=== PATIENT | male | born 1935 | race Caucasian/White ===

== ENCOUNTER 2016-12-19 11:52 | Emergency (ER) | payer MEDICARE, OTHER ==
[~2016-12-19] VITALS: Ht 172.7 cm; Wt 80.3 kg
[2016-12-19] MEDS ORDERED: HYDR25TAB PO (12:04)
[2016-12-19] MEDS ORDERED: MAGN30TA2 PO (12:04)
[2016-12-19] MEDS ORDERED: MULT1TAB18 PO (12:04)
[2016-12-19] MEDS ORDERED: NS 500 ML IV ONE (12:30)
[2016-12-19 12:39] LABS: BASO % 0.7 % (0.0-1.0); EOS # 0.4 K/mm3 (0.0-0.50); EOS % 5.3 % (0.0-3.0); LARGE UNSTAINED CELL # 0.2 K/mm3 (0.0-0.4); LARGE UNSTAINED CELL % 2.3 % (0.0-4.0); LYMPH # 2.1 K/mm3 (1.5-4.5); LYMPH % 28.9 % (24.0-44.0); MEAN CORPUSCULAR HEMOGLOBIN 33.1 pg (27.0-33.0); MEAN CORPUSCULAR HGB CONC 35.4 g/dl (32.0-36.5); MEAN CORPUSCULAR VOLUME 93.4 fl (80.0-96.0); MONO # 0.5 K/mm3 (0.0-0.8); MONO % 7.5 % (0.0-5.0); NEUTROPHILS # 3.7 K/mm3 (1.8-7.7); NEUTROPHILS % 55.4 % (36.0-66.0); PLATELET COUNT, AUTOMATED 240 k/mm3 (150-450); RED CELL DISTRIBUTION WIDTH 12.5 % (11.5-14.5); WHITE BLOOD COUNT 6.7 K/mm3 (4.0-10.0)
[2016-12-19 12:46] LABS: ANION GAP 11 MEQ/L (8-16); BLOOD UREA NITROGEN 30 MG/DL (7-18); CALCIUM LEVEL 8.2 MG/DL (8.8-10.2); CARBON DIOXIDE LEVEL 25 MEQ/L (21-32); CHLORIDE LEVEL 97 MEQ/L (98-107); CREATININE FOR GFR 1.13 MG/DL (0.70-1.30); GLOMERULAR FILTRATION RATE > 60.0 (>35); GLUCOSE, FASTING 136 MG/DL (83-110); POTASSIUM SERUM 3.9 MEQ/L (3.5-5.1); SODIUM LEVEL 133 MEQ/L (136-145)
--- NOTE | 2016-12-19 13:59 | REP ---
CT BRAIN WITHOUT CONTRAST: CT brain is performed without IV contrast. There is mild atrophy. There is no midline shift. No mass effect is seen. There is no acute hemorrhage. There is no extra-axial fluid collection. There is no skull fracture identified. There are vascular calcifications in the region of the carotid siphons. IMPRESSION: Mild atrophy. No acute hemorrhage. No skull fracture. Signed by Vernon Ross MD 12/19/2016 07:57 P
--- NOTE | 2016-12-19 14:02 | REP ---
CHEST, TWO VIEWS: No comparison studies. Two views of the chest are performed. Mild increased interstitial opacities in the lower lung zones are probably chronic in nature. No acute infiltrate is seen. The heart is normal in size. There is a calcified mitral annulus and mild calcification of the thoracic aorta. There are degenerative changes of the spine. IMPRESSION: Chronic changes without evidence of acute pulmonary disease. Signed by Vernon Ross MD 12/19/2016 07:57 P
[2016-12-19 15:05] VITALS: BP 146/64
--- NOTE | 2016-12-20 20:55 | ECGEPIP ---
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
== END 2016-12-19 15:07 | disposition home or self-care (01) ==
LOC: EDBD 11:52 → M ED 13:55
DX: R55 Syncope and collapse (principal); S01.01XA Laceration without foreign body of scalp, initial encounter; W19.XXXA Unspecified fall, initial encounter; Y92.22 Religious institution as the place of occurrence of the external cause; Y93.89 Activity, other specified; Y99.8 Other external cause status; I44.0 Atrioventricular block, first degree; I10 Essential (primary) hypertension; Z87.891 Personal history of nicotine dependence

== ENCOUNTER 2017-03-25 12:26 | Inpatient (IN) | payer MEDICARE, OTHER ==
[~2017-03-25] VITALS: Ht 172.7 cm; Wt 73.6 kg
[~2017-03-25 12:26] MED LIST: HYDR25TAB PO; MAGN30TA2 PO; MULT1TAB18 PO
[2017-03-25] MEDS ORDERED: SIMV40TA2 PO (12:43)
[2017-03-25] MEDS ORDERED: ASPI81TA85 PO (12:43)
[2017-03-25] MEDS ORDERED: PLAV1TAB2 PO (12:43)
[2017-03-25] MEDS ORDERED: METO50TA7 PO (12:43)
[2017-03-25] MEDS ORDERED: TRAZ50TA11 PO (12:43)
[2017-03-25] MEDS ORDERED: FLOM5CAP PO (12:43)
[2017-03-25] MEDS ORDERED: ACETAMINOPHEN TAB 650MG DOSE (2X325MG) PO ONE (13:30)
[2017-03-25 13:49] LABS: INR 1.07
[2017-03-25 13:56] LABS: ALBUMIN 2.5 GM/DL (3.2-5.2); ALBUMIN/GLOBULIN RATIO 0.63 (1.00-1.93); ALKALINE PHOSPHATASE 190 U/L (45-117); ALT/SGPT 77 U/L (12-78); ANION GAP 8 MEQ/L (8-16); AST/SGOT 51 U/L (15-37); BILIRUBIN,DIRECT 0.5 MG/DL (0.0-0.2); BILIRUBIN,TOTAL 1.1 MG/DL (0.2-1.0); BLOOD UREA NITROGEN 18 MG/DL (7-18); CALCIUM LEVEL 8.4 MG/DL (8.8-10.2); CARBON DIOXIDE LEVEL 24 MEQ/L (21-32); CHLORIDE LEVEL 94 MEQ/L (98-107); CREATININE FOR GFR 0.97 MG/DL (0.70-1.30); GLOMERULAR FILTRATION RATE > 60.0 (>35); GLUCOSE, FASTING 114 MG/DL (83-110); POTASSIUM SERUM 3.9 MEQ/L (3.5-5.1); SODIUM LEVEL 126 MEQ/L (136-145); TOTAL PROTEIN 6.5 GM/DL (6.4-8.2)
[2017-03-25 14:09] LABS: BASO % 0.1 % (0.0-1.0); EOS # 0.1 K/mm3 (0.0-0.50); EOS % 0.3 % (0.0-3.0); LARGE UNSTAINED CELL # 0.1 K/mm3 (0.0-0.4); LARGE UNSTAINED CELL % 0.7 % (0.0-4.0); LYMPH # 0.8 K/mm3 (1.5-4.5); LYMPH % 4.2 % (24.0-44.0); MEAN CORPUSCULAR HEMOGLOBIN 33.3 pg (27.0-33.0); MEAN CORPUSCULAR HGB CONC 35.7 g/dl (32.0-36.5); MEAN CORPUSCULAR VOLUME 93.3 fl (80.0-96.0); MONO % 5.9 % (0.0-5.0); NEUTROPHILS # 15.3 K/mm3 (1.8-7.7); NEUTROPHILS % 88.7 % (36.0-66.0); PLATELET COUNT, AUTOMATED 330 k/mm3 (150-450); RED CELL DISTRIBUTION WIDTH 13.2 % (11.5-14.5); WHITE BLOOD COUNT 17.3 K/mm3 (4.0-10.0)
--- NOTE | 2017-03-25 14:19 | REP ---
Portable chest, 01:41 p.m., single AP view, the patient semi upright: Comparison is 12/19/2016. There are sternotomy wires, not present previously. Cardiac size appears enlarged, however there is magnification from portable positioning. There are no focal infiltrates or pleural effusions. The interstitium is mildly coarsened. This is nonspecific and could be artifact from portable technique or could represent interstitial infiltrates. Signed by Vernon Acosta MD 03/25/2017 02:11 P
[2017-03-25] MEDS ORDERED: ISOVUE-370 76% 100ML VIAL (Q9967) As Ordered ONE (15:06)
--- NOTE | 2017-03-25 15:45 | REP ---
CT of the chest with IV contrast: There are no comparisons. There are bilateral pleural effusions. There is an infiltrate in the left upper lobe. There are sternotomy wires and aortic valve replacement. There is no mediastinal hematoma or inflammation. There are a few mediastinal lymph nodes, a few are borderline enlarged. There is no hilar adenopathy. Thoracic aorta is unremarkable except for occasional calcified atheroma. Cardiac size is normal. There is no pericardial effusion. Impression: Left upper lobe infiltrate. Bilateral pleural effusions. No mediastinal inflammation, abscess or hematoma. Signed by Vernon Acosta MD 03/25/2017 03:37 P
--- NOTE | 2017-03-25 15:51 | REP ---
CT of the abdomen and pelvis with IV contrast, without bowel contrast: There are no comparisons. There are bilateral pleural effusions. The hepatic parenchyma, gallbladder, pancreas and spleen are unremarkable. The adrenals, kidneys and abdominal aorta are unremarkable. There is no bowel distension or obstruction. There is no ascites. There are no focal fluid collections to suggest abscess or hematoma. Pelvis: There is a trace of ascites in the in the right colic gutter near the cecum. There are diverticula in the ascending colon and the cecum. There is no CT evidence of diverticulitis. The bladder is unremarkable. There is no adenopathy. There are no lytic, blastic or destructive skeletal changes. There is degenerative disc disease in the lumbar spine. Impression: Bilateral pleural effusions. No ascites. No focal fluid collections to suggest abscess. No adenopathy or mass. Otherwise, negative CT of the abdomen and pelvis. Signed by Vernon Acosta MD 03/25/2017 03:43 P
[2017-03-25] MEDS ORDERED: PIPERACILLIN/TAZOBACTAM SOD 3.375 GM in D5W MINI-BAG PLUS 50 ML IV ONE (16:00)
[2017-03-25] MEDS ORDERED: fentaNYL 100 MCG/2 ML INJECTION (J3010) IV ONE (16:00)
[2017-03-25] MEDS ORDERED: PERCOCET 5MG/325MG TAB PO ONE (16:45)
[2017-03-25] MEDS ORDERED: NS 1,000 ML IV SCH (17:10)
[2017-03-25] MEDS ORDERED: ACETAMINOPHEN TAB 650MG DOSE (2X325MG) PO PRN (17:15)
[2017-03-25] MEDS ORDERED: IPRATROPIUM 0.5MG/ALBUTEROL 2.5MG INH SOL UD 3ML (DUONEB)(J7620) NEB PRN (17:15)
--- NOTE | 2017-03-25 18:38 | PHACANCOPD ---
PHARMACY VANCOMYCIN DOSING Pt Demographics Demographics Patient Age:81 , Weight:75.000 , Gender: male Adjusted Body Weight Date: 03/25/17, Adjusted Body Weight: Kg Events Past 24 Hours Events Past 24 Hours: YES: Fever, Elevation in WBC, Pending Diagnostics Vancomycin Vancomycin indication: Hospital Acquired Pneumonia Vancomycin Target Ranges: 15-20 mcg/ml Vancomycin Load Y/N: Yes Load Dose Date Time Vancomycin Load Dose: 1750mg Date: 03/25/17 Time: 2000 Vancomycin Dose Date: 03/25/17. Current Vancomycin Dose: [1g IV Q12H] Intermittent Dosing?: No Labs Labs Item Value Date Time White Blood Count 17.3 K/mm3 H 03/25/17 1249 Creatinine 0.97 MG/DL 03/25/17 1249 Micro Microbiology 03/25/17 Blood Culture, Received Pending 03/25/17 Blood Culture, Received Pending 03/25/17 Influenza Virus Type A Antigen - Final, Complete 03/25/17 Influenza Virus Type B Antigen - Final, Complete 03/25/17 Urine Culture, Received Pending Creatinine Clearance Date:03/25/17. EstimatedCreatinine Clearance: [~57ml/min]. Pending Labs Vancomycin trough scheduled 03/27/17 @0700 Assessment and Plan Maintaining Current Dose?: Yes Reason for dose change: No Dose Change Pharmacist Note Pharmacist Note Date: 03/25/17. Pharmacist note: Day#1 empiric zosyn/vanco tx initiated with a 1750mg loading dose, followed by a maintenance regimen of 1g IV Q12H for the treatment of HAP - aiming for a goal trough of 15-20mcg/ml. The patient is s/p a valve replacement and bypass surgery on 03/14/17, and is now with left upper lobe infiltrate on chest CT. WBC is currently elevated, and the patient is febrile. No PMH of MRSA or vanco use here at [facility]. Blood and urine cultures are pending. A vancomycin trough has been scheduled for 03/27/17 @0700, prior to the 4th dose. We will continue to monitor and make dose adjustments if needed. Z[facility] Mar 25, 2017 18:38
[2017-03-25 20:00] VITALS: BP 132/60
[2017-03-25] MEDS ORDERED: VANCOMYCIN HCL 750 MG, VIAL MATE ADAPTER 1 EACH in D5W 250 ML IV ONE (20:00)
[2017-03-25] MEDS: SIMVASTATIN 40 MG TAB PO SCH (20:20)
[2017-03-25] MEDS: ASPIRIN 81 MG ENTERIC TAB PO SCH (20:20)
[2017-03-25] MEDS: TAMSULOSIN 0.4 MG CAP PO SCH (20:20)
[2017-03-25] MEDS: VANCOMYCIN HCL 1,000 MG, VIAL MATE ADAPTER 1 EACH in D5W 250 ML IV SCH (20:20)
[2017-03-25] MEDS: SENOKOT S TAB PO SCH (20:20)
[2017-03-25] MEDS: traZODone 50 MG TAB PO SCH (20:20)
[2017-03-25] MEDS: METOPROLOL TART 50 MG TAB PO SCH (20:22)
--- NOTE | 2017-03-25 22:10 | HPEPDOC ---
General Date of Admission 03/25/17 Attending Physician: FRANC MURPHY MD Chief Complaint The patient is a 81-year-old male admitted with a reason for visit of Surgical Problem. History of Present Illness PRIMARY CARE PROVIDER: Linnea Brunson Nurse Practitioner at [facility] in [place] CHIEF COMPLAINT: "up and down fever, continuous discomfort across mid-abdomen" HISTORY OF PRESENT ILLNESS: 81 yo M is presenting to the [facility] ED for at least a 1 week on and off hx of feeling totally overheated and then chilly the next moment. He apparently developed a cough after his open heart surgery done ~11 days ago. Had aortic valve repair and CABG at the [facility] in [place] in March 2017 ~>1 week ago. States that after his surgery, his nose was stuffy. States he was sedated for a day. States that every time he coughed, his major issue was the pain and ache in his upper chest across the entire chest. This has lasted a week at least. States that he would get relief from the pain in the mornings and pain would start again when he went to bed. After going to bed and trying to get comfortable by changing positions, he would cough and that was very painful. His pain lasted as long as he was coughing, then it diminished. He also reports sputum production which is yellow without hemoptysis. Reports sputum production is painful. He would get some relief in the mornings, but his coughing would be more frequent in the night. Pain seemed to be cumulative and destroyed his will to live. Currently, denies fevers, chills, cardiac chest pain, SOB, rib pain, abdominal pain, nausea. vomiting, diarrhea, hematochezia, hematuria, dysuria, urinary frequency, dizziness, headache. Admits to a few days of constipation, but his last BM was this morning. Admits to urine looking a little dark. He also admits to loss of appetite before his open heart surgery for a couple of months which began this year. States he lost a few lbs: weight was 180 lbs and went gradually down to 160 lbs over several months. Denies night sweats. Admits to ankle edema that he's had for a while but this is not new. Denies orthopnea or PND. Of note, Dr. Chin of the Emergency Department states that she spoke to patient's cardiothoracic surgeon Dr. Denise on the phone about patient's hx. She was able to find out that patient had a R coronary bypass surgery with aortic valve repair and had a hx of aortic stenosis. In addition, she reported the results of the EKG done in the ED: which showed sinus rhythm with ventricular rate 79 bpm with possible L atrial enlargement and ST elevation in leads II, II , AVF and T-wave inversion in lead AVL. I was told that Dr. Denise stated that it is not uncommon to see ST elevations, STEMI, and repolarizations on the EKG post -operative CABG. He recommended for us to medically manage the patient. PAST MEDICAL HISTORY: Hypertension Hypercholesterolemia Enlarged Prostate Aortic Stenosis status-post aortic valve repair and CABG x 1 Pneumonia when he was 21 years old Hx of Influenza in the past Denies hx of AZ or stent placement, denies hx of COPD or asthma PAST SURGICAL HISTORY: Open Heart Surgery for aortic stenosis, aortic valve repair, CABG x 1 in March 2017 Had an angiogram through his groin Ruptured R Achilles Tendon Repair Tonsillectomy MEDICATIONS: please see below ALLERGIES: NKDA. SOCIAL HISTORY: Smoked when he was a young man until his 30s: ~2 PPD x 20 years EtOH: doesn't drink anymore. Was quite a heavy drinker, drank every day: many bottles of beers for ~30 years on and off Denies illicit drug use No pets in the home Lives home alone. 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 Lives in [place] alone and is . FAMILY HISTORY: Father: of cirrhosis of the liver Mother: of emphysema Has no siblings CODE STATUS: FULL CODE REVIEW OF SYSTEMS: All ROS are negative except for that as stated above in HPI. PHYSICAL EXAMINATION: Please see VS and physical exam below. Patient had temperature of 100 temporal initially in the ED. Later, he had a temperature of 100.8 rectally. LABORATORY DATA: Remarkable for WBC of 17.3, Hgb of 8.8 today from 13.1 in December 2016, MCV 93.3, sodium of 126, fasting glucose 114, lactic acid 1.2, total bilirubin of 1.1, direct bilirubin of 0.5, AST of 51, alk phos of 130, albumin of 2.5, PT of 14.1 , INR of 1.07. UA was yellow, clear, 1+ protein, 1+ blood, negative nitrite, negative ketones, 4 urobilinogen, negative leukocyte esterase, 4 WBCs, 6 RBCs, negative bacteria, small mucus. MICROBIOLOGY: Blood cx x 2 pending Urine cx pending Influenza A & B: (-) ELECTROCARDIOGRAM: Sinus rhythm, possible L atrial enlargement, ST elevation in leads II, III, avF , T wave inversion in aVL, peaked T-waves in V2 and V3. Ventricular Rate: 79 bpm, SC interval: 205 ms, QRS duration: 102 ms, QTc: [address] elevation findings are new compared to EKG done on 12/19/16 which showed sinus rhythm with 1st degree AV block, moderate voltage criteria for LVH, T waves peaked in V2 and V3. RADIOLOGY: Portable CXR: no focal infiltrates or pleural effusions, interstitium is mildly coarsened, nonspecific and could be artifact from portable technique or could represent interstitial infiltrates. CT of chest with IV contrast: FEMI infiltrate, bilateral pleural effusions. No mediastinal inflammation, abscess or hematoma. CT of abdomen/pelvis with IV contrast without bowel contrast: bilateral pleural effusions. No ascites. No focal fluid collections to suggest abscess. No adenopathy or mass. Trace ascites in the R colic gutter near the cecum. Diverticula in the ascending colon and cecum. No CT evidence of diverticulitis. ASSESSMENT: 81 yo M with a PMH significant for HTN, hypercholesterolemia, and aortic stenosis who is 11 days status-post open heart surgery with a R coronary bypass and aortic valve repair, is presenting for hospital acquired pneumonia, leukocytosis, fever with last febrile temperature of 100.8 rectally, as well as anemia with Hgb drop in December 2016 from 13.1 to 8.8 today. PLAN: Will admit to PCU. HAP: Will treat with vancomycin and zosyn. Obtain sputum cultures, nebulized treatments q2h PRN. Will encourage accapella and order oxygen therapy PRN for saturations below 90%. Pain control will be with tylenol and percocet. Leukocytosis: obtain blood cx x 2 and urine cx. Fever: PRN tylenol with MDD of 3 g. Anemia: obtain occult blood stool and Type & Screen New EKG findings suggestive of acute inferior wall AZ with ST elevations and T- wave inversions plus peaked T-waves: will trend cardiac marker panel and trend troponins. Obtain another EKG in the morning. Consider cardiology consult and echocardiogram. Chronic Medical Conditions: Hypertension Hypercholesterolemia Enlarged Prostate Aortic Stenosis status-post aortic valve repair and CABG x 1 Pneumonia when he was 21 years old Hx of Influenza in the past Will continue home medications for the above listed chronic medical problems that apply. PT Evaluation ordered. DVT ppx: lovenox, TEDs, SCDs FULL CODE STATUS Immunizations as per protocol I have both independently examined this patient as well as reviewed the dictated note. I have discussed in detail with the resident the findings and plan of treatment as documented in the residents note. I will continue to follow the patient and offer further guidance to the patients care as necessary during this hospital stay. Home Medications Scheduled (Senna Plus 8.6-50 mg) 1 Tab Tab, 1 TAB PO BID Aspirin (Aspir-81) 81 Mg Tab, 81 MG PO QHS, (Reported) Cephalexin Monohydrate (Cephalexin) 250 Mg Tab, 250 MG PO QID Clopidogrel Bisulfate (Plavix) 75 Mg Tab, 75 MG PO DAILY, (Reported) Metoprolol Tartrate (Metoprolol Tartrate) 50 Mg Tab, 50 MG PO TID, (Reported) Simvastatin - High Dose (Simvastatin) 40 Mg Tab, 40 MG PO QHS, (Reported) Tamsulosin Hydrochloride (Flomax) 0.4 Mg Cap, 0.4 MG PO QHS, (Reported) Trazodone HCl (Trazodone HCl) 50 Mg Tab, 50 MG PO QHS, (Reported) Allergies Coded Allergies: No Known Allergies (Unverified , 03/25/17) Physical Examination General Exam: Positive: Alert, Cooperative, No Acute Distress Eye Exam: Positive: Conjunctiva & lids normal ENT Exam: Positive: Atraumatic Neck Exam: Positive: Supple, Negative: JVD, thyromegaly, Lymphadenopathy Chest Exam: Positive: Rales (mild crackles in the lung bases bilterally), Negative: Rhonchi, Wheezing Heart Exam: Positive: Rate Normal, Regular Rhythm, Normal S1, Normal S2, Negative: Murmurs Abdomen Exam: Positive: Normal bowel sounds, Soft, Other (+tenderness to palpation of LUQ > RUQ as well as midepigastric area. ), Negative: Hepatospenomegaly Extremity Exam: Positive: Edema (+1 mlld pitting edema is pema), Normal pulses, Negative: Clubbing, Cyanosis Skin Exam: Positive: Nl turgor and temperature, Negative: Rash Neuro Exam: Positive: Normal Speech, Other (no focal neurologic deficits appreciated bilaterally) Psych Exam: Positive: Mental status NL, Mood NL, Memory Intact, Oriented x 3 Vital Signs Vital Signs Date Time Temp Pulse Resp B/P (MAP) Pulse Ox O2 Delivery O2 Flow Rate FiO2 03/25/17 17:59 18 03/25/17 16:56 80 96 03/25/17 16:51 121/59 (79) 03/25/17 13:53 100.8 03/25/17 12:26 Room Air Laboratory Data Labs 24H Laboratory Tests 2 03/25/17 12:49: White Blood Count 17.3H, Red Blood Count 2.65L, Hemoglobin 8.8L, Hematocrit 24.7L, Mean Corpuscular Volume 93.3, Mean Corpuscular Hemoglobin 33.3H, Mean Corpuscular Hemoglobin Concent 35.7, Red Cell Distribution Width 13.2, Platelet Count 330, Neutrophils (%) (Auto) 88.7H, Lymphocytes (%) (Auto) 4.2L, Monocytes (%) (Auto) 5.9H, Eosinophils (%) (Auto) 0.3, Basophils (%) (Auto) 0.1, Neutrophils # (Auto) 15.3H, Lymphocytes # (Auto) 0.8L, Monocytes # (Auto) 1.0H, Eosinophils # (Auto) 0.1, Basophils # (Auto) 0.0, Large Unclassified Cells % 0.7 , Large Unclassified Cells # 0.1, Prothrombin Time 14.1, Prothromb Time International Ratio 1.07, Activated Partial Thromboplast Time 28.4, Urine Appearance CLEAR, Urine Color YELLOW, Urine pH 5.0, Urine Specific [place] 1.018 , Urine Protein 1+H, Urine Glucose (UA) NEGATIVE, Urine Ketones NEGATIVE, Urine Urobilinogen 4.0H, Urine Bilirubin NEGATIVE, Urine Leukocyte Esterase NEGATIVE, Urine Blood 1+H, Urine Nitrite NEGATIVE, Urine WBC (Auto) 4H, Urine RBC (Auto) 6H, Urine Hyaline Casts (Auto) 0, Urine Bacteria (Auto) NEGATIVE, Urine Squamous Epithelial Cells 0, Urine Mucus (Auto) SMALL, Urine Sperm (Auto) , Anion Gap 8, Glomerular Filtration Rate > 60.0, Lactic Acid Level 1.2, Calcium Level 8.4L, Aspartate Amino Transf (AST/SGOT) 51H, Alanine Aminotransferase (ALT /SGPT) 77, Alkaline Phosphatase 190H, Total Bilirubin 1.1H, Direct Bilirubin 0.5H, Total Creatine Kinase 46, Creatine Kinase MB 1.2, Creatine Kinase MB Relative Index 2.60, Troponin I 0.04, Total Protein 6.5, Albumin 2.5L, Albumin/ Globulin Ratio 0.63L 03/25/17 19:41: CBC/BMP Laboratory Tests 03/25/17 12:49 Red Blood Count 2.65 L, Mean Corpuscular Volume 93.3, Mean Corpuscular Hemoglobin 33.3 H, Mean Corpuscular Hemoglobin Concent 35.7, Red Cell Distribution Width 13.2, Neutrophils (%) (Auto) 88.7 H, Lymphocytes (%) (Auto) 4.2 L, Monocytes (%) (Auto) 5.9 H, Eosinophils (%) (Auto) 0.3, Basophils (%) ( Auto) 0.1, Neutrophils # (Auto) 15.3 H, Lymphocytes # (Auto) 0.8 L, Monocytes # (Auto) 1.0 H, Eosinophils # (Auto) 0.1, Basophils # (Auto) 0.0 Microbiology Microbiology 03/25/17 Blood Culture, Received Pending 03/25/17 Blood Culture, Received Pending 03/25/17 Influenza Virus Type A Antigen - Final, Complete 03/25/17 Influenza Virus Type B Antigen - Final, Complete 03/25/17 Urine Culture, Received Pending Plan / VTE VTE Prophylaxis Ordered?: Yes (lovenox) AVILACHECOGONZALO OGME-1 Mar 25, 2017 19:58 FRANC MURPHY MD Apr 11, 2017 14:38
[2017-03-25] MEDS: PIPERACILLIN/TAZOBACTAM SOD 4.5 GM in D5W MINI-BAG PLUS 100 ML IV SCH (23:17)
[2017-03-26] VITALS (7 sets, daily range): BP systolic 109–150; BP diastolic 55–60
[2017-03-26 01:31] LABS: MEAN CORPUSCULAR HEMOGLOBIN 32.8 pg (27.0-33.0); MEAN CORPUSCULAR VOLUME 93.6 fl (80.0-96.0); WHITE BLOOD COUNT 15.2 K/mm3 (4.0-10.0)
[2017-03-26] MEDS: PIPERACILLIN/TAZOBACTAM SOD 4.5 GM in D5W MINI-BAG PLUS 100 ML IV SCH ×4 (05:01→23:31)
[2017-03-26] MEDS: VANCOMYCIN HCL 1,000 MG, VIAL MATE ADAPTER 1 EACH in D5W 250 ML IV SCH ×2 (06:49→17:55)
--- NOTE | 2017-03-26 08:14 | ECGEPIP ---
Stationary ECG Study [facility] - ED Test Date: 2017-03-25 Pat Name: GEOVANNY EISENBERG Department: Room: - Gender: M Cardiology Coordinator: : 1935 Requested By: CHIARA Guzmán Order Number: [id number] Reading MD: Jillian Luis Measurements Intervals [place] Rate: 79 P: 15 [place]: 205 QRS: 11 QRSD: 102 T: 92 QT: 382 QTc: 440 Interpretive Statements SINUS RHYTHM POSSIBLE LEFT ATRIAL ENLARGEMENT ST ELEVATION, CONSIDER ACUTE INFERIOR TX, CLINICAL CORRELATION Electronically Signed On 03-26-2017 8:14:03 EDT by Jillian Luis
[2017-03-26] MEDS: SENOKOT S TAB PO SCH ×2 (08:16→20:21)
[2017-03-26] MEDS: METOPROLOL TART 50 MG TAB PO SCH ×3 (08:16→20:20)
[2017-03-26] MEDS: ENOXAPARIN 40 MG/0.4 ML SYRINGE (J1650) SC SCH (08:16)
[2017-03-26] MEDS: CLOPIDOGREL 75 MG TAB PO SCH (08:16)
--- NOTE | 2017-03-26 12:08 | ECGEPIP ---
Stationary ECG Study [facility] Test Date: 2017-03-26 Pat Name: GEOVANNY EISENBERG Department: Room: - Gender: M Telephone Maintainer: margaret : 1935 Requested By: GONZALO GORMAN1 Order Number: [id number] Reading MD: Quincy Fuentes Measurements Intervals [place] Rate: 89 P: 21 NE: 195 QRS: 20 QRSD: 89 T: 110 QT: 374 QTc: 456 Interpretive Statements SINUS RHYTHM POSSIBLE LEFT ATRIAL ENLARGEMENT ST ELEVATION, CONSIDER INFERIOR INJURY MINIMAL CHANGE SINCE 03/25/17 Electronically Signed On 03-26-2017 12:08:00 EDT by Quincy Fuentes
[2017-03-26] MEDS: SIMVASTATIN 40 MG TAB PO SCH (20:20)
[2017-03-26] MEDS: traZODone 50 MG TAB PO SCH (20:20)
[2017-03-26] MEDS: TAMSULOSIN 0.4 MG CAP PO SCH (20:21)
[2017-03-26] MEDS: ASPIRIN 81 MG ENTERIC TAB PO SCH (20:21)
[2017-03-27] VITALS (7 sets, daily range): BP systolic 107–147; BP diastolic 56–76
[2017-03-27] MEDS: PIPERACILLIN/TAZOBACTAM SOD 4.5 GM in D5W MINI-BAG PLUS 100 ML IV SCH ×4 (05:31→23:14)
[2017-03-27 07:21] LABS: MEAN CORPUSCULAR HEMOGLOBIN 31.9 pg (27.0-33.0); MEAN CORPUSCULAR VOLUME 93.9 fl (80.0-96.0); RED CELL DISTRIBUTION WIDTH 13.5 % (11.5-14.5)
[2017-03-27 07:41] LABS: ALBUMIN 1.9 GM/DL (3.2-5.2); ALBUMIN/GLOBULIN RATIO 0.56 (1.00-1.93); ALKALINE PHOSPHATASE 147 U/L (45-117); ALT/SGPT 91 U/L (12-78); ANION GAP 10 MEQ/L (8-16); AST/SGOT 61 U/L (15-37); BILIRUBIN,TOTAL 0.6 MG/DL (0.2-1.0); BLOOD UREA NITROGEN 15 MG/DL (7-18); CALCIUM LEVEL 7.6 MG/DL (8.8-10.2); CARBON DIOXIDE LEVEL 22 MEQ/L (21-32); CHLORIDE LEVEL 97 MEQ/L (98-107); CREATININE FOR GFR 1.09 MG/DL (0.70-1.30); GLOMERULAR FILTRATION RATE > 60.0 (>35); GLUCOSE, FASTING 115 MG/DL (83-110); MAGNESIUM LEVEL 2.1 MG/DL (1.8-2.4); POTASSIUM SERUM 3.5 MEQ/L (3.5-5.1); SODIUM LEVEL 129 MEQ/L (136-145); TOTAL PROTEIN 5.3 GM/DL (6.4-8.2)
[2017-03-27] MEDS: SENOKOT S TAB PO SCH ×2 (08:05→20:17)
[2017-03-27] MEDS: ENOXAPARIN 40 MG/0.4 ML SYRINGE (J1650) SC SCH (08:06)
[2017-03-27] MEDS: METOPROLOL TART 50 MG TAB PO SCH ×3 (08:06→20:17)
[2017-03-27] MEDS: CLOPIDOGREL 75 MG TAB PO SCH (08:06)
[2017-03-27] MEDS: VANCOMYCIN HCL 1,000 MG, VIAL MATE ADAPTER 1 EACH in D5W 250 ML IV SCH ×2 (08:06→18:27)
[2017-03-27 09:17] LABS: RETIC HEMOGLOBIN CONTENT CHr 26.6 PG (24-36); RETICULOCYTE % 3.3 % (0.5-1.5)
--- NOTE | 2017-03-27 09:29 | IPN ---
DATE: 03/27/2017 81-year-old gentleman seen at bedside resting comfortably. He denies any issues overnight. No chest pain, no shortness of breath. Having intermittent productive sputum. No hemoptysis. No nausea, vomiting. Bowel movements have been regular with no hematochezia or melena. PHYSICAL EXAMINATION: Temperature is 97.5, pulse 85, respiratory rate 18, blood pressure 124/58, SPO2 is 97% on room air. GENERAL: The patient appears to be in no acute distress, is alert and oriented. HEENT: Unremarkable. LUNGS: Clear. HEART: Regular rhythm. ABDOMEN: Soft. EXTREMITIES: No edema. No calf tenderness. LABORATORY DATA: White count 10, hemoglobin is 7.1, platelets 250,000. Sodium 129, potassium 3.5, chloride 97, bicarb 22, anion gap 10, BUN is 15, creatinine is 1.09, glucose 115, calcium is 7.6, AST 61, ALT 91, alkaline phosphatase 147. Troponins have been cycled, this morning is 0.07, and he is having no chest pain. ASSESSMENT/PLAN: 1. Healthcare associated pneumonia. Continue with IV antibiotics as outlined. 2. Anemia, likely acute on chronic. I did go ahead and discontinue his IV fluids. Will check stool for occult blood. Stop the Lovenox. He will continue on the aspirin for the time being and will do iron studies, B12, folate. Repeat the hemoglobin and hematocrit at noon. This may be multifactorial, which could include acute on chronic conditions as well as hemodilutional due to the IV fluids he has been receiving. At any rate, we will repeat it and if he is not showing any improvement, may consider giving 1-2 units packed red blood cells this afternoon. 3. Hyponatremia. Will encourage increase solute with his oral intake. He is not on any diuretics and to be noted, it does appear to be trending upward from. He appears to be relatively euvolemic. Will go and add on a TSH. 4. Hypertension. Stable. Will continue to follow. 5. Hyperlipidemia. Continue statin. 6. History of benign prostatic hypertrophy (BPH). Continue tamsulosin. 7. History of aortic stenosis status post aortic valve repair and CABG. No cardiac symptoms. 8. Deep vein thrombosis (DVT) prophylaxis. We did discontinue the Lovenox due to his drop in hemoglobin and hematocrit and will do workup as outlined above. Will encourage ambulation with assistance. MTDD
[2017-03-27 09:42] LABS: PERCENT SATURATION 5.7 % (19.7-50.0)
--- NOTE | 2017-03-27 09:45 | IPNPDOC ---
Text Note Date of Service The patient was seen on 03/26/17. NOTE Subjective: Patient seen and examined at bedside. States he feels a little better today. Denies fevers, chest pain, SOB, abdominal pain, nausea, vomiting, diarrhea, constipation. Denies cough and much sputum production. Feels a little cold. Admits to pain in the area of his incisional sites. Objective: Please see VS and PE below. VSS and significant for temperature of 100. Laboratory data: CBC showed WBC 15.2 from 17.3, H&H was 8.6 & 24.7 from 8.8 & 24.7. Troponins: 0.04, 0.05, 0.10, and 0.06. Another troponin is pending. UA: (-) Microbiology: Urine cx: (-) Blood cx: NGTD Influenza A&B: (-) Imaging: No new imaging. EKG today: Sinus rhythm, possible L atrial enlargement, ST elevation in leads II, III, AVF. T-wave inversions in aVL. Peaked T-waves in V1-V3. Consider inferior injury. Rate: 89, MN: 195, QRS duration: 89, QTc: 456. Minimal change since 03/25/17 and clinically correlate. Repeat EKG today at 15:24:45: Sinus rhythm, nonspecific ST & T-wave abnormality. Ventricular rate: 81, MN interval: 207, QRS duration: 98, QTc: 440. ST elevations in lead I, II, aVF. Lead III showed some low voltage and did not show ST elevation like prior EKG. Lead aVL did not show T-wave inversion like it showed in prior EKG. There were peaked T-waves in leads V1-V3 still. Assessment/Plan: 81 yo M with a PMH significant for HTN, hypercholesterolemia, and aortic stenosis who is 11 days status-post open heart surgery with a R coronary bypass and aortic valve repair, is presenting for hospital acquired pneumonia, leukocytosis, fever with last febrile temperature of 100.8 rectally, as well as anemia with Hgb drop in December 2016 from 13.1 to 8.8 on day of admission. CT of chest with IV contrast showed FEMI infiltrate, bilateral pleural effusions. No mediastinal inflammation, abscess or hematoma. CT of abdomen/pelvis with IV contrast without bowel contrast: bilateral pleural effusions. No ascites. No focal fluid collections to suggest abscess. No adenopathy or mass. Trace ascites in the R colic gutter near the cecum. Diverticula in the ascending colon and cecum. No CT evidence of diverticulitis. HAP: will treat with vancomycin and zosyn. Obtain sputum cultures, nebulized treatments q2h PRN. Will encourage accapella and order oxygen therapy PRN for saturations below 90%. Pain control will be with tylenol and percocet. Leukocytosis: improved today. WBC has gone down from 17.3 to 15.2. Urine cx were negative. Blood cx show NGTD. Continue antibiotics. Fever: PRN tylenol with MDD of 3 g. Patient's max temperature today has been 100. Fever is controlled. Anemia: obtain occult blood stool and Type & Screen. Hgb has dropped from 8.8 to 8.6. Consider blood loss anemia. Await results for occult blood stool. New EKG findings suggestive of acute inferior wall RI with ST elevations and T- wave inversions plus peaked T-waves: will trend cardiac marker panel and trend troponins. Troponins were elevated today as above. Please see under laboratory section. EKG similar with minimal change from past. Please see above. Patient not c/o chest pain. Called aerial tram operator at the [facility] in [place] where patient went for surgery. Spoke with aerial tram operator business operations manager Dr. Reji Pugh who recommended to continue to trend troponins as they were elevated and they would help give an idea of the peak and trend if patient developed a cardiac event. A repeat EKG was also done on 03/26 which showed sinus rhythm, nonspecific ST & T wave abnormality with a few differences: ST elevation in lead I, no T-wave inversions in lead aVL, no ST elevation in lead III. Please see above for full details. Patient otherwise is in stable condition and still not c/o any chest pain. In addition, as stated in H&P, cardiothoracic surgeon had stated that ST elevations and repolarization changes on EKG are not uncommon status-post CABG and recommended for us to treat the patient medically. Consider cardiology consult and echocardiogram. Aortic Stenosis status-post aortic valve repair and CABG x 1: continue aspirin, plavix, simvastatin, metoprolol. Hypertension: continue metoprolol. Hypercholesterolemia: continue simvastatin Enlarged Prostate: continue flomax. Hx of Influenza in the past: tested (-) for influenza A&B. Will continue other home medications as needed. PT Evaluation ordered. DVT ppx: lovenox, TEDs, SCDs FULL CODE STATUS Immunizations as per protocol My preceptor for this patient encounter was Dr. Ramiro Bruce, and was physically present in the building during the encounter and was fully available. As needed, all aspects of the patient interview, examination, medical decision making process, and medical care plan development were reviewed and approved by the preceptor. Preceptor is aware and concurs with the plan as stated in the body of this note and will attest to such by his/her cosignature. VS,Fishbone, I+O VS, Fishbone, I+O Laboratory Tests 03/26/17 01:14 Red Blood Count 2.64 L, Mean Corpuscular Volume 93.6, Mean Corpuscular Hemoglobin 32.8, Mean Corpuscular Hemoglobin Concent 35.0, Red Cell Distribution Width 13.0 Vital Signs Date Time Temp Pulse Resp B/P (MAP) Pulse Ox O2 Delivery O2 Flow Rate FiO2 03/26/17 12:00 98.7 76 18 109/55 (73) 96 Room Air I&O- Last 24 Hours up to 6 AM 03/26/17 06:00 Intake Total 1385 ml Output Total 1300 ml Balance 85 ml Physical Examination Physical Examination Vital Signs/I&O Vital Signs Date Time Temp Pulse Resp B/P (MAP) Pulse Ox O2 Delivery O2 Flow Rate FiO2 03/27/17 08:06 75 124/58 03/27/17 08:00 97.5 18 97 Room Air I&O- Last 24 Hours up to 6 AM 03/27/17 05:59 Intake Total 1850 ml Output Total 955 ml Balance 895 ml General Exam: Positive: alert, attentive, talkative, cooperative, no acute distress, oriented times three ENT EXAM: Positive: normocephalic, atraumatic Neck Exam: Positive: Supple Chest Exam: Positive: Rales (bilateral lung bases), Decreased breath sounds ( in bases), Negative: Clear to auscultation Heart Exam: Positive: Regular rate and rhythm, Normal S1, S2, Negative: Murmurs Abdominal Exam: Positive: Normal bowel sounds, Soft, Nondistended, Other (+ tenderness to palpation of midepigastric area around incisional site. No lower abdominal quadrant tenderness to palpation.) Extremity Exam: Positive: Other (+1 mild edema of bilateral lower extremities. +2 dorsalis pedis pulses bilaterally.) Skin Exam: Positive: Other (cool lower extremities bilaterally. ) Neuro Exam: Positive: Normal Speech, Other (no focal neurologic deficitis appreciated bilaterally.) Psych Exam: Positive: Mental status NL, Mood NL, Memory Intact, Alert and oriented x 3 Laboratory Data Labs 24H Laboratory Tests 2 03/26/17 18:20: Total Creatine Kinase 46, Creatine Kinase MB 1.0, Creatine Kinase MB Relative Index 2.17, Troponin I 0.06# 03/27/17 00:14: Total Creatine Kinase 43, Creatine Kinase MB 1.0, Creatine Kinase MB Relative Index 2.32, Troponin I 0.07 03/27/17 07:02: Anion Gap 10, Glomerular Filtration Rate > 60.0, Blood Urea Nitrogen 15, Creatinine 1.09, Sodium Level 129L, Potassium Level 3.5, Chloride Level 97L, Carbon Dioxide Level 22, Calcium Level 7.6L, Aspartate Amino Transf (AST/SGOT) 61H, Alanine Aminotransferase (ALT/SGPT) 91H, Alkaline Phosphatase 147H, Total Bilirubin 0.6, Total Protein 5.3L, Albumin 1.9#L, Magnesium Level 2.1, Albumin/ Globulin Ratio 0.56L, Vancomycin Level Trough 12.9 03/27/17 09:00: Absolute Reticulocyte Count 78H, Percent Reticulocyte Count 3.30H, Reticulocyte Hgb Content (CHr) 26.6 CBC/BMP Laboratory Tests 03/27/17 07:02 Red Blood Count 2.23 L, Mean Corpuscular Volume 93.9, Mean Corpuscular Hemoglobin 31.9, Mean Corpuscular Hemoglobin Concent 34.0, Red Cell Distribution Width 13.5, Calcium Level 7.6 L, Aspartate Amino Transf (AST/SGOT) 61 H, Alanine Aminotransferase (ALT/SGPT) 91 H, Alkaline Phosphatase 147 H, Total Bilirubin 0.6, Total Protein 5.3 L, Albumin 1.9 #L Microbiology Microbiology 03/25/17 Blood Culture - Preliminary, Resulted No growth after 24 hours . All specim... 03/25/17 Blood Culture - Preliminary, Resulted No growth after 24 hours . All specim... 03/25/17 Influenza Virus Type A Antigen - Final, Complete 03/25/17 Influenza Virus Type B Antigen - Final, Complete 03/25/17 Urine Culture - Final, Complete GONZALO AVILAME-1 Mar 26, 2017 12:50
--- NOTE | 2017-03-27 12:43 | ECGEPIP ---
Stationary ECG Study [facility] Test Date: 2017-03-26 Pat Name: GEOVANNY EISENBERG Department: Room: [place] [address] Gender: M Filament Cutter: : 1935 Requested By: GONZALO GORMAN1 Order Number: [id number] Reading MD: Quincy Fuentes Measurements Intervals [place] Rate: 81 P: 35 AR: 207 QRS: 37 QRSD: 98 T: 30 QT: 403 QTc: 468 Interpretive Statements SINUS RHYTHM NONSPECIFIC ST & T-WAVE ABNORMALITY SINCE 7:[address] ELEVATIONS ARE NOW MINIMAL Electronically Signed On 03-27-2017 12:43:15 EDT by Quincy Fuentes
[2017-03-27] MEDS: traZODone 50 MG TAB PO SCH (20:16)
[2017-03-27] MEDS: TAMSULOSIN 0.4 MG CAP PO SCH (20:16)
[2017-03-27] MEDS: ASPIRIN 81 MG ENTERIC TAB PO SCH (20:16)
[2017-03-27] MEDS: SIMVASTATIN 40 MG TAB PO SCH (20:17)
[2017-03-28 04:00] VITALS: BP 136/63
[2017-03-28 05:32] LABS: MEAN CORPUSCULAR HEMOGLOBIN 32.4 pg (27.0-33.0); MEAN CORPUSCULAR HGB CONC 34.7 g/dl (32.0-36.5); MEAN CORPUSCULAR VOLUME 93.4 fl (80.0-96.0); RED CELL DISTRIBUTION WIDTH 13.2 % (11.5-14.5); WHITE BLOOD COUNT 9.8 K/mm3 (4.0-10.0)
[2017-03-28] MEDS: PIPERACILLIN/TAZOBACTAM SOD 4.5 GM in D5W MINI-BAG PLUS 100 ML IV SCH ×4 (05:49→23:41)
[2017-03-28 05:57] LABS: ALBUMIN 1.9 GM/DL (3.2-5.2); ALBUMIN/GLOBULIN RATIO 0.56 (1.00-1.93); ALKALINE PHOSPHATASE 142 U/L (45-117); ALT/SGPT 95 U/L (12-78); ANION GAP 12 MEQ/L (8-16); AST/SGOT 50 U/L (15-37); BILIRUBIN,TOTAL 0.6 MG/DL (0.2-1.0); BLOOD UREA NITROGEN 12 MG/DL (7-18); CALCIUM LEVEL 7.5 MG/DL (8.8-10.2); CARBON DIOXIDE LEVEL 22 MEQ/L (21-32); CHLORIDE LEVEL 98 MEQ/L (98-107); CREATININE FOR GFR 0.95 MG/DL (0.70-1.30); GLOMERULAR FILTRATION RATE > 60.0 (>35); GLUCOSE, FASTING 115 MG/DL (83-110); POTASSIUM SERUM 3.4 MEQ/L (3.5-5.1); SODIUM LEVEL 132 MEQ/L (136-145); TOTAL PROTEIN 5.3 GM/DL (6.4-8.2)
[2017-03-28] MEDS: VANCOMYCIN HCL 1,000 MG, VIAL MATE ADAPTER 1 EACH in D5W 250 ML IV SCH ×2 (06:46→18:38)
[2017-03-28 08:00] VITALS: BP 135/65
[2017-03-28] MEDS: SENOKOT S TAB PO SCH ×2 (09:00→21:24)
[2017-03-28] MEDS: CLOPIDOGREL 75 MG TAB PO SCH (09:11)
[2017-03-28] MEDS: METOPROLOL TART 50 MG TAB PO SCH ×3 (09:12→21:24)
[2017-03-28 10:40] LABS: FOLATE 15.3 NG/ML (>5.4)
[2017-03-28] MEDS ORDERED: D5W/0.9% SODIUM CHLORIDE 1,000 ML IV SCH (10:45)
[2017-03-28] MEDS ORDERED: POTASSIUM CHLORIDE 10 MEQ SR TABLET PO ONE (11:00)
--- NOTE | 2017-03-28 11:05 | IPN ---
DATE: 03/28/2017 Florentino is seen in the progressive care unit (PCU). He is feeling less short of breath, more energetic. He feels that his breathing is easier. He denies any chest pain. He has health care associated pneumonia, anemia, hypertension, and he is status post surgical aortic valve replacement with right coronary artery bypass. He has had some troponins that have been minimally elevated and showing no significant peak or signs to suggest non-ST segment elevation infarction. PHYSICAL EXAMINATION: 136/63. Pulse 73. Respiratory rate 18. 98% oxygen saturation. General Appearance: Resting comfortably in no distress. No jugular venous distention. Lungs: Decreased breath sounds both bases. Heart: Regular rhythm. No murmur. Abdomen: Soft. Nontender. Trace peripheral edema. LABS: Sodium 132, potassium 4.4, BUN 12, creatinine 0.9, glucose 115. Troponins are essentially flat. Hemoglobin 8.5, hematocrit 24.5 and platelets 269. IMPRESSION: 1. Health care associated pneumonia. Continue Zosyn and vancomycin. This is day #4 for his antibiotics. 2. Recent surgical aortic valve replacement/coronary artery bypass. Continue on Plavix and aspirin. No sign of infarction. 3. Hyperlipidemia. Continue simvastatin 40 mg daily. 4. Benign prostatic hypertrophy (BPH). Continue Flomax 0.4 mg at bedtime. 5. Anemia. Work up is in progress. It is probably postoperative. His hemoglobin back in December was 13.1 and now it is 8.8. It is stable. There is no sign of any ongoing loss. Received 1 unit of packed red blood cells yesterday. Continue to follow his hemoglobins on a daily basis. 6. Hypokalemia. Supplemental potassium has been ordered. The patient is interested in going to short term rehabilitation when it comes time to make discharge plans.
[2017-03-28 12:00] VITALS: BP 152/67
[2017-03-28] MEDS ORDERED: SLF 3 ML SYR IV PRN (13:45)
[2017-03-28] MEDS: SLF 3 ML SYR IV SCH ×2 (14:55→21:25)
[2017-03-28 16:00] VITALS: BP 147/70
[2017-03-28 20:00] VITALS: BP 134/63
[2017-03-28] MEDS: SIMVASTATIN 40 MG TAB PO SCH (21:24)
[2017-03-28] MEDS: TAMSULOSIN 0.4 MG CAP PO SCH (21:24)
[2017-03-28] MEDS: ASPIRIN 81 MG ENTERIC TAB PO SCH (21:24)
[2017-03-28] MEDS: traZODone 50 MG TAB PO SCH (21:24)
[2017-03-28 23:43] VITALS: BP 105/56
[2017-03-29] VITALS (7 sets, daily range): BP systolic 105–140; BP diastolic 55–68
[2017-03-29] MEDS: SLF 3 ML SYR IV SCH ×3 (04:12→20:14)
[2017-03-29] MEDS: PIPERACILLIN/TAZOBACTAM SOD 4.5 GM in D5W MINI-BAG PLUS 100 ML IV SCH ×4 (04:12→22:01)
[2017-03-29 06:54] LABS: MEAN CORPUSCULAR HGB CONC 35.3 g/dl (32.0-36.5); MEAN CORPUSCULAR VOLUME 93.5 fl (80.0-96.0); RED CELL DISTRIBUTION WIDTH 13.5 % (11.5-14.5); WHITE BLOOD COUNT 8.4 K/mm3 (4.0-10.0)
[2017-03-29 07:04] LABS: ALBUMIN 2.1 GM/DL (3.2-5.2); ALBUMIN/GLOBULIN RATIO 0.58 (1.00-1.93); ALKALINE PHOSPHATASE 145 U/L (45-117); ALT/SGPT 77 U/L (12-78); ANION GAP 7 MEQ/L (8-16); AST/SGOT 28 U/L (15-37); BILIRUBIN,TOTAL 0.7 MG/DL (0.2-1.0); BLOOD UREA NITROGEN 9 MG/DL (7-18); CALCIUM LEVEL 8.3 MG/DL (8.8-10.2); CARBON DIOXIDE LEVEL 26 MEQ/L (21-32); CHLORIDE LEVEL 99 MEQ/L (98-107); CREATININE FOR GFR 0.98 MG/DL (0.70-1.30); GLOMERULAR FILTRATION RATE > 60.0 (>35); GLUCOSE, FASTING 112 MG/DL (83-110); POTASSIUM SERUM 3.7 MEQ/L (3.5-5.1); SODIUM LEVEL 132 MEQ/L (136-145); TOTAL PROTEIN 5.7 GM/DL (6.4-8.2)
[2017-03-29] MEDS: VANCOMYCIN HCL 1,000 MG, VIAL MATE ADAPTER 1 EACH in D5W 250 ML IV SCH ×2 (07:34→18:25)
[2017-03-29] MEDS: SENOKOT S TAB PO SCH ×2 (09:00→19:53)
[2017-03-29] MEDS: METOPROLOL TART 50 MG TAB PO SCH ×3 (09:58→20:14)
[2017-03-29] MEDS: CLOPIDOGREL 75 MG TAB PO SCH (09:58)
--- NOTE | 2017-03-29 12:18 | IPNPDOC ---
Subjective Date Seen The patient was seen on 03/29/17. Subjective Chief Complaint/HPI The patient is a 81-year-old male admitted with a reason for visit of HCAP. Events since last encounter feeling better, feels stronger, no dizziness ofr light headedness, balance better, able to walk more, cough better, able to lie down flat now without coughing, no fever or chills, no chest pain or sob. Objective Physical Examination General Exam: Positive: Alert, Cooperative, No Acute Distress Eye Exam: Positive: Conjunctiva & lids normal ENT Exam: Positive: Atraumatic Neck Exam: Positive: Supple, Negative: JVD, thyromegaly, Lymphadenopathy Chest Exam: Positive: Clear to auscultation Heart Exam: Positive: Rate Normal, Regular Rhythm, Normal S1, Normal S2, Negative: Murmurs Abdomen Exam: Positive: Normal bowel sounds, Soft, Other (+tenderness to palpation of LUQ > RUQ as well as midepigastric area. ), Negative: Hepatospenomegaly Extremity Exam: Positive: Edema (+1 mlld pitting edema is pema), Normal pulses, Negative: Clubbing, Cyanosis Skin Exam: Positive: Nl turgor and temperature, Negative: Rash Neuro Exam: Positive: Normal Speech, Other (no focal neurologic deficits appreciated bilaterally) Psych Exam: Positive: Mental status NL, Mood NL, Memory Intact, Oriented x 3 Assessment /Plan Problems (1) HCAP (healthcare-associated pneumonia) Status: Acute Problem Text: continue vanco and zosyn (2) Anemia Status: Acute Problem Text: this is acute post surgical blood loss anemia Had recent cabg and avr on 03/15/17 received 1 unit of prbc. (3) S/P AVR Status: Chronic Problem Text: had surgery on 03/15/17 (4) S/P CABG (coronary artery bypass graft) Status: Chronic Problem Text: had surgery on 03/15/17 (5) CAD (coronary artery disease) Status: Chronic (6) BPH (benign prostatic hyperplasia) Status: Chronic (7) Hypercholesteremia Status: Chronic (8) Hypertension Status: Chronic Plan/VTE VTE Prophylaxis Ordered?: Yes (lovenox) VS, I&O, 24H, Fishbone Vital Signs/I&O Vital Signs Date Time Temp Pulse Resp B/P (MAP) Pulse Ox O2 Delivery O2 Flow Rate FiO2 03/29/17 09:58 74 140/63 03/29/17 07:36 Room Air 03/29/17 07:30 97.0 20 96 I&O- Last 24 Hours up to 6 AM 03/29/17 06:00 Intake Total 1640 ml Output Total 1275 ml Balance 365 ml Laboratory Data 24H LABS Laboratory Tests 2 03/29/17 06:29: Anion Gap 7L, Glomerular Filtration Rate > 60.0, Blood Urea Nitrogen 9, Creatinine 0.98, Sodium Level 132L, Potassium Level 3.7, Chloride Level 99, Carbon Dioxide Level 26, Calcium Level 8.3L, Aspartate Amino Transf (AST/SGOT) 28, Alanine Aminotransferase (ALT/SGPT) 77, Alkaline Phosphatase 145H, Total Bilirubin 0.7, Total Protein 5.7L, Albumin 2.1L, Magnesium Level 2.0, Albumin/ Globulin Ratio 0.58L CBC/BMP Laboratory Tests 03/29/17 06:29 Red Blood Count 2.63 L, Mean Corpuscular Volume 93.5, Mean Corpuscular Hemoglobin 33.0, Mean Corpuscular Hemoglobin Concent 35.3, Red Cell Distribution Width 13.5, Calcium Level 8.3 L, Aspartate Amino Transf (AST/SGOT) 28, Alanine Aminotransferase (ALT/SGPT) 77, Alkaline Phosphatase 145 H, Total Bilirubin 0.7, Total Protein 5.7 L, Albumin 2.1 L Microbiology Microbiology 03/25/17 Blood Culture - Preliminary, Resulted No Growth after 72 hours. All specime... 03/25/17 Blood Culture - Preliminary, Resulted No Growth after 72 hours. All specime... 03/27/17 Stool Occult Blood (JAC) - Final, Complete 03/27/17 Gram Stain - Final, Complete 03/27/17 Sputum Culture - Final, Complete Klebsiella Pneumoniae Yeast Like Organism 03/25/17 Influenza Virus Type A Antigen - Final, Complete 03/25/17 Influenza Virus Type B Antigen - Final, Complete 03/25/17 Urine Culture - Final, Complete MARQUES MENDOZA MD Mar 29, 2017 12:18
[2017-03-29] MEDS: SIMVASTATIN 40 MG TAB PO SCH (20:13)
[2017-03-29] MEDS: TAMSULOSIN 0.4 MG CAP PO SCH (20:13)
[2017-03-29] MEDS: traZODone 50 MG TAB PO SCH (20:13)
[2017-03-29] MEDS: ASPIRIN 81 MG ENTERIC TAB PO SCH (20:13)
[2017-03-30 04:36] VITALS: BP 115/58
[2017-03-30] MEDS: PIPERACILLIN/TAZOBACTAM SOD 4.5 GM in D5W MINI-BAG PLUS 100 ML IV SCH ×4 (05:41→22:56)
[2017-03-30] MEDS: SLF 3 ML SYR IV SCH ×3 (05:41→20:49)
[2017-03-30 05:42] LABS: MEAN CORPUSCULAR HEMOGLOBIN 32.7 pg (27.0-33.0); MEAN CORPUSCULAR HGB CONC 34.7 g/dl (32.0-36.5); MEAN CORPUSCULAR VOLUME 94.2 fl (80.0-96.0); RED CELL DISTRIBUTION WIDTH 13.7 % (11.5-14.5); WHITE BLOOD COUNT 8.1 K/mm3 (4.0-10.0)
[2017-03-30 06:11] LABS: ALBUMIN 2.1 GM/DL (3.2-5.2); ALBUMIN/GLOBULIN RATIO 0.58 (1.00-1.93); ALKALINE PHOSPHATASE 153 U/L (45-117); ALT/SGPT 66 U/L (12-78); ANION GAP 10 MEQ/L (8-16); AST/SGOT 29 U/L (15-37); BILIRUBIN,TOTAL 0.4 MG/DL (0.2-1.0); BLOOD UREA NITROGEN 8 MG/DL (7-18); CALCIUM LEVEL 8.4 MG/DL (8.8-10.2); CARBON DIOXIDE LEVEL 24 MEQ/L (21-32); CHLORIDE LEVEL 100 MEQ/L (98-107); CREATININE FOR GFR 1.05 MG/DL (0.70-1.30); GLOMERULAR FILTRATION RATE > 60.0 (>35); GLUCOSE, FASTING 115 MG/DL (83-110); MAGNESIUM LEVEL 2.1 MG/DL (1.8-2.4); POTASSIUM SERUM 3.7 MEQ/L (3.5-5.1); SODIUM LEVEL 134 MEQ/L (136-145); TOTAL PROTEIN 5.7 GM/DL (6.4-8.2)
[2017-03-30] MEDS: VANCOMYCIN HCL 1,000 MG, VIAL MATE ADAPTER 1 EACH in D5W 250 ML IV SCH (06:44)
[2017-03-30 08:00] VITALS: BP 133/63
[2017-03-30] MEDS: SENOKOT S TAB PO SCH ×3 (09:00→20:47)
[2017-03-30] MEDS: CLOPIDOGREL 75 MG TAB PO SCH (09:22)
[2017-03-30] MEDS: METOPROLOL TART 50 MG TAB PO SCH ×3 (09:23→20:46)
--- NOTE | 2017-03-30 10:58 | IPNPDOC ---
Subjective Date Seen The patient was seen on 03/30/17. Subjective Chief Complaint/HPI The patient is a 81-year-old male admitted with a reason for visit of HCAP. Events since last encounter feeling stronger, walking better, appetite improving , cough much improved , able to sleep flat, no dizziness or light headedness Objective Physical Examination General Exam: Positive: Alert, Cooperative, No Acute Distress Eye Exam: Positive: Conjunctiva & lids normal ENT Exam: Positive: Atraumatic Neck Exam: Positive: Supple Chest Exam: Positive: Clear to auscultation Heart Exam: Positive: Rate Normal, Regular Rhythm, Normal S1, Normal S2 Abdomen Exam: Positive: Normal bowel sounds, Soft, Other Extremity Exam: Positive: Edema, Normal pulses Skin Exam: Positive: Nl turgor and temperature Neuro Exam: Positive: Normal Speech, Other Psych Exam: Positive: Mental status NL, Mood NL, Memory Intact, Oriented x 3 Assessment /Plan Problems (1) HCAP (healthcare-associated pneumonia) Status: Acute Problem Text: continue zosyn (2) Anemia Status: Acute Problem Text: this is acute post surgical blood loss anemia Had recent cabg and avr on 03/15/17 received 1 unit of prbc. (3) S/P AVR Status: Chronic Problem Text: had surgery on 03/15/17 (4) S/P CABG (coronary artery bypass graft) Status: Chronic Problem Text: had surgery on 03/15/17 (5) CAD (coronary artery disease) Status: Chronic (6) BPH (benign prostatic hyperplasia) Status: Chronic (7) Hypercholesteremia Status: Chronic (8) Hypertension Status: Chronic Plan/VTE VTE Prophylaxis Ordered?: Yes (lovenox) VS, [facility] Signs/I&O Vital Signs Date Time Temp Pulse Resp B/P (MAP) Pulse Ox O2 Delivery O2 Flow Rate FiO2 03/30/17 09:23 75 133/63 03/30/17 08:20 Room Air 03/30/17 08:00 96.2 19 97 I&O- Last 24 Hours up to 6 AM 03/30/17 06:00 Intake Total 1460 ml Output Total 1100 ml Balance 360 ml Laboratory Data 24H LABS Laboratory Tests 2 03/30/17 05:30: Anion Gap 10, Glomerular Filtration Rate > 60.0, Blood Urea Nitrogen 8, Creatinine 1.05, Sodium Level 134L, Potassium Level 3.7, Chloride Level 100, Carbon Dioxide Level 24, Calcium Level 8.4L, Aspartate Amino Transf (AST/SGOT) 29, Alanine Aminotransferase (ALT/SGPT) 66, Alkaline Phosphatase 153H, Total Bilirubin 0.4, Total Protein 5.7L, Albumin 2.1L, Magnesium Level 2.1, Albumin/ Globulin Ratio 0.58L CBC/BMP Laboratory Tests 03/30/17 05:30 Red Blood Count 2.64 L, Mean Corpuscular Volume 94.2, Mean Corpuscular Hemoglobin 32.7, Mean Corpuscular Hemoglobin Concent 34.7, Red Cell Distribution Width 13.7, Calcium Level 8.4 L, Aspartate Amino Transf (AST/SGOT) 29, Alanine Aminotransferase (ALT/SGPT) 66, Alkaline Phosphatase 153 H, Total Bilirubin 0.4, Total Protein 5.7 L, Albumin 2.1 L Microbiology Microbiology 03/25/17 Blood Culture - Preliminary, Resulted No Growth after 72 hours. All specime... 03/25/17 Blood Culture - Preliminary, Resulted No Growth after 72 hours. All specime... 03/27/17 Stool Occult Blood (JAC) - Final, Complete 03/27/17 Gram Stain - Final, Complete 03/27/17 Sputum Culture - Final, Complete Klebsiella Pneumoniae Yeast Like Organism 03/25/17 Influenza Virus Type A Antigen - Final, Complete 03/25/17 Influenza Virus Type B Antigen - Final, Complete 03/25/17 Urine Culture - Final, Complete MARQUES MENDOZA MD Mar 30, 2017 10:58
[2017-03-30] MEDS ORDERED: FUROSEMIDE 20 MG/2 ML VIAL (J1940) IV ONE (11:00)
[2017-03-30 14:00] VITALS: BP 128/59
[2017-03-30] MEDS: TAMSULOSIN 0.4 MG CAP PO SCH (20:46)
[2017-03-30] MEDS: ASPIRIN 81 MG ENTERIC TAB PO SCH (20:46)
[2017-03-30] MEDS: PERCOCET 5MG/325MG TAB PO PRN (20:46)
[2017-03-30] MEDS: traZODone 50 MG TAB PO SCH (20:46)
[2017-03-30] MEDS: SIMVASTATIN 40 MG TAB PO SCH (20:47)
[2017-03-30 22:00] VITALS: BP 145/69
[2017-03-31] MEDS: PIPERACILLIN/TAZOBACTAM SOD 4.5 GM in D5W MINI-BAG PLUS 100 ML IV SCH ×2 (05:03→11:00)
[2017-03-31 06:00] VITALS: BP 119/56
[2017-03-31] MEDS: SLF 3 ML SYR IV SCH (06:41)
[2017-03-31] MEDS ORDERED: AUGM875T28 PO (07:55)
[2017-03-31] MEDS ORDERED: SENN1TAB2 PO (07:55)
[2017-03-31 08:35] VITALS: BP 119/56
[2017-03-31] MEDS: CLOPIDOGREL 75 MG TAB PO SCH (08:35)
[2017-03-31] MEDS: METOPROLOL TART 50 MG TAB PO SCH (08:35)
[2017-03-31] MEDS: SENOKOT S TAB PO SCH (08:35)
[2017-03-31] MEDS: PERCOCET 5MG/325MG TAB PO PRN (09:00)
--- NOTE | 2017-04-01 10:51 | DSES ---
DATE OF ADMISSION: 03/26/2017 DATE OF DISCHARGE: 03/31/2017 [facility] HOUSEFELLOW: At the [facility]. CARDIOTHORACIC SURGEON: At [place]. DISCHARGE DIAGNOSES: 1. Healthcare-associated pneumonia. 2. Postsurgical blood loss anemia. 3. Coronary artery disease with history of coronary artery bypass graft (CABG) on 03/15/2017. 4. Aortic stenosis with history of aortic valve replacement with bioprosthetic valve on 03/15/2017. 5. BPH. 6. Hypertension. 7. Hypercholesterolemia. DISCHARGE MEDICATIONS: - aspirin 81 mg daily - clopidogrel 75 mg daily - metoprolol 50 mg twice a day - simvastatin 40 mg at bedtime - tamsulosin 0.4 mg at bedtime - trazodone 50 mg at bedtime - Augmentin 875 mg one tablet by mouth twice a day for 2 days - Senna Plus one tablet by mouth twice a day HOSPITAL COURSE: This is an 81-year-old male who had undergone CABG, as well as aortic valve replacement done on 03/15/2017 at the [facility]. After about 2-3 days after surgery he had some stuffy nose. After he was discharged from the hospital after a 1-week stay, he was having cough and chest pain, which continued to get worse for 1 week with increasing sputum production and difficulty lying down flat in bed because of extreme coughing and also was having fevers at home, so came to the emergency room for evaluation. In the emergency department (ED), patient was found to have a pneumonia and was admitted for healthcare-associated pneumonia. Patient's EKG also showed some ST elevations, so patient's cardiothoracic surgeon, Dr. Bruce at [facility] was contacted and it was found that patient had undergone right coronary bypass surgery and aortic valve replacement for aortic stenosis and as per the cardiothoracic surgeon, ST elevation is often a common finding in the postoperative CABG patients and did not signify any acute myocardial infarction. Patient was treated with intravenous (IV) Zosyn and vancomycin. Subsequently, his sputum cultures grew Klebsiella pneumoniae and yeast like organisms, very few yeast so the vancomycin was discontinued and Zosyn was continued until he finished 5 days of IV Zosyn. Patient is going to be discharged home with oral Augmentin. Patient was seen by physical therapy in the hospital and he improved significantly in his functional status and he was cleared by physical therapy to be discharged home with services and suggested home physical therapy (PT) for balance, gait training and gait stability. At present patient's vital signs are stable. Patient does not offer any complaints and he is functionally close to his baseline and patient is going to be discharged home. PHYSICAL EXAMINATION: VITAL SIGNS: Temperature 97.1, pulse 68, respiratory rate 18, blood pressure 119/56, pulse oximetry 97% in room air. GENERAL: Patient awake, alert, oriented times three sitting up in bed in no acute distress. HEENT: Normocephalic, atraumatic. Moist mucous membranes. Anicteric eyes. CHEST: Clear to auscultation. CARDIOVASCULAR: S1, S2 regular. No rub, murmur or gallop. ABDOMEN: Soft, nontender, bowel sounds present. EXTREMITIES: 1+ edema. LABORATORY DATA: WBC 8.1, hemoglobin 8.6, platelets 325. Sodium 134, potassium 3.7, chloride 100, bicarbonate 24, BUN 8, creatinine 1, glucose 115, calcium 8.4. Iron level 9, transferrin saturation 5.7, ferritin 395. Vitamin B12 505, folate 15.3. TSH 0.267. DISPOSITION: Patient is discharged home in a stable condition. DISCHARGE INSTRUCTIONS: Patient to followup with his primary medical doctor (PMD) at the [place] in [place] within 1 week. Patient to followup with his caterers helper at [facility] as per his outpatient appointment.
[2017-05-30] MEDS ORDERED: ATOR40TA75 PO (04:40)
[2017-05-30] MEDS ORDERED: METH10TA PO (04:40)
== END 2017-03-31 11:31 | disposition home or self-care (01) | DRG 194 ==
LOC: M ED 12:26 → M PCU 03-26 17:00 → M MS5PR 03-30 14:00
PROVIDERS: ADMIT Internal Medicine; ATTEND Hospitalist
PROC: 30233N1 Transfusion of Nonautologous Red Blood Cells into Peripheral Vein, Percutaneous Approach (ICD-10-PCS; principal; 2017-03-27)
DX: J18.9 Pneumonia, unspecified organism (principal); E87.1 Hypo-osmolality and hyponatremia; D62 Acute posthemorrhagic anemia; I25.10 Atherosclerotic heart disease of native coronary artery without angina pectoris; N40.0 Benign prostatic hyperplasia without lower urinary tract symptoms; I10 Essential (primary) hypertension; E78.5 Hyperlipidemia, unspecified; E87.6 Hypokalemia; E78.00 Pure hypercholesterolemia, unspecified; Z79.82 Long term (current) use of aspirin; Z79.899 Other long term (current) drug therapy; Z95.2 Presence of prosthetic heart valve; B96.1 Klebsiella pneumoniae [K. pneumoniae] as the cause of diseases classified elsewhere; Z87.891 Personal history of nicotine dependence; Y95 Nosocomial condition; Z95.5 Presence of coronary angioplasty implant and graft

== ENCOUNTER 2017-04-07 13:13 | Emergency (ER) | payer OTHER, MEDICARE ==
[~2017-04-07] VITALS: Ht 175.3 cm; Wt 75.1 kg
[~2017-04-07 13:13] MED LIST changes: +ASPI81TA85 PO; +AUGM875T28 PO; +FLOM5CAP PO; +METO50TA7 PO; +PLAV1TAB2 PO; +SENN1TAB2 PO; +SIMV40TA2 PO; +TRAZ50TA11 PO
[2017-04-07] MEDS ORDERED: CEPH250T PO (15:03)
[2017-04-07 15:15] VITALS: BP 149/70
[2017-05-30] MEDS ORDERED: ATOR40TA75 PO (04:40)
[2017-05-30] MEDS ORDERED: METH10TA PO (04:40)
== END 2017-04-07 15:34 | disposition home or self-care (01) ==
LOC: M ED 13:13
DX: L03.313 Cellulitis of chest wall (principal); Z95.1 Presence of aortocoronary bypass graft

== ENCOUNTER 2017-07-22 15:06 | Emergency (ER) | payer MEDICARE, OTHER ==
[~2017-07-22] VITALS: Ht 172.7 cm; Wt 72.7 kg
[~2017-07-22 15:06] MED LIST changes: +ATOR40TA75 PO; +CEPH250T PO; +METH10TA PO
[2017-07-22 16:16] LABS: BASO # 0.1 10^3/uL (0.0-0.2); BASO % 0.7 % (0.0-1.0); EOS # 0.3 10^3/uL (0.0-0.50); EOS % 3.6 % (0.0-3.0); IMMATURE GRANULOCYTE % 0.3 % (0-0); LYMPH # 1.4 10^3/uL (1.5-4.5); LYMPH % 15.9 % (24.0-44.0); MEAN CORPUSCULAR HEMOGLOBIN 28.3 pg (27.0-33.0); MEAN CORPUSCULAR HGB CONC 33.4 g/dl (32.0-36.5); MEAN CORPUSCULAR VOLUME 84.8 fl (80.0-96.0); MONO # 0.9 10^3/uL (0.0-0.8); MONO % 10.7 % (0.0-5.0); NEUTROPHILS # 5.9 10^3/uL (1.8-7.7); NEUTROPHILS % 68.8 % (36.0-66.0); PLATELET COUNT, AUTOMATED 259 10^3/uL (150-450); RED CELL DISTRIBUTION WIDTH 15.6 % (11.5-14.5); WHITE BLOOD COUNT 8.6 10^3/uL (4.0-10.0)
[2017-07-22 16:37] LABS: ALBUMIN 3.8 GM/DL (3.2-5.2); ALBUMIN/GLOBULIN RATIO 1.03 (1.00-1.93); ALKALINE PHOSPHATASE 166 U/L (45-117); ALT/SGPT 39 U/L (12-78); ANION GAP 6 MEQ/L (8-16); AST/SGOT 31 U/L (7-37); BILIRUBIN,TOTAL 0.6 MG/DL (0.2-1.0); BLOOD UREA NITROGEN 20 MG/DL (7-18); CALCIUM LEVEL 9.1 MG/DL (8.8-10.2); CARBON DIOXIDE LEVEL 30 MEQ/L (21-32); CHLORIDE LEVEL 103 MEQ/L (98-107); CREATININE FOR GFR 0.78 MG/DL (0.70-1.30); GLOMERULAR FILTRATION RATE > 60.0 (>35); GLUCOSE, FASTING 103 MG/DL (83-110); SODIUM LEVEL 139 MEQ/L (136-145); TOTAL PROTEIN 7.5 GM/DL (6.4-8.2)
[2017-07-22 18:05] VITALS: BP 171/79
--- NOTE | 2017-07-22 18:15 | ECGEPIP ---
Stationary ECG Study [facility] - ED Test Date: 2017-07-22 Pat Name: GEOVANNY EISENBERG Department: Room: - Gender: M Kidney Trimmer: ct : 1935 Requested By: KATHERYN Jessica Order Number: [id number] Reading MD: Jillian Luis Measurements Intervals [place] Rate: 84 P: 47 MI: 208 QRS: 26 QRSD: 93 T: 1 QT: 372 QTc: 440 Interpretive Statements SINUS RHYTHM POSSIBLE LEFT ATRIAL ENLARGEMENT NONSPECIFIC T-WAVE ABNORMALITY DECREASED RATE 05/30/17 Electronically Signed On 07-22-2017 18:15:22 EST by Jillian Luis
--- NOTE | 2017-07-22 18:29 | REP ---
CT brain without contrast: History: Headache and dizziness. Comparison head CT study December 19, 2016. CT findings: Bone window settings demonstrate an intact bony calvarium. Vascular calcification is noted in the distal vertebral and distal carotid arteries bilaterally, unchanged. The visualized paranasal sinuses are clear. There is mild diffuse cerebral atrophy as before. There is no evidence of intracranial hemorrhage. Mild small vessel changes are again noted in the periventricular white matter. No infarct, mass, or midline shift is seen. Impression: Vascular calcification, mild diffuse atrophy, and small vessel changes. No acute intracranial abnormality. No change from comparison study December 19, 2016. Signed by Martínez Pierce MD 07/23/2017 07:18 P
== END 2017-07-22 18:06 | disposition short-term general hospital (02) ==
LOC: M ED 15:06
DX: H81.10 Benign paroxysmal vertigo, unspecified ear (principal); I25.10 Atherosclerotic heart disease of native coronary artery without angina pectoris; F41.9 Anxiety disorder, unspecified; R41.3 Other amnesia; Z79.899 Other long term (current) drug therapy; Z79.82 Long term (current) use of aspirin; F17.210 Nicotine dependence, cigarettes, uncomplicated

== ENCOUNTER 2018-02-17 17:01 | Emergency (ER) | payer OTHER, MEDICARE ==
[2018-02-17] MEDS: LABETALOL HCL 100 MG/20 ML VIAL IV ×2 (19:25→20:04)
[2018-02-17 19:37] LABS: BASO # 0.1 10^3/uL (0.0-0.2); BASO % 0.7 % (0.0-1.0); EOS # 0.3 10^3/uL (0.0-0.50); EOS % 3.5 % (0.0-3.0); HEMATOCRIT 40.5 % (42.0-52.0); HEMOGLOBIN 14.1 g/dl (13.5-17.5); IMMATURE GRANULOCYTE % 0.4 % (0-3.0); LYMPH # 1.5 10^3/uL (1.5-4.5); LYMPH % 16.3 % (24.0-44.0); MEAN CORPUSCULAR HEMOGLOBIN 30.7 pg (27.0-33.0); MEAN CORPUSCULAR HGB CONC 34.8 g/dl (32.0-36.5); MONO # 0.7 10^3/uL (0.0-0.8); MONO % 7.7 % (0.0-5.0); NEUTROPHILS # 6.4 10^3/uL (1.8-7.7); NEUTROPHILS % 71.4 % (36.0-66.0); PLATELET COUNT, AUTOMATED 214 10^3/uL (150-450); RED CELL DISTRIBUTION WIDTH 14.2 % (11.5-14.5); WHITE BLOOD COUNT 8.9 10^3/uL (4.0-10.0)
[2018-02-17 20:07] LABS: ANION GAP 9 MEQ/L (8-16); BLOOD UREA NITROGEN 13 MG/DL (7-18); CALCIUM LEVEL 8.7 MG/DL (8.8-10.2); CARBON DIOXIDE LEVEL 26 MEQ/L (21-32); CHLORIDE LEVEL 102 MEQ/L (98-107); CPK CREATINE PHOSPHOKINASE 170 U/L (39-308); FREE THYROXINE INDEX 2.7 % (1.4-3.8); GLOMERULAR FILTRATION RATE > 60.0 (>35); GLUCOSE, FASTING 104 MG/DL (70-100); MAGNESIUM LEVEL 2.1 MG/DL (1.8-2.4); POTASSIUM SERUM 3.5 MEQ/L (3.5-5.1); SODIUM LEVEL 137 MEQ/L (136-145); T UPTAKE 35 % (33-40); THYROXINE (T4) 7.8 UG/DL (4.5-12.0); TROPONIN I < 0.02 NG/ML (< 0.10)
[2018-02-17 20:13] LABS: CK-MB VALUE MASS 2.1 NG/ML (<3.6); MB/CK RELATIVE INDEX 1.23 (< OR =4)
[2018-02-17] MEDS ORDERED: hydrALAZINE INJ 20 MG/ML VIAL IV (21:15)
[2018-02-17] MEDS: LISINOPRIL 5 MG TAB PO (21:30)
== END 2018-02-17 21:46 | disposition home or self-care (01) ==
LOC: M ED 17:01
DX: I10 Essential (primary) hypertension (principal); I25.10 Atherosclerotic heart disease of native coronary artery without angina pectoris; N40.0 Benign prostatic hyperplasia without lower urinary tract symptoms; E78.5 Hyperlipidemia, unspecified; Z95.1 Presence of aortocoronary bypass graft; Z79.899 Other long term (current) drug therapy; Z79.82 Long term (current) use of aspirin
CPT/HCPCS: 82550

== ENCOUNTER 2018-08-24 07:15 | Emergency (ER) | payer OTHER, MEDICARE ==
[~2018-08-24] VITALS: Ht 175.3 cm; Wt 81.8 kg
[~2018-08-24 07:15] MED LIST changes: +FLOM0.4C39 PO; -FLOM5CAP PO; +LISI-542 PO; +SERT25TA PO; +TRAZ-160 PO; -TRAZ50TA11 PO
[2018-08-24] MEDS ORDERED: VITA-176 PO (07:34)
[2018-08-24] MEDS ORDERED: AMLO25TA PO (07:34)
[2018-08-24 07:50] LABS: BASO # 0.1 10^3/uL (0.0-0.2); BASO % 0.5 % (0.0-1.0); EOS # 0.8 10^3/uL (0.0-0.50); EOS % 8.7 % (0.0-3.0); HEMATOCRIT 42.4 % (42.0-52.0); HEMOGLOBIN 14.7 g/dl (13.5-17.5); LYMPH # 1.5 10^3/uL (1.5-4.5); LYMPH % 16.7 % (24.0-44.0); MEAN CORPUSCULAR HEMOGLOBIN 31.9 pg (27.0-33.0); MEAN CORPUSCULAR HGB CONC 34.7 g/dl (32.0-36.5); MONO # 0.8 10^3/uL (0.0-0.8); MONO % 8.4 % (0.0-5.0); NEUTROPHILS % 65.5 % (36.0-66.0); PLATELET COUNT, AUTOMATED 199 10^3/uL (150-450); RED BLOOD COUNT 4.61 10^6/uL (4.30-6.10); WHITE BLOOD COUNT 9.1 10^3/uL (4.0-10.0)
[2018-08-24] MEDS: METOPROLOL 5 MG/5 ML VIAL IV SCH ×3 (07:59→08:19)
--- NOTE | 2018-08-24 08:03 | REP ---
PORTABLE CHEST X-RAY: Single view. HISTORY: Chest pain. COMPARISON STUDY: March 25, 2017. FINDINGS: The patient is status post prior median sternotomy. EKG electrodes are seen. Heart is not enlarged. Pulmonary vasculature is not increased. There is some mild linear fibrosis in the left perihilar region unchanged. Interstitial markings are somewhat prominent diffusely. No focal infiltrate is seen. No evidence of pleural effusion. Mitral annular calcification is again noted. IMPRESSION: No focal infiltrate. Slightly prominent pulmonary interstitial markings as before. Electronically Signed by Martínez Pierce MD 08/24/2018 08:57 A
[2018-08-24 08:10] LABS: INR 0.96; PROTHROMBIN TIME 12.9 SECONDS (12.1-14.4)
--- NOTE | 2018-08-24 08:16 | ECGEPIP ---
Stationary ECG Study [facility] - ED Test Date: 2018-08-24 Pat Name: GEOVANNY EISENBERG Department: Room: - Gender: M Substation Operator: tk : 1935 Requested By: Jillian Luis Order Number: [id number] Reading MD: Tate Sutherland Measurements Intervals [place] Rate: 129 P: [place]: 0 QRS: 19 QRSD: 98 T: 211 QT: 307 QTc: 450 Interpretive Statements SINUS TACHYCARDIA WITH SHORT [place] INTERVAL NONSPECIFIC ST & T-WAVE ABNORMALITY RATE CHANGE COMPARED TO 07/22/17 Electronically Signed On 08-24-2018 8:16:33 EST by Tate Sutherland
[2018-08-24 08:19] VITALS: BP 136/92
[2018-08-24 08:30] LABS: ALBUMIN 4.1 GM/DL (3.2-5.2); ALT/SGPT 26 U/L (12-78); BILIRUBIN,DIRECT 0.2 MG/DL (0.0-0.2); BILIRUBIN,TOTAL 0.9 MG/DL (0.2-1.0); BLOOD UREA NITROGEN 19 MG/DL (7-18); CALCIUM LEVEL 8.8 MG/DL (8.8-10.2); CARBON DIOXIDE LEVEL 24 MEQ/L (21-32); CHLORIDE LEVEL 105 MEQ/L (98-107); CPK CREATINE PHOSPHOKINASE 173 U/L (39-308); GLOMERULAR FILTRATION RATE > 60.0 (>35); GLUCOSE, FASTING 117 MG/DL (70-100); MB/CK RELATIVE INDEX 1.16 (< OR =4); NT-PRO BNP 452 PG/ML (<450); POTASSIUM SERUM 3.4 MEQ/L (3.5-5.1); SODIUM LEVEL 138 MEQ/L (136-145); TOTAL PROTEIN 7.7 GM/DL (6.4-8.2); TROPONIN I < 0.02 NG/ML (< 0.10)
[2018-08-24] MEDS ORDERED: POTASSIUM CHLORIDE 10 MEQ SR TABLET PO ONE (09:00)
[2018-08-24 09:25] LABS: FREE THYROXINE INDEX 2.3 % (1.4-3.8); T UPTAKE 30 % (33-40); THYROXINE (T4) 7.5 UG/DL (4.5-12.0)
[2018-08-24] MEDS ORDERED: ELIQ5TAB PO (10:05)
[2018-08-24 11:16] LABS: MB/CK RELATIVE INDEX 1.33 (< OR =4); TROPONIN I 0.02 NG/ML (< 0.10)
[2018-08-24 11:23] VITALS: BP 131/62
--- NOTE | 2018-08-24 18:53 | ECGEPIP ---
Stationary ECG Study [facility] - ED Test Date: 2018-08-24 Pat Name: GEOVANNY EISENBERG Department: Room: - Gender: M Tactical/Mobile Watch Officer: tk : 1935 Requested By: Jillian Luis Order Number: [id number] Reading MD: Tate Sutherland Measurements Intervals [place] Rate: 68 P: 32 HI: 242 QRS: 12 QRSD: 102 T: 4 QT: 414 QTc: 442 Interpretive Statements SINUS RHYTHM WITH FIRST DEGREE AV BLOCK TALL T-WAVES, SUGGESTS HYPERKALEMIA RHYTHM/RATE CHANGE COMPARED TO PRIOR ON SAME DATE Electronically Signed On 08-24-2018 18:53:20 EST by Tate Sutherland
--- NOTE | 2018-08-24 18:55 | ECGEPIP ---
Stationary ECG Study [facility] - ED Test Date: 2018-08-24 Pat Name: GEOVANNY EISENBERG Department: Room: - Gender: M Quality Assurance Analyst: : 1935 Requested By: Jillian Luis Order Number: [id number] Reading MD: Tate Sutherland Measurements Intervals [place] Rate: 70 P: 30 [place]: 249 QRS: 13 QRSD: 96 T: -6 QT: 404 QTc: 436 Interpretive Statements SINUS RHYTHM WITH FIRST DEGREE AV BLOCK TALL T-WAVES, SUGGESTS HYPERKALEMIA SIMILAR TO PRIOR ON SAME DATE Electronically Signed On 08-24-2018 18:55:07 EST by Tate Sutherland
== END 2018-08-24 11:33 | disposition home or self-care (01) ==
LOC: M ED 07:15
DX: I48.92 Unspecified atrial flutter (principal); I44.0 Atrioventricular block, first degree; R00.0 Tachycardia, unspecified; I10 Essential (primary) hypertension; E78.5 Hyperlipidemia, unspecified; Z95.2 Presence of prosthetic heart valve; I25.810 Atherosclerosis of coronary artery bypass graft(s) without angina pectoris; Z87.891 Personal history of nicotine dependence; F10.21 Alcohol dependence, in remission; Z79.01 Long term (current) use of anticoagulants; Z79.82 Long term (current) use of aspirin; Z79.899 Other long term (current) drug therapy

== ENCOUNTER 2019-05-04 10:19 | Inpatient (IN) | payer OTHER, MEDICARE ==
[~2019-05-04] VITALS: Ht 175.3 cm; Wt 82.5 kg
[~2019-05-04 10:19] MED LIST changes: +AMLO25TA PO; +ELIQ5TAB PO; -SENN1TAB2 PO; +SENN1TAB40 PO; -SERT25TA PO; +SERT25TA85 PO; -TRAZ-160 PO; +TRAZ-252 PO; +VITA-176 PO
[2019-05-04] MEDS ORDERED: METO200T28 PO (10:29)
[2019-05-04 11:33] LABS: BASO # 0.1 10^3/uL (0.0-0.2); BASO % 0.5 % (0.0-1.0); EOS # 0.3 10^3/uL (0.0-0.5); EOS % 3.1 % (0.0-3.0); HEMATOCRIT 38.3 % (42.0-52.0); HEMOGLOBIN 13.9 g/dl (13.5-17.5); LYMPH # 1.3 10^3/uL (1.5-5.0); LYMPH % 12.5 % (24.0-44.0); MEAN CORPUSCULAR HEMOGLOBIN 33.7 pg (27.0-33.0); MEAN CORPUSCULAR HGB CONC 36.3 g/dl (32.0-36.5); MEAN CORPUSCULAR VOLUME 92.7 fl (80.0-96.0); MONO % 9.6 % (0.0-5.0); NEUTROPHILS # 7.5 10^3/uL (1.5-8.5); NEUTROPHILS % 73.9 % (36.0-66.0); PLATELET COUNT, AUTOMATED 216 10^3/uL (150-450); RED BLOOD COUNT 4.13 10^6/uL (4.30-6.10); WHITE BLOOD COUNT 10.1 10^3/uL (4.0-10.0)
[2019-05-04] MEDS ORDERED: IPRATROPIUM 0.5MG/ALBUTEROL 2.5MG INH SOL UD 3ML (DUONEB)(J7620) NEB ONE (11:45)
[2019-05-04 11:58] LABS: BLOOD UREA NITROGEN 26 MG/DL (7-18); CARBON DIOXIDE LEVEL 23 MEQ/L (21-32); CHLORIDE LEVEL 98 MEQ/L (98-107); CREATININE FOR GFR 1.16 MG/DL (0.70-1.30); GLOMERULAR FILTRATION RATE > 60.0 (>35); GLUCOSE, FASTING 108 MG/DL (70-100); POTASSIUM SERUM 3.6 MEQ/L (3.5-5.1); SODIUM LEVEL 131 MEQ/L (136-145)
[2019-05-04] MEDS ORDERED: methylPREDNISolone INJ 125 MG/2 ML VIAL (J2930) IV ONE (12:15)
[2019-05-04] MEDS ORDERED: AZITHROMYCIN INJ 500 MG, VIAL MATE ADAPTER 1 EACH in D5W 250 ML IV ONE (12:15)
[2019-05-04] MEDS ORDERED: cefTRIAXone SOD 1 GM in D5W MINI-BAG PLUS 50 ML IV ONE (12:15)
[2019-05-04 12:34] LABS: CK-MB VALUE MASS 10.6 NG/ML (<3.6); CPK CREATINE PHOSPHOKINASE 1476 U/L (39-308); MB/CK RELATIVE INDEX 0.72 (< OR =4); NT-PRO BNP 370 PG/ML (<450); TROPONIN I < 0.02 NG/ML (< 0.10)
[2019-05-04] MEDS ORDERED: IPRATROPIUM 0.5MG/ALBUTEROL 2.5MG INH SOL UD 3ML (DUONEB)(J7620) NEB PRN (12:45)
[2019-05-04] MEDS ORDERED: D-10TAB3 PO (12:51)
[2019-05-04] MEDS ORDERED: AMLO10TA5 PO (12:51)
[2019-05-04] MEDS ORDERED: PHARMACY COMMENT (12:52)
[2019-05-04] MEDS ORDERED: SERT-141 PO (12:56)
[2019-05-04 13:39] LABS: INFLUENZA A AMPLIFICATION NEGATIVE (NEGATIVE); INFLUENZA B AMPLIFICATION NEGATIVE (NEGATIVE)
[2019-05-04 14:00] VITALS: BP 139/76
[2019-05-04] MEDS: IPRATROPIUM 0.5MG/ALBUTEROL 2.5MG INH SOL UD 3ML (DUONEB)(J7620) NEB SCH ×2 (14:00→18:29)
[2019-05-04 14:11] LABS: FREE T4 0.56 NG/DL (0.76-1.46)
[2019-05-04 14:25] VITALS: BP 139/76
--- NOTE | 2019-05-04 15:08 | HPE ---
DATE OF ADMISSION: 05/04/2019 PRINCIPAL DIAGNOSIS: Interstitial pneumonia. HISTORY: Florentino Jordan is an 83-year-old patient of the [facility] who reportedly has interstitial pneumonia (work stations in the hospitalist office will not access the outside film interpretations but per emergency room staff he has bilateral interstitial infiltrates). He has been having cough, congestion, and shortness of breath with exertion, low grade fever for a few days. He has a past medical history of aortic stenosis, status post aortic valve replacement, coronary artery bypass graft (CABG) times one with what sounds like a bioprosthetic valve 03/2017 (patient not on warfarin so I assume bioprosthetic). He has hypertension, hyperlipidemia, BPH. He had an elevated thyroid-stimulating hormone (TSH) when he was here in the emergency room in August, but he did not need any thyroid replacement hormone at the time. He does have history of depression as he is on sertraline and hyperlipidemia for which he takes atorvastatin. He reportedly had atrial flutter with rapid ventricular response in the past as well. He was admitted here in 2016 with hospital-associated pneumonia after bypass/aortic valve replacement. SOCIAL HISTORY: Nonsmoker. Denies any alcohol. MEDICATIONS: - amlodipine 10 mg daily - atorvastatin 40 mg daily - vitamin D 2000 units daily - Toprol XL 100 mg daily - sertraline 50 mg daily - tamsulosin 0.4 mg nightly - trazodone 25 mg nightly ALLERGIES: NONE KNOWN. REVIEW OF SYSTEMS: No hemoptysis, unexplained weight loss, exertional chest pain or palpitations, epistaxis, rectal bleeding, or urinary bleeding. PHYSICAL EXAM: 159/69, pulse 73, respiratory rate 18, 91% oxygen saturation on room air. General appearance: He is alert, conversant, in no distress. Pupils equal and reactive to light. Tympanic membranes (TMS) normal. Oropharynx benign. Neck: No masses. Lungs: The lungs have a few rhonchi at the bases and a few crackles at the bases. Heart: Regular rate and rhythm. 1/6 systolic ejection murmur. Abdomen: Soft, nontender. No masses. Trace peripheral edema. LABS: Sodium 131, potassium 3.6, BUN 26, creatinine 1.1, glucose 108. White count 10.1, hemoglobin 13.9, platelets 216. CK is 1470. Troponins are undetectable. BMP is normal. Flu screen is negative. Chest x-ray per emergency room staff shows interstitial infiltrates bilaterally. IMPRESSION: 1. Interstitial pneumonia. The patient will be admitted to a medical bed, started on Rocephin 2 grams IV daily and doxycycline 100 mg twice a day. Respiratory panel has been ordered. I will also order a uterine legionella antigen and a urine streptococcus pneumoniae antigen ( results typically come back after the patient has been discharged home). Empiric steroid therapy with Solu-Medrol 4 mg IV daily for 5 days ordered. Nebulizer bronchodilator is ordered. 2. Hypertensive heart disease. 10 mg daily with Toprol 100 mg daily. 3. History of depression. Continue sertraline 50 mg daily and continue trazodone 25 mg nightly. 4. Hyperlipidemia. Continue Lipitor 40 mg daily. 5. BPH. Continue tamsulosin 0.4 mg daily. 6. History of hypothyroidism. In August of this year he had a TSH that was elevated at 16. He is not on any thyroid replacement. I will check a free T4 and a TSH, and if he is found to be frankly hypothyroid he would warrant treatment (subclinical hypothyroidism has been proved not to benefit from thyroid hormone replacement).
--- NOTE | 2019-05-04 15:21 | REP ---
Interpretation of the abdomen and of outside PA and lateral views of the chest performed 05/04/2019 at 09:39 a.m. at [facility]: Comparison is 08/24/2018. There is diffuse bilateral interstitial coarsening as an interval change compatible with interstitial infiltrates. There are no pleural effusions. There are no focal infiltrates. There are sternotomy wires, unchanged. Cardiac size is normal. The shanda, mediastinum, skeletal structures are unremarkable. Impression: Diffuse bilateral interstitial coarsening as an interval change compatible with interstitial infiltrates. Electronically Signed by Vernon Acosta MD 05/04/2019 03:12 P
[2019-05-04] MEDS: DOXYCYCLINE HYCLATE 100 MG in D5W MINI-BAG PLUS 100 ML IV SCH (15:36)
[2019-05-04 18:00] VITALS: BP 135/66
--- NOTE | 2019-05-04 20:08 | ECGEPIP ---
[facility] - ED Test Date: 2019-05-04 Pat Name: GEOVANNY EISENBERG Department: Room: - Gender: Male Abrasive Grinder: EDITH : 1935 Requested By: Elle Eddy Order Number: [id number] Reading MD: Tate Sutherland Measurements Intervals [place] Rate: 67 P: 51 NE: 238 QRS: 27 QRSD: 94 T: -15 QT: 433 QTc: 458 Interpretive Statements SINUS RHYTHM WITH FIRST DEGREE AV BLOCK NONSPECIFIC T-WAVE ABNORMALITY NONSPECIFIC T WAVE ABNORMALITIES Electronically Signed on 05-04-2019 20:08:07 EDT by Tate Sutherland
[2019-05-04] MEDS: traZODone 25MG PER 1/2 TABLET PO SCH (21:45)
[2019-05-04] MEDS: TAMSULOSIN 0.4 MG CAP PO SCH (21:45)
[2019-05-04] MEDS ORDERED: DOCUSATE SODIUM 100 MG CAP PO PRN (21:45)
[2019-05-04 22:00] VITALS: BP 152/74
[2019-05-05 02:00] VITALS: BP 155/77
[2019-05-05] MEDS: IPRATROPIUM 0.5MG/ALBUTEROL 2.5MG INH SOL UD 3ML (DUONEB)(J7620) NEB SCH ×4 (03:24→20:12)
[2019-05-05] MEDS: DOXYCYCLINE HYCLATE 100 MG in D5W MINI-BAG PLUS 100 ML IV SCH ×2 (03:41→14:36)
[2019-05-05] MEDS ORDERED: BENZONATATE 100 MG CAP PO ONE (05:15)
[2019-05-05 06:00] VITALS: BP 155/78
[2019-05-05 06:39] LABS: HEMATOCRIT 34.9 % (42.0-52.0); HEMOGLOBIN 12.5 g/dl (13.5-17.5); MEAN CORPUSCULAR HEMOGLOBIN 33.1 pg (27.0-33.0); MEAN CORPUSCULAR HGB CONC 35.8 g/dl (32.0-36.5); MEAN CORPUSCULAR VOLUME 92.3 fl (80.0-96.0); PLATELET COUNT, AUTOMATED 233 10^3/uL (150-450); RED BLOOD COUNT 3.78 10^6/uL (4.30-6.10); WHITE BLOOD COUNT 10.7 10^3/uL (4.0-10.0)
[2019-05-05 07:03] LABS: BLOOD UREA NITROGEN 33 MG/DL (7-18); CARBON DIOXIDE LEVEL 21 MEQ/L (21-32); CHLORIDE LEVEL 96 MEQ/L (98-107); GLOMERULAR FILTRATION RATE > 60.0 (>35); GLUCOSE, FASTING 171 MG/DL (70-100); POTASSIUM SERUM 3.5 MEQ/L (3.5-5.1); SODIUM LEVEL 127 MEQ/L (136-145)
[2019-05-05] MEDS ORDERED: ATORVASTATIN 20 MG TAB PO SCH (09:00)
[2019-05-05] MEDS: LEVOTHYROXINE 25MCG TABLET (0.025MG) PO SCH (09:01)
[2019-05-05] MEDS: SERTRALINE HCL 50 MG TAB PO SCH (09:01)
[2019-05-05] MEDS: amLODIPine 10 MG TAB PO SCH (09:02)
[2019-05-05] MEDS: methylPREDNISolone INJ 40 MG/1 ML VIAL (J2920) IV SCH (09:03)
[2019-05-05] MEDS: METOPROLOL SUCC (TopROL XL) 100MG *XL* TAB PO SCH (09:03)
--- NOTE | 2019-05-05 09:37 | REP ---
CT CHEST WITHOUT CONTRAST: 05/05/2019. Comparison: Chest x-ray 05/04/2019, outside study; CT 03/25/2017. Clinical history: Interstitial pneumonia. Findings: Standard noncontrast protocol was utilized. Coronal and sagittal reconstructions provided. There are patchy interstitial infiltrates in the superior lingular segment and in the left lower lobe. Minimal patchy infiltrate in the right base. No effusion. I see no dense consolidation with air bronchograms. The right upper lung zone show a couple of tiny patchy infiltrates superiorly. There is mild cylindrical bronchiectatic change. There is no calcified pleural plaque, pleural-based mass or pneumothorax. No effusion. Heart size unchanged. There is heavily calcified mitral annulus. Aortic valve replacement is noted. Atherosclerotic calcifications of the ascending arch and descending aorta noted without aneurysm. There is one right paratracheal node up to 10 mm in short axis, unchanged. Prevascular, AP window, precarinal, subcarinal and hilar nodes are subcentimeter. No axillary or supraclavicular masses or pathologic sized adenopathy. Tracheal airway intact. No gross cardiomegaly, pericardial effusion or thickening. Bone windows show sternotomy wires with the sternum and manubrium well-healed. Medial clavicles intact. Visualized portions of scapulae intact. Minor degenerative changes of the shoulders without destructive lesion of the glenohumeral joint or humeral heads and. Visualized ribs intact. The spine shows marginal osteophytes throughout without compression deformity or destructive lesion. The upper abdomen that portion of liver was unremarkable. Gallbladder and pancreas seen only in part were unremarkable. No splenomegaly or focal lesion. Adrenal glands are normal. Upper poles kidneys intact. No hiatal hernia. Impression: 1. There are patchy interstitial infiltrates, greatest in the left lower lobe but also some in the superior lingular segment, right base and minimally in the right upper lung zone. No effusion, dense consolidation with air bronchograms or parenchymal mass. 2. Mild cylindrical bronchiectatic changes noted. 3. Prior sternotomy and aortic valve replacement with heavily calcified mitral annulus. Sternotomy well-healed. Electronically Signed by King Archer MD 05/05/2019 07:31 P
[2019-05-05 10:00] VITALS: BP 133/66
[2019-05-05] MEDS: cefTRIAXone SOD 2 GM in D5W MINI-BAG PLUS 50 ML IV SCH (11:30)
[2019-05-05 11:31] LABS: OSMOLALITY URINE 684 MOSM/KG (500-800)
[2019-05-05 11:49] LABS: POTASSIUM RANDOM URINE 48.7 MEQ/L; SODIUM,RANDOM URINE < 10 MEQ/L
[2019-05-05] MEDS: BENZONATATE 100 MG CAP PO PRN ×2 (13:20→21:41)
[2019-05-05] MEDS ORDERED: NS 250 ML IV ONE (13:30)
[2019-05-05 13:36] LABS: URIC ACID 4.5 MG/DL (3.5-7.2)
--- NOTE | 2019-05-05 13:37 | IPNPDOC ---
Subjective Date Seen The patient was seen on 05/05/19. Subjective Chief Complaint/HPI complains of bouts of coughing no phlegm production. Also complains of aching in his thighs and weakness for several days. He was just not feeling right so went to see his PMD. Says was having low grade fevers at home also. No fever or chills here. No abdominal pain, nausea or vomiting. No diarrhea. Objective Physical Examination General Exam: Positive: Alert, Cooperative, No Acute Distress Eye Exam: Positive: PERRLA, Conjunctiva & lids normal, EOMI; Negative: Sclera icteric ENT Exam: Positive: Atraumatic, Mucous membr. moist/pink, Pharynx Normal Neck Exam: Positive: Supple; Negative: JVD, thyromegaly Chest Exam: Positive: Rales (on the left chest on the back base and mifddle. ); Negative: Rhonchi, Wheezing Heart Exam: Positive: Rate Normal, Regular Rhythm, Normal S1, Normal S2, Murmurs (systolic); Negative: Rubs Abdomen Exam: Positive: Normal bowel sounds, Soft; Negative: Tenderness, Hepatospenomegaly Extremity Exam: Negative: Clubbing, Cyanosis, Edema Skin Exam: Positive: Nl turgor and temperature; Negative: Rash, Breakdown Assessment /Plan Assessment 83 year old male with a past medical history of aortic stenosis, status post aortic valve replacement, coronary artery bypass graft (CABG) times one with what sounds like a bioprosthetic valve 03/2017, hypertension, hyperlipidemia, BPH, depression, atrial flutter and rvr ,elevated thyroid-stimulating hormone (TSH) when he was here in the emergency room in August, but he did not need any thyroid repla cement hormone at the time was sent in by his PM:D at the [facility] after a CXR for interstitial pneumonia. Patient was admitted for pneumonia. Pneumonia continue Rocephin and doxycycline continue solumedrol. has elevated CK will hold statin for now. susan urbina CT chest. Hypothyroidism TSh up to 65 will start on synthroid Hyponatremia seems hypovolemic; be due to poor intake will give NS bolus Hypertension with Hypertensive heart disease amlodipine and Toprol depression. Continue sertraline and trazodone Hyperlipidemia. Continue Lipitor BPH. Continue tamsulosin Plan/VTE VTE Prophylaxis Ordered?: Yes VS, I&O, 24H, Fishbone Vital Signs/I&O Vital Signs Date Time Temp Pulse Resp B/P (MAP) Pulse Ox O2 Delivery O2 Flow Rate FiO2 05/05/19 10:00 97.9 85 18 133/66 (88) 93 05/04/19 13:21 Room Air I&O- Last 24 Hours up to 6 AM 05/05/19 06:00 Intake Total 1575 ml Output Total 65 ml Balance 1510 ml Laboratory Data 24H LABS Laboratory Tests 2 05/05/19 05:38: Nucleated Red Blood Cells % (auto) 0.0, Anion Gap 10, Glomerular Filtration Rate > 60.0, Blood Urea Nitrogen 33H, Creatinine 1.20, Sodium Level 127L, Potassium Level 3.5, Chloride Level 96L, Carbon Dioxide Level 21, Calcium Level 9.0 05/05/19 07:53: Urine Random Osmolality 684, Urine Random Sodium < 10, Urine Random Potassium 48.7 05/05/19 08:09: Osmolality 274L CBC/BMP Laboratory Tests 05/05/19 05:38 Red Blood Count 3.78 L, Mean Corpuscular Volume 92.3, Mean Corpuscular Hemoglobin 33.1 H, Mean Corpuscular Hemoglobin Concent 35.8, Red Cell Distribution Width 13.0, Calcium Level 9.0 Microbiology Microbiology 05/04/19 Respiratory Virus Panel (PCR) ([facility]) - Final, Complete MARQUES MENDOZA MD May 05, 2019 13:37
[2019-05-05 14:00] VITALS: BP 136/71
[2019-05-05] MEDS: traZODone 25MG PER 1/2 TABLET PO SCH (21:41)
[2019-05-05] MEDS: TAMSULOSIN 0.4 MG CAP PO SCH (21:41)
[2019-05-05 22:00] VITALS: BP 142/75
[2019-05-06] MEDS: IPRATROPIUM 0.5MG/ALBUTEROL 2.5MG INH SOL UD 3ML (DUONEB)(J7620) NEB SCH ×4 (01:04→20:12)
[2019-05-06] MEDS: DOXYCYCLINE HYCLATE 100 MG in D5W MINI-BAG PLUS 100 ML IV SCH ×2 (03:57→15:11)
[2019-05-06] MEDS: LEVOTHYROXINE 25MCG TABLET (0.025MG) PO SCH (05:47)
[2019-05-06] MEDS: BENZONATATE 100 MG CAP PO PRN ×2 (05:48→21:35)
[2019-05-06 06:00] VITALS: BP 148/70
[2019-05-06 06:55] LABS: HEMATOCRIT 32.6 % (42.0-52.0); HEMOGLOBIN 11.7 g/dl (13.5-17.5); MEAN CORPUSCULAR HEMOGLOBIN 32.4 pg (27.0-33.0); MEAN CORPUSCULAR HGB CONC 35.9 g/dl (32.0-36.5); MEAN CORPUSCULAR VOLUME 90.3 fl (80.0-96.0); PLATELET COUNT, AUTOMATED 247 10^3/uL (150-450); RED BLOOD COUNT 3.61 10^6/uL (4.30-6.10); WHITE BLOOD COUNT 20.2 10^3/uL (4.0-10.0)
[2019-05-06 07:17] LABS: BLOOD UREA NITROGEN 29 MG/DL (7-18); CALCIUM LEVEL 8.6 MG/DL (8.8-10.2); CARBON DIOXIDE LEVEL 23 MEQ/L (21-32); CHLORIDE LEVEL 98 MEQ/L (98-107); CREATININE FOR GFR 1.09 MG/DL (0.70-1.30); GLOMERULAR FILTRATION RATE > 60.0 (>35); GLUCOSE, FASTING 125 MG/DL (70-100); POTASSIUM SERUM 3.7 MEQ/L (3.5-5.1); SODIUM LEVEL 130 MEQ/L (136-145)
[2019-05-06] MEDS ORDERED: NS 250 ML IV ONE (07:30)
[2019-05-06] MEDS: SERTRALINE HCL 50 MG TAB PO SCH (09:09)
[2019-05-06] MEDS: ENOXAPARIN 40 MG/0.4 ML SYRINGE (J1650) SC SCH (09:09)
[2019-05-06] MEDS: methylPREDNISolone INJ 40 MG/1 ML VIAL (J2920) IV SCH (09:10)
[2019-05-06] MEDS: amLODIPine 10 MG TAB PO SCH (09:10)
[2019-05-06] MEDS: METOPROLOL SUCC (TopROL XL) 100MG *XL* TAB PO SCH (09:10)
[2019-05-06] MEDS: cefTRIAXone SOD 2 GM in D5W MINI-BAG PLUS 50 ML IV SCH (12:11)
--- NOTE | 2019-05-06 12:19 | IPNPDOC ---
Subjective Date Seen The patient was seen on 05/06/19. Subjective Chief Complaint/HPI Cough is better. Also feeling stronger this am. No fever ro chills, no nausea, vomiting or diarrhea. Objective Physical Examination General Exam: Positive: Alert, Cooperative, No Acute Distress Eye Exam: Positive: PERRLA, Conjunctiva & lids normal, EOMI; Negative: Sclera icteric ENT Exam: Positive: Atraumatic, Mucous membr. moist/pink, Pharynx Normal Neck Exam: Positive: Supple; Negative: JVD, thyromegaly Chest Exam: Positive: Rales (on the left chest on the back base and mifddle. ); Negative: Rhonchi, Wheezing Heart Exam: Positive: Rate Normal, Regular Rhythm, Normal S1, Normal S2, Murmurs (systolic); Negative: Rubs Abdomen Exam: Positive: Normal bowel sounds, Soft; Negative: Tenderness, Hepatospenomegaly Extremity Exam: Negative: Clubbing, Cyanosis, Edema Skin Exam: Positive: Nl turgor and temperature; Negative: Rash, Breakdown Assessment /Plan Assessment 83 year old male with a past medical history of CAD and aortic stenosis, status post aortic valve replacement with bioprosthetic valve and coronary artery bypass graft (CABG) times one 03/15/2017, hypertension, hyperlipidemia, BPH, depression, atrial flutter and rvr ,elevated thyroid-stimulating hormone (TSH) when he was here in the emergency room in August, but he did not need any thyroid replacement hormone at the time was sent in by his PM:D at the [facility] after a CXR for interstitial pneumonia. Patient was admitted for pneumonia. Pneumonia continue Rocephin and doxycycline continue solumedrol. has elevated CK will hold statin for now. tessaljulisa urbina resp panel neg, urine legionella and strep pneumonie pending CT chest showed patchy interstitial infiltrates in the superior lingular segment and in the left lower lobe. Minimal patchy infiltrate in the right base. No effusion. no dense consolidation with air bronchograms. The right upper lung zone show a couple of tiny patchy infiltrates superiorly. There is mild cylindrical bronchiectatic change. Leucocytosis this ithink is due to methyl pred. will continue to monitor Hypothyroidism TSh up to 65 will start on synthroid Hyponatremia seems hypovolemic; be due to poor intake improved after NS. uric acid normal Item Value Date Time Urine Random Osmolality 684 MOSM/KG 05/05/19 0753 Urine Random Sodium < 10 MEQ/L 05/05/19 0753 Urine Random Potassium 48.7 MEQ/L 05/05/19 0753 Hypertension with Hypertensive heart disease amlodipine and Toprol depression. Continue sertraline and trazodone Hyperlipidemia. Continue Lipitor BPH. Continue tamsulosin Coronary artery disease with history of coronary artery bypass graft (CABG) on 03/15/2017. Aortic stenosis with history of aortic valve replacement with bioprosthetic valve on 03/15/2017. Plan/VTE VTE Prophylaxis Ordered?: Yes VS, I&O, 24H, Fishbone Vital Signs/I&O Vital Signs Date Time Temp Pulse Resp B/P (MAP) Pulse Ox O2 Delivery O2 Flow Rate FiO2 05/05/19 22:00 98.6 81 16 142/75 (97) 91 05/04/19 13:21 Room Air I&O- Last 24 Hours up to 6 AM 05/06/19 06:00 Intake Total 600 ml Output Total 900 ml Balance -300 ml Laboratory Data 24H LABS Laboratory Tests 2 05/05/19 07:53: Urine Random Osmolality 684, Urine Random Sodium < 10, Urine Random Potassium 48.7 05/05/19 08:09: Osmolality 274L, Uric Acid 4.5 Microbiology Microbiology 05/04/19 Respiratory Virus Panel (PCR) ([facility]) - Final, Complete MARQUES MENDOZA MD May 06, 2019 06:13
[2019-05-06 14:00] VITALS: BP 135/62
[2019-05-06] MEDS: traZODone 25MG PER 1/2 TABLET PO SCH (21:35)
[2019-05-06] MEDS: TAMSULOSIN 0.4 MG CAP PO SCH (21:35)
[2019-05-06 22:00] VITALS: BP 140/71
[2019-05-07] MEDS: IPRATROPIUM 0.5MG/ALBUTEROL 2.5MG INH SOL UD 3ML (DUONEB)(J7620) NEB SCH ×4 (00:32→20:05)
[2019-05-07] MEDS: DOXYCYCLINE HYCLATE 100 MG in D5W MINI-BAG PLUS 100 ML IV SCH (02:07)
[2019-05-07 06:00] VITALS: BP 155/82
[2019-05-07 06:11] LABS: HEMATOCRIT 34.9 % (42.0-52.0); HEMOGLOBIN 12.6 g/dl (13.5-17.5); MEAN CORPUSCULAR HEMOGLOBIN 33.3 pg (27.0-33.0); MEAN CORPUSCULAR HGB CONC 36.1 g/dl (32.0-36.5); MEAN CORPUSCULAR VOLUME 92.3 fl (80.0-96.0); PLATELET COUNT, AUTOMATED 262 10^3/uL (150-450); RED BLOOD COUNT 3.78 10^6/uL (4.30-6.10); WHITE BLOOD COUNT 19.6 10^3/uL (4.0-10.0)
[2019-05-07] MEDS: LEVOTHYROXINE 25MCG TABLET (0.025MG) PO SCH (06:28)
[2019-05-07] MEDS: BENZONATATE 100 MG CAP PO PRN (06:28)
[2019-05-07 06:34] LABS: BLOOD UREA NITROGEN 23 MG/DL (7-18); CARBON DIOXIDE LEVEL 25 MEQ/L (21-32); CHLORIDE LEVEL 97 MEQ/L (98-107); CREATININE FOR GFR 0.94 MG/DL (0.70-1.30); GLOMERULAR FILTRATION RATE > 60.0 (>35); GLUCOSE, FASTING 109 MG/DL (70-100); POTASSIUM SERUM 3.8 MEQ/L (3.5-5.1); SODIUM LEVEL 130 MEQ/L (136-145)
[2019-05-07] MEDS ORDERED: predniSONE 10 MG TAB PO SCH (09:00)
[2019-05-07] MEDS: amLODIPine 10 MG TAB PO SCH (09:23)
[2019-05-07] MEDS: SERTRALINE HCL 50 MG TAB PO SCH (09:23)
[2019-05-07] MEDS: METOPROLOL SUCC (TopROL XL) 100MG *XL* TAB PO SCH (09:24)
[2019-05-07] MEDS: ENOXAPARIN 40 MG/0.4 ML SYRINGE (J1650) SC SCH (09:25)
[2019-05-07] MEDS: cefTRIAXone SOD 2 GM in D5W MINI-BAG PLUS 50 ML IV SCH (11:41)
--- NOTE | 2019-05-07 12:11 | IPNPDOC ---
Subjective Date Seen The patient was seen on 05/07/19. Subjective Chief Complaint/HPI Feeling well today. No fever or chills no chest pain or sob , has some cough but is much better. working with PT. Objective Physical Examination General Exam: Positive: Alert, Cooperative, No Acute Distress Eye Exam: Positive: PERRLA, Conjunctiva & lids normal, EOMI; Negative: Sclera icteric ENT Exam: Positive: Atraumatic, Mucous membr. moist/pink, Pharynx Normal Neck Exam: Positive: Supple; Negative: JVD, thyromegaly Chest Exam: Positive: Rales (on the left chest on the back base and mifddle. ); Negative: Rhonchi, Wheezing Heart Exam: Positive: Rate Normal, Regular Rhythm, Normal S1, Normal S2, Murmurs (systolic); Negative: Rubs Abdomen Exam: Positive: Normal bowel sounds, Soft; Negative: Tenderness, Hepatospenomegaly Extremity Exam: Negative: Clubbing, Cyanosis, Edema Skin Exam: Positive: Nl turgor and temperature; Negative: Rash, Breakdown Assessment /Plan Assessment 83 year old male with a past medical history of CAD and aortic stenosis, status post aortic valve replacement with bioprosthetic valve and coronary artery bypass graft (CABG) times one 03/15/2017, hypertension, hyperlipidemia, BPH, depression, atrial flutter and rvr ,elevated thyroid-stimulating hormone (TSH) when he was here in the emergency room in August, but he did not need any thy roid replacement hormone at the time was sent in by his PM:D at the [facility] after a CXR for interstitial pneumonia. Patient was admitted for pneumonia. Acute delirium in the evening needing reorientation regarding where he is and why he is here. Hoever this morning he would identify me as his doctor in the corridor while he was working with PT. could be sun downing , infection and steroids. may have underlying dementia will get a cognitive eval. Pneumonia continue Rocephin and doxycycline has elevated CK will hold statin for now. tessalon shandals resp panel neg, urine legionella and strep pneumonie pending will order procalcitonin. CT chest showed patchy interstitial infiltrates in the superior lingular segment and in the left lower lobe. Minimal patchy infiltrate in the right base. No effusion. no dense consolidation with air bronchograms. The right upper lung zone show a couple of tiny patchy infiltrates superiorly. There is mild cylindrical bronchiectatic change. Leucocytosis this i think is due to methyl pred. will stop steroids. Hypothyroidism TSh up to 65 will start on synthroid Hyponatremia seems hypovolemic; be due to poor intake improved after NS. uric acid normal Hypertension with Hypertensive heart disease amlodipine and Toprol Depression. Continue sertraline and trazodone Hyperlipidemia. Continue Lipitor BPH. Continue tamsulosin Coronary artery disease with history of coronary artery bypass graft (CABG) on 03/15/2017. Aortic stenosis with history of aortic valve replacement with bioprosthetic valve on 03/15/2017. Dispo: Assisted living or home with 24 x7 supervision. awaiting cognitive eval. Plan/VTE VTE Prophylaxis Ordered?: Yes VS, I&O, 24H, Fishbone Vital Signs/I&O Vital Signs Date Time Temp Pulse Resp B/P (MAP) Pulse Ox O2 Delivery O2 Flow Rate FiO2 05/07/19 09:24 80 155/81 05/07/19 06:00 98.4 17 95 05/04/19 13:21 Room Air I&O- Last 24 Hours up to 6 AM 05/07/19 06:00 Intake Total 1235 ml Output Total 750 ml Balance 485 ml Laboratory Data 24H LABS Laboratory Tests 2 05/07/19 05:54: Nucleated Red Blood Cells % (auto) 0.0, Anion Gap 8, Glomerular Filtration Rate > 60.0, Blood Urea Nitrogen 23H, Creatinine 0.94, Sodium Level 130L, Potassium Level 3.8, Chloride Level 97L, Carbon Dioxide Level 25, Calcium Level 9.0 CBC/BMP Laboratory Tests 05/07/19 05:54 Red Blood Count 3.78 L, Mean Corpuscular Volume 92.3, Mean Corpuscular Hemoglobin 33.3 H, Mean Corpuscular Hemoglobin Concent 36.1, Red Cell Distribution Width 13.2, Calcium Level 9.0 Microbiology Microbiology 05/04/19 Respiratory Virus Panel (PCR) ([facility]) - Final, Complete MARQUES MENDOZA MD May 07, 2019 12:11
[2019-05-07] MEDS: DOXYCYCLINE HYCLATE 100 MG TAB PO SCH ×2 (13:00→20:19)
[2019-05-07 14:00] VITALS: BP 138/61
[2019-05-07] MEDS: traZODone 25MG PER 1/2 TABLET PO SCH (20:19)
[2019-05-07] MEDS: TAMSULOSIN 0.4 MG CAP PO SCH (20:19)
[2019-05-07 22:00] VITALS: BP 148/77
[2019-05-08] MEDS: IPRATROPIUM 0.5MG/ALBUTEROL 2.5MG INH SOL UD 3ML (DUONEB)(J7620) NEB SCH ×4 (01:23→20:00)
[2019-05-08] MEDS: LEVOTHYROXINE 25MCG TABLET (0.025MG) PO SCH (05:18)
[2019-05-08 06:00] VITALS: BP 145/75
[2019-05-08 06:44] LABS: HEMOGLOBIN 12.4 g/dl (13.5-17.5); MEAN CORPUSCULAR HEMOGLOBIN 32.5 pg (27.0-33.0); MEAN CORPUSCULAR HGB CONC 35.4 g/dl (32.0-36.5); MEAN CORPUSCULAR VOLUME 91.6 fl (80.0-96.0); PLATELET COUNT, AUTOMATED 268 10^3/uL (150-450); RED BLOOD COUNT 3.82 10^6/uL (4.30-6.10); WHITE BLOOD COUNT 16.4 10^3/uL (4.0-10.0)
[2019-05-08 07:11] LABS: BLOOD UREA NITROGEN 21 MG/DL (7-18); CALCIUM LEVEL 8.9 MG/DL (8.8-10.2); CARBON DIOXIDE LEVEL 27 MEQ/L (21-32); CHLORIDE LEVEL 97 MEQ/L (98-107); CREATININE FOR GFR 1.02 MG/DL (0.70-1.30); GLOMERULAR FILTRATION RATE > 60.0 (>35); GLUCOSE, FASTING 92 MG/DL (70-100); POTASSIUM SERUM 3.6 MEQ/L (3.5-5.1); SODIUM LEVEL 130 MEQ/L (136-145)
[2019-05-08] MEDS: METOPROLOL SUCC (TopROL XL) 100MG *XL* TAB PO SCH (09:30)
[2019-05-08] MEDS: ENOXAPARIN 40 MG/0.4 ML SYRINGE (J1650) SC SCH (09:30)
[2019-05-08] MEDS: amLODIPine 10 MG TAB PO SCH (09:31)
[2019-05-08] MEDS: DOXYCYCLINE HYCLATE 100 MG TAB PO SCH ×2 (09:31→20:33)
[2019-05-08] MEDS: SERTRALINE HCL 50 MG TAB PO SCH (09:31)
[2019-05-08] MEDS: cefTRIAXone SOD 2 GM in D5W MINI-BAG PLUS 50 ML IV SCH (11:17)
[2019-05-08 14:00] VITALS: BP 129/69
[2019-05-08 14:59] LABS: BODY FLUID CULTURE Not Indicated (.); LEGIONELLA ANTIGEN URINE Negative (Negative); ORGANISM ID Not indicated. (.); SPECIMEN SOURCE Urine (.); URINE STREP PNEUMONIAE ANTIGEN Negative (Negative)
--- NOTE | 2019-05-08 15:13 | IPN ---
DATE OF SERVICE: 05/08/2019 SUBJECTIVE: The patient denies any fever or chills last night. He still has a cough productive of scant white sputum. Shortness of breath has resolved. The patient is cooperative with physical therapy. The patient's health care proxy is at the bedside stating that she will not be available to watch him at home and provide 24/7 care. PHYSICAL EXAM: Vital signs: Temperature 98.5, pulse 64, respiratory rate 18, blood pressure 145/75, 91% on room air. Generally, patient is awake, alert, oriented to himself. Answering questions appropriately. No jugular venous distention (JVD). No thyromegaly. He has erythematous scaly changes on his skin, on the face, arms and chest. The patient has no respiratory distress or use of accessory muscles. Trachea is midline. Lungs are diminished, clear to auscultation. Heart: S1, S2. Sinus rhythm. Abdomen is soft, nontender, nondistended. Positive bowel sounds. Extremities: No cyanosis or clubbing. LABORATORY DATA: RSV panel is negative. White count 16, hemoglobin 12, hematocrit 35, platelet count 268. Sodium 130, potassium 3.6, chloride 97, bicarbonate 27, BUN 21, creatinine 1, glucose of 92. TSH is 33. ASSESSMENT AND PLAN: This is an 83-year-old male, lives alone at home with health care proxy, history of CAD, , CABG, aortic valve replacement, bioprosthesis, atrial flutter with rapid ventricular response (RVR), hypertension, hyperlipidemia, BPH, depression was found to have hypothyroidism and pneumonia treated at the [facility] currently with the following issues. 1. Acute delirium with ing. The patient was wandering in the corridor yesterday. Health care proxy says that the patient was looking for her at [facility]. The patient was subsequently brought back to the floor yesterday evening. He says that he was looking for food. Currently does not require a sitter and has a camera and a bed alarm at the bedside. The patient is still on antibiotics for her pneumonia Rocephin and doxycycline. 2. Community-acquired pneumonia with CT chest showing patchy infiltrate at the right base and superior lingula of the left lower lobe. Urine legionella antigen and streptococcus pneumoniae serologies are still pending. Influenza A and B and respiratory panel are negative. The patient is continued on ceftriaxone started on 05/05/2019 and doxycycline added on 05/07/2019. Tessalon Perles as needed for cough. 3. Hypertension. Controlled on Norvasc and metoprolol. 4. Depression: On sertraline. 5. Hypothyroidism. On Synthroid 25 mcg. 6. BPH. On chronic Flomax. 7. Insomnia. On Desyrel. DISPOSITION: The patient is not safe for hospital discharge. Physical therapy recommendations are 24/7 supervision at home versus assisted living. He currently lives alone and cannot provide 24/7 care. Therefore, the patient will need assisted living placement versus improvement and potentially discharge home when he is significantly improved. SELINA
[2019-05-08] MEDS ORDERED: TUBERCULIN PPD 5 UNITS/0.1 ML ID ONE (17:00)
[2019-05-08] MEDS: traZODone 25MG PER 1/2 TABLET PO SCH (20:33)
[2019-05-08] MEDS: BENZONATATE 100 MG CAP PO PRN (20:34)
[2019-05-08] MEDS: TAMSULOSIN 0.4 MG CAP PO SCH (20:34)
[2019-05-08 22:00] VITALS: BP 141/78
[2019-05-09] MEDS: IPRATROPIUM 0.5MG/ALBUTEROL 2.5MG INH SOL UD 3ML (DUONEB)(J7620) NEB SCH ×4 (01:50→19:57)
[2019-05-09] MEDS: LEVOTHYROXINE 25MCG TABLET (0.025MG) PO SCH (05:36)
[2019-05-09 06:00] VITALS: BP 137/69
[2019-05-09 06:17] LABS: HEMATOCRIT 38.5 % (42.0-52.0); HEMOGLOBIN 13.8 g/dl (13.5-17.5); MEAN CORPUSCULAR HEMOGLOBIN 32.9 pg (27.0-33.0); MEAN CORPUSCULAR HGB CONC 35.8 g/dl (32.0-36.5); MEAN CORPUSCULAR VOLUME 91.9 fl (80.0-96.0); PLATELET COUNT, AUTOMATED 262 10^3/uL (150-450); RED BLOOD COUNT 4.19 10^6/uL (4.30-6.10); WHITE BLOOD COUNT 10.5 10^3/uL (4.0-10.0)
[2019-05-09 06:38] LABS: BLOOD UREA NITROGEN 17 MG/DL (7-18); CALCIUM LEVEL 8.6 MG/DL (8.8-10.2); CARBON DIOXIDE LEVEL 24 MEQ/L (21-32); CHLORIDE LEVEL 97 MEQ/L (98-107); CREATININE FOR GFR 0.86 MG/DL (0.70-1.30); GLOMERULAR FILTRATION RATE > 60.0 (>35); GLUCOSE, FASTING 89 MG/DL (70-100); POTASSIUM SERUM 3.4 MEQ/L (3.5-5.1); SODIUM LEVEL 131 MEQ/L (136-145)
[2019-05-09] MEDS: amLODIPine 10 MG TAB PO SCH (08:30)
[2019-05-09] MEDS: DOXYCYCLINE HYCLATE 100 MG TAB PO SCH (08:30)
[2019-05-09] MEDS: SERTRALINE HCL 50 MG TAB PO SCH (08:30)
[2019-05-09] MEDS: ENOXAPARIN 40 MG/0.4 ML SYRINGE (J1650) SC SCH (08:31)
[2019-05-09] MEDS: METOPROLOL SUCC (TopROL XL) 100MG *XL* TAB PO SCH (08:31)
[2019-05-09] MEDS ORDERED: POTASSIUM CHLORIDE 10 MEQ SR TABLET PO ONE (10:00)
[2019-05-09] MEDS: cefTRIAXone SOD 2 GM in D5W MINI-BAG PLUS 50 ML IV SCH (12:23)
[2019-05-09] MEDS ORDERED: ACETAMINOPHEN 500 MG TAB PO ONE (13:00)
[2019-05-09 14:00] VITALS: BP 130/75
[2019-05-09] MEDS ORDERED: ACETAMINOPHEN TAB 650MG DOSE (2X325MG) PO PRN (17:00)
--- NOTE | 2019-05-09 17:20 | IPNPDOC ---
Date Seen The patient was seen on 05/09/19. Progress Note SUBJECTIVE: no fever, cough, or chills. "My friend recommends [facility] for me." Pt lives alone, and unable to obtain / supervision, and is open to placement. Despite 5days of antibiotics, pt denies any diarrhea or loose bowel movements. OBJECTIVE: Physical Examination VITALS: PLS SEE BELOW General Exam: erythematous patches on face nonpruritic nonindurated. slow to speak, but appropriate. no use of accessory respiratory muscles. sitting on chair watching television. HEENT: no JVD, no thyromegaly Lungs: no wheezing. base with coarse breath sounds. Heart: S1S2 RRR (+) JFEFERY at apex. Abdomen: Soft (+) bs x 4 quadrants, non Tender, no rebound, or guarding, no HSM Extremity: no Clubbing, Cyanosis, Edema laboratory data, microbiology: imaging studies: pls see below ASSESSMENT AND PLAN: 83 year old male with CAD and aortic stenosis, status post aortic valve replacement with bioprosthetic valve and coronary artery bypass graft (CABG) times one 03/15/2017, hypertension, hyperlipidemia, BPH, depression, atrial flutter and rvr ,elevated thyroid-stimulating hormone (TSH) Hypothyroidism, was sent by his [facility] provider for IV antibiotics for CAP. Community-acquired Pneumonia on day #5 of iv Rocephin and doxycycline. pt is to complete a 7 day course, but may be transitioned to oral avelox. CT chest showed patchy interstitial infiltrates in the superior lingular segment and in the left lower lobe. Minimal patchy infiltrate in the right base. No effusion. no dense consolidation with air bronchograms. The right upper lung zone show a couple of tiny patchy infiltrates superiorly. There is mild cylindrical bronchiectatic change. Hypothyroidism on synthroid Hypertensive heart disease controlled on amlodipine and Toprol Dispo: [facility] placement to be arranged by PFS. pt may be transferred to ALC/SNF status to complete oral antibiotics. VS, I&O, 24H, Fishbone Vital Signs/I&O Vital Signs Date Time Temp Pulse Resp B/P (MAP) Pulse Ox O2 Delivery O2 Flow Rate FiO2 05/09/19 14:00 97.2 80 16 130/75 (93) 100 05/04/19 13:21 Room Air I&O- Last 24 Hours up to 6 AM 05/09/19 06:00 Intake Total 740 ml Output Total 800 ml Balance -60 ml Laboratory Data 24H LABS Laboratory Tests 2 05/09/19 05:32: Nucleated Red Blood Cells % (auto) 0.2H, Anion Gap 10, Glomerular Filtration Rate > 60.0, Blood Urea Nitrogen 17, Creatinine 0.86, Sodium Level 131L, Potassium Level 3.4L, Chloride Level 97L, Carbon Dioxide Level 24, Calcium Level 8.6L CBC/BMP Laboratory Tests 05/09/19 05:32 Red Blood Count 4.19 L, Mean Corpuscular Volume 91.9, Mean Corpuscular Hemoglobin 32.9, Mean Corpuscular Hemoglobin Concent 35.8, Red Cell Distribution Width 13.3, Calcium Level 8.6 L Microbiology Microbiology 05/04/19 Respiratory Virus Panel (PCR) ([facility]) - Final, Complete SONIA DE LA CRUZ MD May 09, 2019 17:20
[2019-05-09] MEDS: TAMSULOSIN 0.4 MG CAP PO SCH (20:34)
[2019-05-09] MEDS: traZODone 25MG PER 1/2 TABLET PO SCH (20:34)
[2019-05-09 22:00] VITALS: BP 127/68
[2019-05-10] MEDS: IPRATROPIUM 0.5MG/ALBUTEROL 2.5MG INH SOL UD 3ML (DUONEB)(J7620) NEB SCH ×5 (01:44→19:39)
[2019-05-10] MEDS: LEVOTHYROXINE 25MCG TABLET (0.025MG) PO SCH (05:39)
[2019-05-10] MEDS: MOXIFLOXACIN 400 MG TAB PO SCH (05:39)
[2019-05-10 06:00] VITALS: BP_SYST 124; BP_SYST 170; BP_DIAS 120; BP_DIAS 71
[2019-05-10 06:12] LABS: HEMATOCRIT 39.9 % (42.0-52.0); HEMOGLOBIN 14.3 g/dl (13.5-17.5); MEAN CORPUSCULAR HEMOGLOBIN 33.3 pg (27.0-33.0); MEAN CORPUSCULAR HGB CONC 35.8 g/dl (32.0-36.5); PLATELET COUNT, AUTOMATED 257 10^3/uL (150-450); RED BLOOD COUNT 4.29 10^6/uL (4.30-6.10)
[2019-05-10 06:32] LABS: BLOOD UREA NITROGEN 20 MG/DL (7-18); CALCIUM LEVEL 8.8 MG/DL (8.8-10.2); CARBON DIOXIDE LEVEL 25 MEQ/L (21-32); CHLORIDE LEVEL 98 MEQ/L (98-107); CREATININE FOR GFR 1.07 MG/DL (0.70-1.30); GLOMERULAR FILTRATION RATE > 60.0 (>35); GLUCOSE, FASTING 97 MG/DL (70-100); SODIUM LEVEL 131 MEQ/L (136-145)
[2019-05-10 08:17] VITALS: BP 144/74
[2019-05-10] MEDS: amLODIPine 10 MG TAB PO SCH (08:17)
[2019-05-10] MEDS: METOPROLOL SUCC (TopROL XL) 100MG *XL* TAB PO SCH (08:17)
[2019-05-10] MEDS: SERTRALINE HCL 50 MG TAB PO SCH (08:17)
[2019-05-10] MEDS: ENOXAPARIN 40 MG/0.4 ML SYRINGE (J1650) SC SCH (08:18)
[2019-05-10 08:20] VITALS: BP 147/72
[2019-05-10 08:30] VITALS: BP 147/72
[2019-05-10] MEDS ORDERED: PPD DOCUMENTATION ENTRY MISC XX ONE (17:00)
[2019-05-10 17:11] LABS: HEMATOCRIT 41.2 % (42.0-52.0); HEMOGLOBIN 14.8 g/dl (13.5-17.5); MEAN CORPUSCULAR HEMOGLOBIN 33.6 pg (27.0-33.0); MEAN CORPUSCULAR HGB CONC 35.9 g/dl (32.0-36.5); MEAN CORPUSCULAR VOLUME 93.6 fl (80.0-96.0); PLATELET COUNT, AUTOMATED 271 10^3/uL (150-450)
[2019-05-10 17:32] LABS: BLOOD UREA NITROGEN 23 MG/DL (7-18); CALCIUM LEVEL 8.4 MG/DL (8.8-10.2); CARBON DIOXIDE LEVEL 28 MEQ/L (21-32); CHLORIDE LEVEL 97 MEQ/L (98-107); GLOMERULAR FILTRATION RATE > 60.0 (>35); GLUCOSE, FASTING 99 MG/DL (70-100); SODIUM LEVEL 131 MEQ/L (136-145)
[2019-05-10] MEDS: TAMSULOSIN 0.4 MG CAP PO SCH (20:39)
[2019-05-10] MEDS: traZODone 25MG PER 1/2 TABLET PO SCH (20:39)
[2019-05-10 22:00] VITALS: BP 140/79
[2019-05-11] MEDS: IPRATROPIUM 0.5MG/ALBUTEROL 2.5MG INH SOL UD 3ML (DUONEB)(J7620) NEB SCH ×3 (02:33→14:00)
[2019-05-11] MEDS: MOXIFLOXACIN 400 MG TAB PO SCH (05:49)
[2019-05-11] MEDS: LEVOTHYROXINE 25MCG TABLET (0.025MG) PO SCH (05:49)
[2019-05-11 06:00] VITALS: BP 140/70
[2019-05-11 06:12] LABS: HEMOGLOBIN 13.1 g/dl (13.5-17.5); MEAN CORPUSCULAR HEMOGLOBIN 32.8 pg (27.0-33.0); MEAN CORPUSCULAR HGB CONC 35.4 g/dl (32.0-36.5); MEAN CORPUSCULAR VOLUME 92.5 fl (80.0-96.0); PLATELET COUNT, AUTOMATED 238 10^3/uL (150-450); WHITE BLOOD COUNT 8.5 10^3/uL (4.0-10.0)
[2019-05-11 06:31] LABS: BLOOD UREA NITROGEN 19 MG/DL (7-18); CALCIUM LEVEL 8.2 MG/DL (8.8-10.2); CARBON DIOXIDE LEVEL 24 MEQ/L (21-32); CHLORIDE LEVEL 100 MEQ/L (98-107); CREATININE FOR GFR 0.97 MG/DL (0.70-1.30); GLOMERULAR FILTRATION RATE > 60.0 (>35); GLUCOSE, FASTING 94 MG/DL (70-100); POTASSIUM SERUM 3.6 MEQ/L (3.5-5.1); SODIUM LEVEL 132 MEQ/L (136-145)
[2019-05-11] MEDS: amLODIPine 10 MG TAB PO SCH (08:47)
[2019-05-11] MEDS: METOPROLOL SUCC (TopROL XL) 100MG *XL* TAB PO SCH (08:47)
[2019-05-11] MEDS: ENOXAPARIN 40 MG/0.4 ML SYRINGE (J1650) SC SCH (08:47)
[2019-05-11] MEDS: SERTRALINE HCL 50 MG TAB PO SCH (08:47)
[2019-05-11] MEDS ORDERED: LEVO25TA5 PO (09:50)
[2019-05-11] MEDS ORDERED: MOXI1TAB PO (09:51)
[2019-05-11 14:00] VITALS: BP 144/68
--- NOTE | 2019-05-11 20:46 | DSES ---
DATE OF ADMISSION: 05/04/2019 DATE OF DISCHARGE: 05/11/2019 The patient was discharged home with 24/7 care. PRIMARY DISCHARGE DIAGNOSES: 1. Community-acquired pneumonia, completed 5 days of IV Rocephin and doxycycline. The patient is transitioned to oral Levaquin as an outpatient as his pharmacy would not fill the moxifloxacin per insurance policy. 2. Hypothyroidism. 3. Hypertensive heart disease. HISTORY OF PRESENT ILLNESS: This is an 83-year-old male with a history of coronary artery disease, aortic stenosis with aortic valve replacement with bioprosthetic valve, coronary artery bypass graft (CABG), hypertension, dyslipidemia, benign prostatic hypertrophy (BPH), depression, atrial flutter with rapid ventricular response, hypothyroidism, was sent by his [facility] provider due to complaints of falls and shortness of breath. He was found to have community-acquired pneumonia. CT of the chest showed patchy infiltrates in the left lower lobe and right base. No consolidation or air bronchograms. The patient had bronchiectatic change. His white count was elevated at 10.1 on admission, peaked at 20.2. Oxygen saturation was 92% on room air. He was afebrile at 98.1. He was given IV ceftriaxone and doxycycline for atypical coverage. Respiratory panel was negative. He had very scant sputum production and no sputum was obtained. Urine Streptococcal antigen was negative, as was urine Legionella antigen. Influenza A and B were negative. His white count peaked at 20.2, and decreased down to 8.5 on discharge. He was found to have slight hyponatremia with sodium level of 127, thought to be due to decreased oral intake, which improved at hospital discharge at 132. The patient responded well to antibiotics but was very weakened and debilitated with significant poor memory with physical therapy (PT) recommendation for 24/7 care. He initially was going to be discharged to [facility] after visiting the facility. The patient then changed his mind and was able to arrange for 24/7 care at home. LABORATORIES ON DISCHARGE: White count 8.5, hemoglobin 13, hematocrit 37, platelet count 238. Sodium 132, potassium 3.6, chloride 100, bicarbonate 24, BUN 19, creatinine 0.97, glucose 94. CT of the chest showed patchy infiltrates, greatest in the left lower lobe, some in the superior lingula, right base and minimally in the right upper lung. No effusion, dense consolidation with air bronchograms or parenchymal mass. Mild bronchiectasis. Prior sternotomy with aortic valve replacement with heavily calcified mitral annulus. Sternotomy is well healed. DISCHARGE MEDICATIONS: - Avelox was not covered by his prescription coverage and therefore Levaquin was substituted 750 mg by mouth for 2 days and then discontinue - levothyroxine 25 mcg daily - amlodipine 10 mg daily - atorvastatin 40 mg daily - vitamin D3 2000 units daily - metoprolol 100 mg daily - sertraline 50 mg daily - tamsulosin 0.4 mg at night - trazodone 25 mg at night Time spent on discharge 30 minutes. MTDD
== END 2019-05-11 15:21 | disposition home or self-care (01) | DRG 194 ==
LOC: M ED 10:19 → M ED INP 12:44 → M MSPAV 14:27
PROVIDERS: ADMIT Family Medicine; ATTEND General Practice
DX: J18.9 Pneumonia, unspecified organism (principal); E87.1 Hypo-osmolality and hyponatremia; I48.92 Unspecified atrial flutter; R41.0 Disorientation, unspecified; E03.9 Hypothyroidism, unspecified; I11.9 Hypertensive heart disease without heart failure; I25.10 Atherosclerotic heart disease of native coronary artery without angina pectoris; I35.0 Nonrheumatic aortic (valve) stenosis; Z95.2 Presence of prosthetic heart valve; Z95.1 Presence of aortocoronary bypass graft; E78.5 Hyperlipidemia, unspecified; N40.0 Benign prostatic hyperplasia without lower urinary tract symptoms; F32.9 Major depressive disorder, single episode, unspecified; Z79.899 Other long term (current) drug therapy; D72.829 Elevated white blood cell count, unspecified; G47.00 Insomnia, unspecified

== ENCOUNTER → 2020-01-30 | Outpatient (REF) | payer OTHER, MEDICARE ==
[~2020-01-30] MED LIST changes: +AMLO10TA5 PO; +D-10TAB3 PO; +LEVO25TA5 PO; +METO200T28 PO; +MOXI1TAB PO; +PHARMACY COMMENT; +SENN-53 PO; -SENN1TAB40 PO; +SERT-141 PO; -SIMV40TA2 PO; +SIMV40TA20 PO
== END ==
LOC: M LAB REF 17:53
PROVIDERS: ATTEND Physician Assistant
DX: D48.9 Neoplasm of uncertain behavior, unspecified (principal)
CPT/HCPCS: 11102; 17000; 17003; 88305; G0463

== ENCOUNTER 2020-08-05 04:37 | Emergency (ER) | payer MEDICARE, OTHER ==
[~2020-08-05] VITALS: Ht 172.7 cm; Wt 75.0 kg
[~2020-08-05 04:37] MED LIST changes: -AMLO10TA5 PO; +AMLO1TAB25 PO; -ASPI81TA85 PO; +ASPI81TA86 PO
[2020-08-05 05:53] LABS: BASO % 0.4 % (0.0-1.0); EOS # 0.2 10^3/uL (0.0-0.5); EOS % 1.8 % (0.0-3.0); HEMATOCRIT 43.3 % (42.0-52.0); HEMOGLOBIN 14.7 g/dl (13.5-17.5); LYMPH # 1.5 10^3/uL (1.5-5.0); LYMPH % 15.5 % (24.0-44.0); MEAN CORPUSCULAR HGB CONC 33.9 g/dl (32.0-36.5); MEAN CORPUSCULAR VOLUME 94.1 fl (80.0-96.0); MONO # 0.7 10^3/uL (0.0-0.8); MONO % 6.9 % (0.0-5.0); NEUTROPHILS # 7.4 10^3/uL (1.5-8.5); NEUTROPHILS % 74.9 % (36.0-66.0); PLATELET COUNT, AUTOMATED 245 10^3/uL (150-450); WHITE BLOOD COUNT 9.9 10^3/uL (4.0-10.0)
[2020-08-05 06:28] LABS: BLOOD UREA NITROGEN 22 MG/DL (7-18); CALCIUM LEVEL 9.4 MG/DL (8.8-10.2); CARBON DIOXIDE LEVEL 24 MEQ/L (21-32); CHLORIDE LEVEL 107 MEQ/L (98-107); CK-MB VALUE MASS 2.5 NG/ML (<3.6); CPK CREATINE PHOSPHOKINASE 191 U/L (39-308); CREATININE FOR GFR 0.84 MG/DL (0.70-1.30); FREE T4 1.04 NG/DL (0.76-1.46); GLOMERULAR FILTRATION RATE > 60.0 (>35); GLUCOSE, FASTING 109 MG/DL (70-100); MAGNESIUM LEVEL 2.4 MG/DL (1.8-2.4); MB/CK RELATIVE INDEX 1.31 (< OR =4); POTASSIUM SERUM 4.3 MEQ/L (3.5-5.1); SODIUM LEVEL 137 MEQ/L (136-145); TROPONIN I < 0.02 NG/ML (< 0.10)
[2020-08-05 07:01] VITALS: BP 161/77
--- NOTE | 2020-08-05 07:12 | REPVR ---
PROCEDURE INFORMATION: Exam: XR Chest, 1 View Exam date and time: 08/05/2020 5:43 AM Age: 84 years old Clinical indication: Chest pain; Type not specified TECHNIQUE: Imaging protocol: XR of the chest Views: 1 view. COMPARISON: CT Chest without contrast 05/05/2019 8:27 AM FINDINGS: Limitations: Multiple EKG leads are superimposed on the chest. Tubes, catheters and devices: There are sternal wires consistent with previous sternotomy incision. Aortic valve replacement and heavy calcification of the mitral annulus are evident on previous CT. Lungs: Unremarkable. No consolidation. Pleural space: Unremarkable. No pleural effusion. No pneumothorax. Heart/Mediastinum: See "Tubes, catheters and devices" finding. Bones/joints: Unremarkable. Soft tissues: No evidence of an acute chest abnormality. IMPRESSION: No evidence of an acute chest abnormality. Electronically signed by: Abilio Maldonado On 08/05/2020 07:13:01 AM
--- NOTE | 2020-08-05 07:14 | ECGEPIP ---
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
== END 2020-08-05 07:02 | disposition home or self-care (01) ==
LOC: M ED 04:37
DX: I49.3 Ventricular premature depolarization (principal); I10 Essential (primary) hypertension; E07.9 Disorder of thyroid, unspecified; Z79.899 Other long term (current) drug therapy; Z79.890 Hormone replacement therapy

== ENCOUNTER → 2021-01-08 | Outpatient (CLI) | payer OTHER ==
[~2021-01-08] MED LIST changes: +HYDR-3490 PO; -HYDR25TAB PO; -LISI-542 PO; +LISI-898 PO
--- NOTE | 2021-01-08 17:24 | REPVR ---
PROCEDURE INFORMATION: Exam: MR Lumbar Spine Without Contrast Exam date and time: 01/08/2021 3:39 PM Age: 85 years old Clinical indication: Low back pain; Additional info: Lbp TECHNIQUE: Imaging protocol: Multiplanar magnetic resonance images of the lumbar spine without intravenous contrast. COMPARISON: No relevant prior studies available. FINDINGS: Vertebrae: The lumbar vertebral bodies are normal in height. Grade 1/2 anterolisthesis of L5 on S1, with bilateral spondylolysis. Spinal cord: The distal end of the conus medullaris ends at L1-2, normal in position. Multilevel findings: Degenerative disc disease is noted diffusely within the lumbar spine, with a decrease in the T2 signal intensity of the discs as well as disc bulge/osteophyte complexes. There is a decrease in disc height from L3-L4 through L5-S1. Modic endplate changes are noted from L2-L3 through L5-S1. L1-L2: Minimal disc bulging, without significant spinal canal stenosis or neural foraminal narrowing. L2-L3: Bilateral facet arthropathy with hypertrophy of the ligamentum flavum. Broad-based disc bulge, with severe spinal canal stenosis. The AP dimension of the thecal sac measures 0.6 cm. There is narrowing of both lateral recesses. Moderate bilateral neural foraminal narrowing. L3-L4: Bilateral facet arthropathy with hypertrophy of the ligamentum flavum. Broad-based disc bulge, with severe spinal canal stenosis. The AP dimension of the thecal sac measures 0.6 cm. There is narrowing of both lateral recesses. Severe right and moderate left neural foraminal narrowing. L4-L5: Bilateral facet arthropathy. Broad-based disc bulge, without significant spinal canal stenosis. Severe right and moderate left neural foraminal narrowing. There is narrowing of both lateral recesses. L5-S1: Bilateral facet arthropathy. Broad-based disc bulge, with mild spinal canal stenosis. Severe bilateral neural foraminal narrowing, with compression of the exiting right L5 nerve root. There is narrowing of both lateral recesses. Soft tissues: No significant paraspinal swelling. IMPRESSION: 1. Grade 1/2 anterolisthesis of L5 on S1, with bilateral spondylolysis. 2. Degenerative changes are noted diffusely within the lumbar spine, as described above. 3. Severe spinal canal stenosis at L2-L3 and L3-L4. Mild spinal canal stenosis at L5-S1. 4. Neural foraminal narrowing from L2-L3 through L5-S1, with compression of the exiting right L5 nerve root. Electronically signed by: Doroteo Cool On 01/08/2021 17:23:47 PM
== END ==
LOC: M PLARAD 14:10
PROVIDERS: ATTEND Physician Assistant Medical
DX: M43.06 Spondylolysis, lumbar region (principal); M51.36 Other intervertebral disc degeneration, lumbar region; M54.5 Low back pain

== ENCOUNTER → 2021-01-13 | Outpatient (REF) | payer OTHER | LOC: M LAB REF 19:23 | PROVIDERS: ATTEND Physician Assistant | DX: C44.622 Squamous cell carcinoma of skin of right upper limb, including shoulder (principal) ==

== ENCOUNTER → 2021-03-31 | Outpatient (REF) | payer OTHER | LOC: M LAB REF 14:32 | PROVIDERS: ATTEND Dermatology | DX: L82.0 Inflamed seborrheic keratosis (principal) ==

== ENCOUNTER → 2021-04-07 | Outpatient (REF) | payer OTHER | LOC: M LAB REF 18:40 | PROVIDERS: ATTEND Dermatology | DX: T14.90XD Injury, unspecified, subsequent encounter (principal) ==

== ENCOUNTER 2021-10-13 08:07 | Inpatient (IN) | payer OTHER ==
[~2021-10-13] VITALS: Ht 177.8 cm; Wt 72.5 kg
[2021-10-13] VITALS (10 sets, daily range): BP systolic 106–147; BP diastolic 56–66
[~2021-10-13 08:07] MED LIST changes: -LISI-898 PO; +LISI5TAB11 PO
[2021-10-13] MEDS ORDERED: cefTRIAXone SOD 2 GM in D5W MINI-BAG PLUS 50 ML IV ONE (08:45)
[2021-10-13] MEDS ORDERED: NS 2,350 ML in IV 1 EA IV ONE (08:45)
[2021-10-13 08:57] LABS: BASO # 0.1 10^3/uL (0.0-0.2); BASO % 0.3 % (0.0-1.0); EOS % 0.2 % (0.0-3.0); HEMATOCRIT 37.8 % (42.0-52.0); HEMOGLOBIN 12.6 g/dl (13.5-17.5); LYMPH # 1.4 10^3/uL (1.5-5.0); LYMPH % 5.3 % (24.0-44.0); MEAN CORPUSCULAR HEMOGLOBIN 30.1 pg (27.0-33.0); MEAN CORPUSCULAR HGB CONC 33.3 g/dl (32.0-36.5); MEAN CORPUSCULAR VOLUME 90.2 fl (80.0-96.0); MONO % 7.5 % (2.0-8.0); NEUTROPHILS # 22.6 10^3/uL (1.5-8.5); NEUTROPHILS % 86.1 % (36.0-66.0); PLATELET COUNT, AUTOMATED 346 10^3/uL (150-450); RED BLOOD COUNT 4.19 10^6/uL (4.30-6.10); WHITE BLOOD COUNT 26.2 10^3/uL (4.0-10.0)
[2021-10-13] MEDS ORDERED: ONDANSETRON 4MG/2ML VIAL IV ONE (09:10)
[2021-10-13] MEDS ORDERED: ONDANSETRON 4MG/2ML VIAL As Ordered ONE (09:10)
[2021-10-13 09:27] LABS: MB/CK RELATIVE INDEX 0.91 (< OR =4)
[2021-10-13 09:38] LABS: ALBUMIN 3.6 GM/DL (3.2-5.2); BILIRUBIN,TOTAL 2.7 MG/DL (0.2-1.0); THYROID STIMULATING HORMONE 6.8 uIU/ML (0.358-3.740); THYROXINE (T4) 8.6 UG/DL (4.5-12.0); TOTAL PROTEIN 7.5 GM/DL (6.4-8.2)
[2021-10-13 10:35] LABS: CK-MB VALUE MASS < 1.0 NG/ML (<3.6); CPK CREATINE PHOSPHOKINASE 99 U/L (39-308); MB/CK RELATIVE INDEX 1.01 (< OR =4)
[2021-10-13] MEDS ORDERED: VITA100093 PO (11:26)
[2021-10-13] MEDS ORDERED: LEVO25TA5 PO (11:27)
[2021-10-13] MEDS ORDERED: LEVO50TA5 PO (11:47)
[2021-10-13] MEDS ORDERED: HYDR-3363 PO (11:50)
[2021-10-13] MEDS ORDERED: MEMA10TA19 PO (11:50)
[2021-10-13] MEDS ORDERED: ASPI81CH33 PO (11:50)
[2021-10-13] MEDS ORDERED: METO1TAB33 PO (11:50)
[2021-10-13] MEDS ORDERED: MED NOTE (11:51)
[2021-10-13] MEDS ORDERED: HOME MED LIST COMPLETE! XX SCH (11:55)
[2021-10-13] MEDS: AZITHROMYCIN INJ 500 MG, VIAL MATE ADAPTER 1 EACH in NS 250 ML IV SCH (13:24)
[2021-10-13 13:45] LABS: ABG BASE EXCESS -3.6 (-2.0-2.0); ABG HCO3 19.6 MEQ/L (22.0-26.0); ABG O2 SATURATION 91.7 % (95.0-99.0); ABG PARTIAL PRESSURE CO2 29.8 mmHg (35.0-45.0); ABG PARTIAL PRESSURE O2 60.8 mmHg (75.0-100.0); ABG STANDARD HCO3 21.4 MEQ/L (22.0-26.0); ABG TOTAL CO2 20.6 MEQ/L (23.0-31.0); ABG pH (ARTERIAL) 7.437 UNITS (7.350-7.450)
[2021-10-13] MEDS: PANTOPRAZOLE 40MG VIAL (C9113 PER 1) IV SCH (14:44)
[2021-10-13] MEDS: ENOXAPARIN 40MG/0.4ML SYRINGE (J1650 PER 10MG) SC SCH (14:45)
[2021-10-13] MEDS ORDERED: FUROSEMIDE 40MG/4ML VIAL (J1940) IV ONE (15:50)
[2021-10-13] MEDS ORDERED: POTASSIUM CHLORIDE 10% LIQ 20 MEQ/15 ML UDC PO ONE (17:20)
[2021-10-13] MEDS: TAMSULOSIN 0.4 MG CAP PO SCH (20:03)
[2021-10-13] MEDS ORDERED: METOPROLOL SUCC (TopROL XL) 50MG **XL** TAB PO ONE (23:20)
[2021-10-13] MEDS: hydrOXYzine 25 MG TAB PO SCH (23:35)
[2021-10-14] VITALS (53 sets, daily range): BP systolic 79–174; BP diastolic 50–74
[2021-10-14] MEDS ORDERED: ACETAMINOPHEN 650 MG SUPP PR ONE (02:00)
[2021-10-14 03:36] LABS: ABG BASE EXCESS -1.6 (-2.0-2.0); ABG HCO3 22.1 MEQ/L (22.0-26.0); ABG PARTIAL PRESSURE CO2 33.9 mmHg (35.0-45.0); ABG PARTIAL PRESSURE O2 79.8 mmHg (75.0-100.0); ABG STANDARD HCO3 23.1 MEQ/L (22.0-26.0); ABG TOTAL CO2 23.1 MEQ/L (23.0-31.0); ABG pH (ARTERIAL) 7.432 UNITS (7.350-7.450)
[2021-10-14] MEDS: LEVOTHYROXINE 50MCG TABLET (0.05MG) PO SCH (04:55)
[2021-10-14] MEDS ORDERED: FUROSEMIDE 20MG/2ML VIAL (J1940) IV ONE (05:00)
[2021-10-14 05:13] LABS: BASO # 0.1 10^3/uL (0.0-0.2); BASO % 0.2 % (0.0-1.0); EOS # 0.1 10^3/uL (0.0-0.5); EOS % 0.2 % (0.0-3.0); HEMATOCRIT 31.4 % (42.0-52.0); LYMPH # 1.2 10^3/uL (1.5-5.0); LYMPH % 5.3 % (24.0-44.0); MEAN CORPUSCULAR HEMOGLOBIN 30.1 pg (27.0-33.0); MEAN CORPUSCULAR HGB CONC 33.1 g/dl (32.0-36.5); MEAN CORPUSCULAR VOLUME 90.8 fl (80.0-96.0); MONO % 7.3 % (2.0-8.0); NEUTROPHILS # 20.1 10^3/uL (1.5-8.5); NEUTROPHILS % 86.1 % (36.0-66.0); PLATELET COUNT, AUTOMATED 253 10^3/uL (150-450); RED BLOOD COUNT 3.46 10^6/uL (4.30-6.10); WHITE BLOOD COUNT 23.4 10^3/uL (4.0-10.0)
[2021-10-14 05:45] LABS: HEMOGLOBIN 10.4 g/dl (13.5-17.5); MONO # 1.7 10^3/uL (0.0-0.8)
[2021-10-14 05:47] LABS: ALBUMIN 2.8 GM/DL (3.2-5.2); ALT/SGPT 24 U/L (12-78); BILIRUBIN,TOTAL 1.6 MG/DL (0.2-1.0); BLOOD UREA NITROGEN 26 MG/DL (7-18); CALCIUM LEVEL 8.3 MG/DL (8.8-10.2); CARBON DIOXIDE LEVEL 25 MEQ/L (21-32); CHLORIDE LEVEL 106 MEQ/L (98-107); CREATININE FOR GFR 1.08 MG/DL (0.70-1.30); GLOMERULAR FILTRATION RATE > 60.0 (>35); GLUCOSE, FASTING 102 MG/DL (70-100); POTASSIUM SERUM 3.9 MEQ/L (3.5-5.1); SODIUM LEVEL 137 MEQ/L (136-145); TOTAL PROTEIN 5.9 GM/DL (6.4-8.2)
[2021-10-14] MEDS: PANTOPRAZOLE 40MG VIAL (C9113 PER 1) IV SCH (08:15)
[2021-10-14] MEDS: ASPIRIN 81 MG CHEW TABLET PO SCH (08:15)
[2021-10-14] MEDS: ENOXAPARIN 40MG/0.4ML SYRINGE (J1650 PER 10MG) SC SCH (08:16)
[2021-10-14] MEDS: cefTRIAXone SOD 2 GM in D5W MINI-BAG PLUS 50 ML IV SCH (08:16)
[2021-10-14] MEDS: ACETAMINOPHEN 650 MG SUPP PR PRN ×2 (08:30→21:39)
[2021-10-14] MEDS: AZITHROMYCIN INJ 500 MG, VIAL MATE ADAPTER 1 EACH in NS 250 ML IV SCH (13:00)
[2021-10-14] MEDS ORDERED: PROPOFOL 1,000 MG/100 ML VIAL As Ordered ONE (14:33)
[2021-10-14] MEDS ORDERED: NOREPINEPHRINE 4 MG/4 ML AMP As Ordered ONE (14:37)
[2021-10-14] MEDS ORDERED: MIDAZOLAM INJ 2MG/2ML VIAL (J2250 PER 1MG) As Ordered ONE ×2 (14:43→14:55)
[2021-10-14] MEDS ORDERED: fentaNYL 100 MCG/2 ML INJECTION As Ordered ONE (14:47)
[2021-10-14] MEDS: LR 500 ML IV SCH ×2 (15:51→16:08)
[2021-10-14] MEDS ORDERED: ROCURONIUM BROMIDE 50 MG/5 ML VIAL ONE (16:26)
[2021-10-14] MEDS ORDERED: propofoL 200 MG/20 ML VIAL ONE (16:26)
[2021-10-14] MEDS ORDERED: ETOMIDATE INJ 20MG/10ML VIAL ONE (16:26)
[2021-10-14] MEDS: NOREPINEPHRINE BITARTRATE 8 MG in D5W 492 ML IV SCH ×2 (17:00→21:38)
[2021-10-14] MEDS ORDERED: ETOMIDATE INJ 20MG/10ML VIAL IV STA (17:11)
[2021-10-14] MEDS ORDERED: MIDAZOLAM INJ 2MG/2ML VIAL (J2250 PER 1MG) IV STA (17:11)
[2021-10-14] MEDS ORDERED: ROCURONIUM BROMIDE 50 MG/5 ML VIAL IV SCH (17:15)
[2021-10-14] MEDS ORDERED: fentaNYL 100 MCG/2 ML INJECTION IV ONE ×2 (17:15)
[2021-10-14] MEDS ORDERED: propofoL 200 MG/20 ML VIAL IV ONE (17:15)
[2021-10-14] MEDS ORDERED: MIDAZOLAM INJ 2MG/2ML VIAL (J2250 PER 1MG) IV ONE (17:15)
[2021-10-14] MEDS: propofoL 1,000 MG in IV 1 EA IV SCH ×2 (17:27→21:37)
[2021-10-14] MEDS: fentaNYL CITRATE 1,000 MCG in NS 80 ML IV SCH (20:28)
[2021-10-14] MEDS: hydrOXYzine 25 MG TAB PO SCH (20:29)
[2021-10-14] MEDS: TAMSULOSIN 0.4 MG CAP PO SCH (20:29)
[2021-10-15] VITALS (65 sets, daily range): BP systolic 86–109; BP diastolic 48–59
[2021-10-15] MEDS: propofoL 1,000 MG in IV 1 EA IV SCH ×6 (01:20→20:07)
[2021-10-15 05:08] LABS: BASO # 0.1 10^3/uL (0.0-0.2); BASO % 0.4 % (0.0-1.0); EOS # 1.8 10^3/uL (0.0-0.5); EOS % 10.8 % (0.0-3.0); HEMATOCRIT 32.3 % (42.0-52.0); HEMOGLOBIN 10.5 g/dl (13.5-17.5); LYMPH # 1.3 10^3/uL (1.5-5.0); LYMPH % 8.1 % (24.0-44.0); MEAN CORPUSCULAR HGB CONC 32.5 g/dl (32.0-36.5); MEAN CORPUSCULAR VOLUME 92.3 fl (80.0-96.0); MONO # 1.2 10^3/uL (0.0-0.8); MONO % 7.1 % (2.0-8.0); NEUTROPHILS # 12.1 10^3/uL (1.5-8.5); NEUTROPHILS % 73.2 % (36.0-66.0); PLATELET COUNT, AUTOMATED 246 10^3/uL (150-450); WHITE BLOOD COUNT 16.5 10^3/uL (4.0-10.0)
[2021-10-15] MEDS: fentaNYL CITRATE 1,000 MCG in NS 80 ML IV SCH ×2 (05:20→14:36)
[2021-10-15 05:37] LABS: ALBUMIN 2.5 GM/DL (3.2-5.2); BILIRUBIN,TOTAL 0.9 MG/DL (0.2-1.0); CREATININE FOR GFR 1.54 MG/DL (0.70-1.30); MAGNESIUM LEVEL 2.5 MG/DL (1.8-2.4); PHOSPHORUS LEVEL 3.9 MG/DL (2.5-4.9); POTASSIUM SERUM 3.7 MEQ/L (3.5-5.1)
[2021-10-15] MEDS: LEVOTHYROXINE 50MCG TABLET (0.05MG) PO SCH (05:52)
[2021-10-15] MEDS: ASPIRIN 81 MG CHEW TABLET PO SCH (07:34)
[2021-10-15] MEDS: cefTRIAXone SOD 2 GM in D5W MINI-BAG PLUS 50 ML IV SCH (07:49)
[2021-10-15] MEDS: PANTOPRAZOLE 40MG VIAL (C9113 PER 1) IV SCH (07:50)
[2021-10-15] MEDS: ENOXAPARIN 40MG/0.4ML SYRINGE (J1650 PER 10MG) SC SCH (07:50)
[2021-10-15] MEDS: MIDAZOLAM INJ 2MG/2ML VIAL (J2250 PER 1MG) IV PRN ×2 (08:15→20:11)
[2021-10-15] MEDS: NOREPINEPHRINE BITARTRATE 8 MG in D5W 492 ML IV SCH ×3 (08:48→13:52)
[2021-10-15] MEDS ORDERED: LR 1,000 ML IV SCH (09:05)
[2021-10-15] MEDS: AZITHROMYCIN INJ 500 MG, VIAL MATE ADAPTER 1 EACH in NS 250 ML IV SCH (12:49)
[2021-10-15] MEDS: TAMSULOSIN 0.4 MG CAP PO SCH (20:11)
[2021-10-15] MEDS: hydrOXYzine 25 MG TAB PO SCH (20:11)
[2021-10-16] VITALS (76 sets, daily range): BP systolic 90–110; BP diastolic 50–59
[2021-10-16] MEDS: propofoL 1,000 MG in IV 1 EA IV SCH ×4 (00:02→20:04)
[2021-10-16] MEDS: fentaNYL CITRATE 1,000 MCG in NS 80 ML IV SCH ×2 (00:52→12:00)
[2021-10-16 05:20] LABS: BASO # 0.1 10^3/uL (0.0-0.2); BASO % 0.5 % (0.0-1.0); EOS # 2.2 10^3/uL (0.0-0.5); EOS % 14.2 % (0.0-3.0); HEMATOCRIT 30.8 % (42.0-52.0); HEMOGLOBIN 9.8 g/dl (13.5-17.5); LYMPH % 6.3 % (24.0-44.0); MEAN CORPUSCULAR HEMOGLOBIN 30.1 pg (27.0-33.0); MEAN CORPUSCULAR HGB CONC 31.8 g/dl (32.0-36.5); MEAN CORPUSCULAR VOLUME 94.5 fl (80.0-96.0); MONO % 6.3 % (2.0-8.0); NEUTROPHILS % 72.2 % (36.0-66.0); PLATELET COUNT, AUTOMATED 266 10^3/uL (150-450); RED BLOOD COUNT 3.26 10^6/uL (4.30-6.10); WHITE BLOOD COUNT 15.2 10^3/uL (4.0-10.0)
[2021-10-16 05:39] LABS: CALCIUM LEVEL 8.3 MG/DL (8.8-10.2); CREATININE FOR GFR 1.51 MG/DL (0.70-1.30); GLOMERULAR FILTRATION RATE 47.1 (>35); MAGNESIUM LEVEL 2.6 MG/DL (1.8-2.4); POTASSIUM SERUM 3.5 MEQ/L (3.5-5.1)
[2021-10-16] MEDS: LEVOTHYROXINE 50MCG TABLET (0.05MG) PO SCH (05:44)
[2021-10-16 06:05] LABS: ABG BASE EXCESS -4.9 (-2.0-2.0); ABG HCO3 21.7 MEQ/L (22.0-26.0); ABG PARTIAL PRESSURE CO2 47.1 mmHg (35.0-45.0); ABG PARTIAL PRESSURE O2 148.4 mmHg (75.0-100.0); ABG STANDARD HCO3 20.4 MEQ/L (22.0-26.0); ABG TOTAL CO2 23.2 MEQ/L (23.0-31.0); ABG pH (ARTERIAL) 7.282 UNITS (7.350-7.450)
[2021-10-16] MEDS: NOREPINEPHRINE BITARTRATE 8 MG in D5W 492 ML IV SCH ×2 (06:20→15:00)
[2021-10-16] MEDS: ASPIRIN 81 MG CHEW TABLET PO SCH (08:40)
[2021-10-16] MEDS: PANTOPRAZOLE 40MG VIAL (C9113 PER 1) IV SCH (08:41)
[2021-10-16] MEDS: ENOXAPARIN 40MG/0.4ML SYRINGE (J1650 PER 10MG) SC SCH (08:41)
[2021-10-16] MEDS: CHLORHEXIDINE GLUCONATE 0.12 % 15ML UDC (PERIDEX ORAL RINSE) MT SCH ×2 (08:41→23:17)
[2021-10-16] MEDS: cefTRIAXone SOD 2 GM in D5W MINI-BAG PLUS 50 ML IV SCH (08:41)
[2021-10-16 08:59] LABS: CK-MB VALUE MASS 2.1 NG/ML (<3.6); MB/CK RELATIVE INDEX 1.68 (< OR =4)
[2021-10-16] MEDS: dexameTHASONE 20MG/5ML VIAL (J1100 PER 1MG) IV SCH (11:22)
[2021-10-16] MEDS: BARICITINIB 2MG TABLET (OLUMIANT) FOR EUA PO SCH (11:23)
[2021-10-16] MEDS ORDERED: REMDESIVIR 200 MG in NS 250 ML IV ONE (12:00)
[2021-10-16 12:46] LABS: INR 1.24
[2021-10-16 12:47] LABS: PARTIAL THROMBOPLASTIN TIME 42.4 SECONDS (25.9-37.0)
[2021-10-16] MEDS: AZITHROMYCIN INJ 500 MG, VIAL MATE ADAPTER 1 EACH in NS 250 ML IV SCH (14:00)
[2021-10-16] MEDS ORDERED: SODIUM CHLORIDE 0.9% INJ 10 ML SYR IV ONE (14:00)
[2021-10-16] MEDS: MIDAZOLAM INJ 2MG/2ML VIAL (J2250 PER 1MG) IV PRN (14:45)
[2021-10-16 14:52] LABS: D-DIMER QUANT > 4000 ng/ml (<500)
[2021-10-16 15:11] LABS: BODY FLUID CULTURE Not indicated. (.); LEGIONELLA ANTIGEN URINE Negative (Negative); ORGANISM ID Not indicated. (.); SPECIMEN SOURCE Urine (.); URINE STREP PNEUMONIAE ANTIGEN Negative (Negative)
[2021-10-16] MEDS: hydrOXYzine 25 MG TAB PO SCH (23:17)
[2021-10-16] MEDS: TAMSULOSIN 0.4 MG CAP PO SCH (23:17)
[2021-10-17] VITALS (42 sets, daily range): BP systolic 101–137; BP diastolic 49–65
[2021-10-17] MEDS: propofoL 1,000 MG in IV 1 EA IV SCH ×4 (04:36→23:20)
[2021-10-17 06:06] LABS: EOS % 0.2 % (0.0-3.0); HEMOGLOBIN 9.4 g/dl (13.5-17.5); LYMPH # 0.5 10^3/uL (1.5-5.0); LYMPH % 9.5 % (24.0-44.0); MEAN CORPUSCULAR HEMOGLOBIN 29.8 pg (27.0-33.0); MEAN CORPUSCULAR HGB CONC 33.6 g/dl (32.0-36.5); MEAN CORPUSCULAR VOLUME 88.9 fl (80.0-96.0); MONO # 0.3 10^3/uL (0.0-0.8); NEUTROPHILS # 4.3 10^3/uL (1.5-8.5); NEUTROPHILS % 84.7 % (36.0-66.0); PLATELET COUNT, AUTOMATED 247 10^3/uL (150-450); RED BLOOD COUNT 3.15 10^6/uL (4.30-6.10); WHITE BLOOD COUNT 5.1 10^3/uL (4.0-10.0)
[2021-10-17] MEDS: LEVOTHYROXINE 50MCG TABLET (0.05MG) PO SCH (06:06)
[2021-10-17] MEDS: fentaNYL CITRATE 1,000 MCG in NS 80 ML IV SCH (06:20)
[2021-10-17 06:22] LABS: CALCIUM LEVEL 8.5 MG/DL (8.8-10.2); CREATININE FOR GFR 1.51 MG/DL (0.70-1.30); GLOMERULAR FILTRATION RATE 47.1 (>35); POTASSIUM SERUM 3.8 MEQ/L (3.5-5.1)
[2021-10-17] MEDS: ASPIRIN 81 MG CHEW TABLET PO SCH (10:00)
[2021-10-17] MEDS: ENOXAPARIN 40MG/0.4ML SYRINGE (J1650 PER 10MG) SC SCH (10:00)
[2021-10-17] MEDS: cefTRIAXone SOD 2 GM in D5W MINI-BAG PLUS 50 ML IV SCH (10:00)
[2021-10-17] MEDS: CHLORHEXIDINE GLUCONATE 0.12 % 15ML UDC (PERIDEX ORAL RINSE) MT SCH ×2 (10:01→20:36)
[2021-10-17] MEDS: dexameTHASONE 20MG/5ML VIAL (J1100 PER 1MG) IV SCH (10:01)
[2021-10-17] MEDS: PANTOPRAZOLE 40MG VIAL (C9113 PER 1) IV SCH (10:01)
[2021-10-17] MEDS: BARICITINIB 2MG TABLET (OLUMIANT) FOR EUA PO SCH (10:01)
[2021-10-17] MEDS: REMDESIVIR 100 MG in NS 250 ML IV SCH (11:12)
[2021-10-17] MEDS: SODIUM CHLORIDE 0.9% INJ 10 ML SYR IV SCH (12:31)
[2021-10-17] MEDS: AZITHROMYCIN INJ 500 MG, VIAL MATE ADAPTER 1 EACH in NS 250 ML IV SCH (12:31)
[2021-10-17] MEDS: hydrOXYzine 25 MG TAB PO SCH (20:37)
[2021-10-17] MEDS: TAMSULOSIN 0.4 MG CAP PO SCH (20:37)
[2021-10-18] VITALS (23 sets, daily range): BP systolic 117–143; BP diastolic 57–66
[2021-10-18] MEDS: fentaNYL CITRATE 1,000 MCG in NS 80 ML IV SCH ×2 (01:34→22:26)
[2021-10-18 05:26] LABS: BASO % 0.2 % (0.0-1.0); EOS % 0.1 % (0.0-3.0); HEMATOCRIT 27.6 % (42.0-52.0); HEMOGLOBIN 9.1 g/dl (13.5-17.5); LYMPH # 0.9 10^3/uL (1.5-5.0); LYMPH % 8.9 % (24.0-44.0); MEAN CORPUSCULAR HEMOGLOBIN 29.3 pg (27.0-33.0); MEAN CORPUSCULAR VOLUME 88.7 fl (80.0-96.0); MONO # 0.7 10^3/uL (0.0-0.8); MONO % 7.2 % (2.0-8.0); NEUTROPHILS # 8.3 10^3/uL (1.5-8.5); NEUTROPHILS % 82.5 % (36.0-66.0); PLATELET COUNT, AUTOMATED 315 10^3/uL (150-450); RED BLOOD COUNT 3.11 10^6/uL (4.30-6.10); WHITE BLOOD COUNT 10.1 10^3/uL (4.0-10.0)
[2021-10-18 05:45] LABS: CALCIUM LEVEL 8.1 MG/DL (8.8-10.2); CREATININE FOR GFR 1.47 MG/DL (0.70-1.30); GLOMERULAR FILTRATION RATE 48.6 (>35); POTASSIUM SERUM 3.8 MEQ/L (3.5-5.1)
[2021-10-18 05:51] LABS: ABG BASE EXCESS -0.9 (-2.0-2.0); ABG HCO3 24.3 MEQ/L (22.0-26.0); ABG O2 SATURATION 98.6 % (95.0-99.0); ABG PARTIAL PRESSURE CO2 42.3 mmHg (35.0-45.0); ABG PARTIAL PRESSURE O2 138.4 mmHg (75.0-100.0); ABG STANDARD HCO3 23.8 MEQ/L (22.0-26.0); ABG TOTAL CO2 25.6 MEQ/L (23.0-31.0); ABG pH (ARTERIAL) 7.377 UNITS (7.350-7.450)
[2021-10-18] MEDS: LEVOTHYROXINE 50MCG TABLET (0.05MG) PO SCH (05:53)
[2021-10-18] MEDS: BARICITINIB 2MG TABLET (OLUMIANT) FOR EUA PO SCH (07:39)
[2021-10-18] MEDS: ASPIRIN 81 MG CHEW TABLET PO SCH (07:39)
[2021-10-18] MEDS: CHLORHEXIDINE GLUCONATE 0.12 % 15ML UDC (PERIDEX ORAL RINSE) MT SCH ×2 (07:39→20:37)
[2021-10-18] MEDS: PANTOPRAZOLE 40MG VIAL (C9113 PER 1) IV SCH (07:39)
[2021-10-18] MEDS: dexameTHASONE 20MG/5ML VIAL (J1100 PER 1MG) IV SCH (07:40)
[2021-10-18] MEDS: cefTRIAXone SOD 2 GM in D5W MINI-BAG PLUS 50 ML IV SCH (07:40)
[2021-10-18] MEDS: ENOXAPARIN 40MG/0.4ML SYRINGE (J1650 PER 10MG) SC SCH ×2 (07:42→20:39)
[2021-10-18] MEDS: SERTRALINE HCL 50 MG TAB PO SCH (10:49)
[2021-10-18] MEDS: propofoL 1,000 MG in IV 1 EA IV SCH ×3 (10:50→21:30)
[2021-10-18] MEDS: MEMANTINE 5MG TABLET (NAMENDA) PO SCH ×2 (11:25→20:39)
[2021-10-18] MEDS: REMDESIVIR 100 MG in NS 250 ML IV SCH (12:54)
[2021-10-18] MEDS: SODIUM CHLORIDE 0.9% INJ 10 ML SYR IV SCH (12:57)
[2021-10-18] MEDS ORDERED: MIRALAX *UNIT DOSE* 17GM PACKET PO PRN (14:10)
[2021-10-18] MEDS: SENOKOT S TAB PO PRN (15:47)
[2021-10-18] MEDS: TAMSULOSIN 0.4 MG CAP PO SCH (20:39)
[2021-10-18] MEDS: ATORVASTATIN 20 MG TAB PO SCH (20:39)
[2021-10-19] VITALS (25 sets, daily range): BP systolic 118–139; BP diastolic 56–65
[2021-10-19] MEDS: propofoL 1,000 MG in IV 1 EA IV SCH ×5 (01:45→21:45)
[2021-10-19 04:47] LABS: BASO # 0.1 10^3/uL (0.0-0.2); BASO % 0.3 % (0.0-1.0); EOS # 0.4 10^3/uL (0.0-0.5); EOS % 2.2 % (0.0-3.0); HEMATOCRIT 31.2 % (42.0-52.0); LYMPH % 11.8 % (24.0-44.0); MEAN CORPUSCULAR HEMOGLOBIN 29.3 pg (27.0-33.0); MEAN CORPUSCULAR HGB CONC 32.1 g/dl (32.0-36.5); MEAN CORPUSCULAR VOLUME 91.5 fl (80.0-96.0); MONO % 9.9 % (2.0-8.0); NEUTROPHILS # 12.2 10^3/uL (1.5-8.5); NEUTROPHILS % 73.5 % (36.0-66.0); PLATELET COUNT, AUTOMATED 388 10^3/uL (150-450); RED BLOOD COUNT 3.41 10^6/uL (4.30-6.10); WHITE BLOOD COUNT 16.6 10^3/uL (4.0-10.0)
[2021-10-19 04:48] LABS: MONO # 1.7 10^3/uL (0.0-0.8)
[2021-10-19 05:07] LABS: CALCIUM LEVEL 8.1 MG/DL (8.8-10.2); CREATININE FOR GFR 1.27 MG/DL (0.70-1.30); GLOMERULAR FILTRATION RATE 57.5 (>35); POTASSIUM SERUM 4.2 MEQ/L (3.5-5.1)
[2021-10-19 05:47] LABS: ABG BASE EXCESS -0.5 (-2.0-2.0); ABG O2 SATURATION 98.3 % (95.0-99.0); ABG PARTIAL PRESSURE CO2 44.5 mmHg (35.0-45.0); ABG PARTIAL PRESSURE O2 132.8 mmHg (75.0-100.0); ABG STANDARD HCO3 24.1 MEQ/L (22.0-26.0); ABG TOTAL CO2 26.4 MEQ/L (23.0-31.0); ABG pH (ARTERIAL) 7.368 UNITS (7.350-7.450)
[2021-10-19] MEDS: LEVOTHYROXINE 50MCG TABLET (0.05MG) PO SCH (06:00)
[2021-10-19] MEDS: CHLORHEXIDINE GLUCONATE 0.12 % 15ML UDC (PERIDEX ORAL RINSE) MT SCH ×2 (09:41→21:14)
[2021-10-19] MEDS: dexameTHASONE 20MG/5ML VIAL (J1100 PER 1MG) IV SCH (09:41)
[2021-10-19] MEDS: ENOXAPARIN 40MG/0.4ML SYRINGE (J1650 PER 10MG) SC SCH ×2 (09:41→21:14)
[2021-10-19] MEDS: cefTRIAXone SOD 2 GM in D5W MINI-BAG PLUS 50 ML IV SCH (09:41)
[2021-10-19] MEDS: PANTOPRAZOLE 40MG VIAL (C9113 PER 1) IV SCH (09:41)
[2021-10-19] MEDS: ASPIRIN 81 MG CHEW TABLET PO SCH (09:42)
[2021-10-19] MEDS: SERTRALINE HCL 50 MG TAB PO SCH (09:42)
[2021-10-19] MEDS: SENOKOT S TAB PO PRN (09:42)
[2021-10-19] MEDS: BARICITINIB 2MG TABLET (OLUMIANT) FOR EUA PO SCH (09:43)
[2021-10-19] MEDS: MEMANTINE 5MG TABLET (NAMENDA) PO SCH ×2 (09:43→21:14)
[2021-10-19] MEDS: REMDESIVIR 100 MG in NS 250 ML IV SCH (12:55)
[2021-10-19] MEDS: SODIUM CHLORIDE 0.9% INJ 10 ML SYR IV SCH (14:00)
[2021-10-19] MEDS ORDERED: LIDOCAINE 1% MDV 20ML VIAL As Ordered ONE (16:28)
[2021-10-19] MEDS: fentaNYL CITRATE 1,000 MCG in NS 80 ML IV SCH (18:09)
[2021-10-19] MEDS ORDERED: SODIUM CHLORIDE 0.9% INJ 10 ML SYR IV PRN (19:25)
[2021-10-19] MEDS: ATORVASTATIN 20 MG TAB PO SCH (21:14)
[2021-10-19] MEDS: TAMSULOSIN 0.4 MG CAP PO SCH (21:14)
[2021-10-20] VITALS (18 sets, daily range): BP systolic 120–174; BP diastolic 56–76
[2021-10-20 04:43] LABS: BASO # 0.1 10^3/uL (0.0-0.2); BASO % 0.4 % (0.0-1.0); EOS # 0.7 10^3/uL (0.0-0.5); EOS % 4.2 % (0.0-3.0); HEMATOCRIT 29.9 % (42.0-52.0); HEMOGLOBIN 9.6 g/dl (13.5-17.5); LYMPH # 1.9 10^3/uL (1.5-5.0); LYMPH % 12.1 % (24.0-44.0); MEAN CORPUSCULAR HEMOGLOBIN 29.4 pg (27.0-33.0); MEAN CORPUSCULAR HGB CONC 32.1 g/dl (32.0-36.5); MEAN CORPUSCULAR VOLUME 91.7 fl (80.0-96.0); MONO # 1.5 10^3/uL (0.0-0.8); MONO % 9.3 % (2.0-8.0); NEUTROPHILS # 10.8 10^3/uL (1.5-8.5); NEUTROPHILS % 69.4 % (36.0-66.0); PLATELET COUNT, AUTOMATED 368 10^3/uL (150-450); RED BLOOD COUNT 3.26 10^6/uL (4.30-6.10); WHITE BLOOD COUNT 15.6 10^3/uL (4.0-10.0)
[2021-10-20 05:04] LABS: BLOOD UREA NITROGEN 66 MG/DL (7-18); CARBON DIOXIDE LEVEL 28 MEQ/L (21-32); CHLORIDE LEVEL 112 MEQ/L (98-107); CREATININE FOR GFR 1.11 MG/DL (0.70-1.30); GLOMERULAR FILTRATION RATE > 60.0 (>35); GLUCOSE, FASTING 102 MG/DL (70-100); POTASSIUM SERUM 4.3 MEQ/L (3.5-5.1); SODIUM LEVEL 145 MEQ/L (136-145)
[2021-10-20] MEDS: propofoL 1,000 MG in IV 1 EA IV SCH ×4 (05:39→22:00)
[2021-10-20] MEDS: LEVOTHYROXINE 50MCG TABLET (0.05MG) PO SCH ×2 (06:00→22:45)
[2021-10-20] MEDS: SODIUM CHLORIDE 0.9% INJ 10 ML SYR IV SCH ×3 (06:07→17:50)
[2021-10-20] MEDS: BARICITINIB 2MG TABLET (OLUMIANT) FOR EUA PO SCH (07:49)
[2021-10-20] MEDS: ASPIRIN 81 MG CHEW TABLET PO SCH (07:49)
[2021-10-20] MEDS: CHLORHEXIDINE GLUCONATE 0.12 % 15ML UDC (PERIDEX ORAL RINSE) MT SCH ×2 (07:50→20:50)
[2021-10-20] MEDS: SERTRALINE HCL 50 MG TAB PO SCH (07:50)
[2021-10-20] MEDS: MEMANTINE 5MG TABLET (NAMENDA) PO SCH ×2 (07:50→20:50)
[2021-10-20] MEDS: ENOXAPARIN 40MG/0.4ML SYRINGE (J1650 PER 10MG) SC SCH ×2 (07:51→20:50)
[2021-10-20] MEDS: dexameTHASONE 20MG/5ML VIAL (J1100 PER 1MG) IV SCH (07:51)
[2021-10-20] MEDS: PANTOPRAZOLE 40MG VIAL (C9113 PER 1) IV SCH (07:55)
[2021-10-20] MEDS: REMDESIVIR 100 MG in NS 250 ML IV SCH (11:43)
[2021-10-20] MEDS: fentaNYL CITRATE 1,000 MCG in NS 80 ML IV SCH (14:15)
[2021-10-20] MEDS: ATORVASTATIN 20 MG TAB PO SCH (20:50)
[2021-10-20] MEDS: TAMSULOSIN 0.4 MG CAP PO SCH (20:50)
[2021-10-21] VITALS (22 sets, daily range): BP systolic 112–160; BP diastolic 54–71
[2021-10-21] MEDS: propofoL 1,000 MG in IV 1 EA IV SCH ×5 (02:43→21:02)
[2021-10-21] MEDS: SODIUM CHLORIDE 0.9% INJ 10 ML SYR IV SCH ×2 (06:09→18:00)
[2021-10-21 06:22] LABS: BASO # 0.2 10^3/uL (0.0-0.2); BASO % 0.7 % (0.0-1.0); EOS # 1.3 10^3/uL (0.0-0.5); EOS % 5.2 % (0.0-3.0); HEMATOCRIT 35.3 % (42.0-52.0); HEMOGLOBIN 11.2 g/dl (13.5-17.5); LYMPH # 2.8 10^3/uL (1.5-5.0); LYMPH % 11.3 % (24.0-44.0); MEAN CORPUSCULAR HEMOGLOBIN 29.1 pg (27.0-33.0); MEAN CORPUSCULAR HGB CONC 31.7 g/dl (32.0-36.5); MEAN CORPUSCULAR VOLUME 91.7 fl (80.0-96.0); PLATELET COUNT, AUTOMATED 476 10^3/uL (150-450); RED BLOOD COUNT 3.85 10^6/uL (4.30-6.10); WHITE BLOOD COUNT 24.6 10^3/uL (4.0-10.0)
[2021-10-21 06:27] LABS: MONO # 1.7 10^3/uL (0.0-0.8)
[2021-10-21] MEDS: MIDAZOLAM INJ 2MG/2ML VIAL (J2250 PER 1MG) IV PRN (06:44)
[2021-10-21 06:48] LABS: BLOOD UREA NITROGEN 53 MG/DL (7-18); CALCIUM LEVEL 8.8 MG/DL (8.8-10.2); CARBON DIOXIDE LEVEL 26 MEQ/L (21-32); CHLORIDE LEVEL 112 MEQ/L (98-107); CREATININE FOR GFR 0.87 MG/DL (0.70-1.30); GLOMERULAR FILTRATION RATE > 60.0 (>35); GLUCOSE, FASTING 82 MG/DL (70-100); MAGNESIUM LEVEL 2.6 MG/DL (1.8-2.4); POTASSIUM SERUM 3.9 MEQ/L (3.5-5.1); SODIUM LEVEL 144 MEQ/L (136-145)
[2021-10-21] MEDS: dexameTHASONE 20MG/5ML VIAL (J1100 PER 1MG) IV SCH (07:34)
[2021-10-21] MEDS: PANTOPRAZOLE 40MG VIAL (C9113 PER 1) IV SCH (07:34)
[2021-10-21] MEDS: CHLORHEXIDINE GLUCONATE 0.12 % 15ML UDC (PERIDEX ORAL RINSE) MT SCH ×2 (07:34→21:03)
[2021-10-21] MEDS: ENOXAPARIN 40MG/0.4ML SYRINGE (J1650 PER 10MG) SC SCH ×2 (07:34→21:03)
[2021-10-21] MEDS: SERTRALINE HCL 50 MG TAB PO SCH (07:35)
[2021-10-21] MEDS: BARICITINIB 2MG TABLET (OLUMIANT) FOR EUA PO SCH (07:35)
[2021-10-21] MEDS: ASPIRIN 81 MG CHEW TABLET PO SCH (07:35)
[2021-10-21] MEDS: MEMANTINE 5MG TABLET (NAMENDA) PO SCH ×2 (07:36→21:03)
[2021-10-21] MEDS: fentaNYL CITRATE 1,000 MCG in NS 80 ML IV SCH ×2 (08:45→22:18)
[2021-10-21 08:50] LABS: HEMATOCRIT 33.3 % (42.0-52.0); HEMOGLOBIN 10.7 g/dl (13.5-17.5); MEAN CORPUSCULAR HEMOGLOBIN 29.7 pg (27.0-33.0); MEAN CORPUSCULAR HGB CONC 32.1 g/dl (32.0-36.5); MEAN CORPUSCULAR VOLUME 92.5 fl (80.0-96.0); PLATELET COUNT, AUTOMATED 456 10^3/uL (150-450); WHITE BLOOD COUNT 23.3 10^3/uL (4.0-10.0)
[2021-10-21 09:17] LABS: ATYPICAL LYMPH 1 % (0-5); EOSINOPHILS 4 % (0-3); LYMPHOCYTES 8 % (16-44); MONOCYTES 3 % (0-5); NEUTROPHILS 83 % (28-66)
[2021-10-21 09:18] LABS: PLATELET ESTIMATE NORMAL (NORMAL)
[2021-10-21 11:16] LABS: ABG BASE EXCESS -1.5 (-2.0-2.0); ABG HCO3 23.7 MEQ/L (22.0-26.0); ABG O2 SATURATION 97.3 % (95.0-99.0); ABG PARTIAL PRESSURE CO2 41.6 mmHg (35.0-45.0); ABG PARTIAL PRESSURE O2 96.6 mmHg (75.0-100.0); ABG STANDARD HCO3 23.2 MEQ/L (22.0-26.0); ABG TOTAL CO2 24.9 MEQ/L (23.0-31.0); ABG pH (ARTERIAL) 7.373 UNITS (7.350-7.450)
[2021-10-21] MEDS: TAMSULOSIN 0.4 MG CAP PO SCH (21:00)
[2021-10-21] MEDS: ATORVASTATIN 20 MG TAB PO SCH (21:04)
[2021-10-22] VITALS (32 sets, daily range): BP systolic 118–166; BP diastolic 56–72
[2021-10-22] MEDS: propofoL 1,000 MG in IV 1 EA IV SCH ×3 (01:07→10:15)
[2021-10-22 05:25] LABS: BASO # 0.1 10^3/uL (0.0-0.2); BASO % 0.7 % (0.0-1.0); EOS # 1.4 10^3/uL (0.0-0.5); EOS % 6.4 % (0.0-3.0); HEMATOCRIT 33.9 % (42.0-52.0); HEMOGLOBIN 10.9 g/dl (13.5-17.5); LYMPH # 2.6 10^3/uL (1.5-5.0); LYMPH % 12.2 % (24.0-44.0); MEAN CORPUSCULAR HEMOGLOBIN 29.9 pg (27.0-33.0); MEAN CORPUSCULAR HGB CONC 32.2 g/dl (32.0-36.5); MEAN CORPUSCULAR VOLUME 92.9 fl (80.0-96.0); MONO # 1.3 10^3/uL (0.0-0.8); NEUTROPHILS # 14.3 10^3/uL (1.5-8.5); PLATELET COUNT, AUTOMATED 476 10^3/uL (150-450); RED BLOOD COUNT 3.65 10^6/uL (4.30-6.10); WHITE BLOOD COUNT 21.3 10^3/uL (4.0-10.0)
[2021-10-22 05:47] LABS: BLOOD UREA NITROGEN 53 MG/DL (7-18); CARBON DIOXIDE LEVEL 30 MEQ/L (21-32); CHLORIDE LEVEL 111 MEQ/L (98-107); CREATININE FOR GFR 0.93 MG/DL (0.70-1.30); GLOMERULAR FILTRATION RATE > 60.0 (>35); GLUCOSE, FASTING 137 MG/DL (70-100); POTASSIUM SERUM 4.3 MEQ/L (3.5-5.1); SODIUM LEVEL 146 MEQ/L (136-145)
[2021-10-22] MEDS: LEVOTHYROXINE 50MCG TABLET (0.05MG) PO SCH (05:49)
[2021-10-22] MEDS: SODIUM CHLORIDE 0.9% INJ 10 ML SYR IV SCH ×2 (05:51→18:07)
[2021-10-22] MEDS: CHLORHEXIDINE GLUCONATE 0.12 % 15ML UDC (PERIDEX ORAL RINSE) MT SCH ×2 (08:05→20:56)
[2021-10-22] MEDS: MEMANTINE 5MG TABLET (NAMENDA) PO SCH ×2 (08:05→20:57)
[2021-10-22] MEDS: ASPIRIN 81 MG CHEW TABLET PO SCH (08:05)
[2021-10-22] MEDS: PANTOPRAZOLE 40MG VIAL (C9113 PER 1) IV SCH (08:06)
[2021-10-22] MEDS: SERTRALINE HCL 50 MG TAB PO SCH (08:06)
[2021-10-22] MEDS: dexameTHASONE 20MG/5ML VIAL (J1100 PER 1MG) IV SCH (08:06)
[2021-10-22] MEDS: ENOXAPARIN 40MG/0.4ML SYRINGE (J1650 PER 10MG) SC SCH ×2 (08:06→20:57)
[2021-10-22] MEDS: amLODIPine 5 MG TAB PO SCH (08:06)
[2021-10-22] MEDS: BARICITINIB 2MG TABLET (OLUMIANT) FOR EUA PO SCH (08:07)
[2021-10-22] MEDS: ATORVASTATIN 20 MG TAB PO SCH (20:57)
[2021-10-22] MEDS: TAMSULOSIN 0.4 MG CAP PO SCH (21:00)
[2021-10-22] MEDS: MIDAZOLAM INJ 2MG/2ML VIAL (J2250 PER 1MG) IV PRN (23:53)
[2021-10-23] VITALS (47 sets, daily range): BP systolic 120–203; BP diastolic 57–93
[2021-10-23] MEDS: MIDAZOLAM INJ 2MG/2ML VIAL (J2250 PER 1MG) IV PRN ×7 (02:00→21:11)
[2021-10-23 06:05] LABS: BASO # 0.2 10^3/uL (0.0-0.2); BASO % 0.6 % (0.0-1.0); EOS # 0.3 10^3/uL (0.0-0.5); HEMATOCRIT 35.5 % (42.0-52.0); HEMOGLOBIN 11.3 g/dl (13.5-17.5); LYMPH % 11.3 % (24.0-44.0); MEAN CORPUSCULAR HEMOGLOBIN 28.8 pg (27.0-33.0); MEAN CORPUSCULAR HGB CONC 31.8 g/dl (32.0-36.5); MEAN CORPUSCULAR VOLUME 90.6 fl (80.0-96.0); MONO % 6.4 % (2.0-8.0); NEUTROPHILS # 19.8 10^3/uL (1.5-8.5); NEUTROPHILS % 75.2 % (36.0-66.0); PLATELET COUNT, AUTOMATED 645 10^3/uL (150-450); RED BLOOD COUNT 3.92 10^6/uL (4.30-6.10); WHITE BLOOD COUNT 26.2 10^3/uL (4.0-10.0)
[2021-10-23] MEDS: SODIUM CHLORIDE 0.9% INJ 10 ML SYR IV SCH ×2 (06:07→18:06)
[2021-10-23] MEDS: LEVOTHYROXINE 50MCG TABLET (0.05MG) PO SCH (06:07)
[2021-10-23 06:10] LABS: MONO # 1.7 10^3/uL (0.0-0.8)
[2021-10-23 06:22] LABS: BLOOD UREA NITROGEN 50 MG/DL (7-18); CALCIUM LEVEL 8.4 MG/DL (8.8-10.2); CARBON DIOXIDE LEVEL 26 MEQ/L (21-32); CHLORIDE LEVEL 111 MEQ/L (98-107); CREATININE FOR GFR 0.95 MG/DL (0.70-1.30); GLOMERULAR FILTRATION RATE > 60.0 (>35); GLUCOSE, FASTING 137 MG/DL (70-100); POTASSIUM SERUM 4.5 MEQ/L (3.5-5.1); SODIUM LEVEL 143 MEQ/L (136-145)
[2021-10-23] MEDS: SERTRALINE HCL 50 MG TAB PO SCH (08:30)
[2021-10-23] MEDS: ENOXAPARIN 40MG/0.4ML SYRINGE (J1650 PER 10MG) SC SCH ×2 (09:41→21:11)
[2021-10-23] MEDS: CHLORHEXIDINE GLUCONATE 0.12 % 15ML UDC (PERIDEX ORAL RINSE) MT SCH ×2 (09:41→21:10)
[2021-10-23] MEDS: PANTOPRAZOLE 40MG VIAL (C9113 PER 1) IV SCH (09:42)
[2021-10-23] MEDS: dexameTHASONE 20MG/5ML VIAL (J1100 PER 1MG) IV SCH (09:43)
[2021-10-23] MEDS: BARICITINIB 2MG TABLET (OLUMIANT) FOR EUA PO SCH (09:43)
[2021-10-23] MEDS: MEMANTINE 5MG TABLET (NAMENDA) PO SCH ×2 (09:44→21:10)
[2021-10-23] MEDS: ASPIRIN 81 MG CHEW TABLET PO SCH (09:45)
[2021-10-23] MEDS: amLODIPine 5 MG TAB PO SCH (09:45)
[2021-10-23] MEDS: FUROSEMIDE 40MG/4ML VIAL (J1940) IV SCH ×2 (10:54→18:06)
[2021-10-23] MEDS: propofoL 1,000 MG in IV 1 EA IV SCH (11:46)
[2021-10-23] MEDS: fentaNYL 100 MCG/2 ML INJECTION IV PRN ×2 (11:48→20:35)
[2021-10-23 11:57] LABS: ABG BASE EXCESS 3.5 (-2.0-2.0); ABG HCO3 27.6 MEQ/L (22.0-26.0); ABG O2 SATURATION 89.4 % (95.0-99.0); ABG PARTIAL PRESSURE CO2 40.3 mmHg (35.0-45.0); ABG PARTIAL PRESSURE O2 56.7 mmHg (75.0-100.0); ABG STANDARD HCO3 27.4 MEQ/L (22.0-26.0); ABG TOTAL CO2 28.9 MEQ/L (23.0-31.0); ABG pH (ARTERIAL) 7.454 UNITS (7.350-7.450)
[2021-10-23] MEDS: ATORVASTATIN 20 MG TAB PO SCH (21:10)
[2021-10-24] VITALS (38 sets, daily range): BP systolic 126–196; BP diastolic 55–91
[2021-10-24] MEDS: MIDAZOLAM INJ 2MG/2ML VIAL (J2250 PER 1MG) IV PRN ×5 (01:24→10:52)
[2021-10-24] MEDS: fentaNYL 100 MCG/2 ML INJECTION IV PRN (04:34)
[2021-10-24] MEDS: propofoL 1,000 MG in IV 1 EA IV SCH ×2 (04:36→15:15)
[2021-10-24] MEDS: LEVOTHYROXINE 50MCG TABLET (0.05MG) PO SCH (05:00)
[2021-10-24 06:04] LABS: ABG BASE EXCESS 5.1 (-2.0-2.0); ABG HCO3 29.2 MEQ/L (22.0-26.0); ABG O2 SATURATION 97.8 % (95.0-99.0); ABG PARTIAL PRESSURE CO2 40.9 mmHg (35.0-45.0); ABG STANDARD HCO3 29.1 MEQ/L (22.0-26.0); ABG TOTAL CO2 30.4 MEQ/L (23.0-31.0); ABG pH (ARTERIAL) 7.471 UNITS (7.350-7.450)
[2021-10-24] MEDS: SODIUM CHLORIDE 0.9% INJ 10 ML SYR IV SCH (06:09)
[2021-10-24 07:34] LABS: ALBUMIN 2.6 GM/DL (3.2-5.2); ALT/SGPT 39 U/L (12-78); BILIRUBIN,TOTAL 0.7 MG/DL (0.2-1.0); BLOOD UREA NITROGEN 53 MG/DL (7-18); CALCIUM LEVEL 8.7 MG/DL (8.8-10.2); CARBON DIOXIDE LEVEL 32 MEQ/L (21-32); CHLORIDE LEVEL 104 MEQ/L (98-107); GLOMERULAR FILTRATION RATE > 60.0 (>35); GLUCOSE, FASTING 138 MG/DL (70-100); POTASSIUM SERUM 4.2 MEQ/L (3.5-5.1); SODIUM LEVEL 142 MEQ/L (136-145); TOTAL PROTEIN 7.1 GM/DL (6.4-8.2)
[2021-10-24 07:40] LABS: BASO # 0.1 10^3/uL (0.0-0.2); BASO % 0.3 % (0.0-1.0); EOS # 0.9 10^3/uL (0.0-0.5); EOS % 2.6 % (0.0-3.0); HEMATOCRIT 38.8 % (42.0-52.0); HEMOGLOBIN 12.5 g/dl (13.5-17.5); LYMPH # 3.1 10^3/uL (1.5-5.0); LYMPH % 8.5 % (24.0-44.0); MEAN CORPUSCULAR HEMOGLOBIN 29.6 pg (27.0-33.0); MEAN CORPUSCULAR HGB CONC 32.2 g/dl (32.0-36.5); MEAN CORPUSCULAR VOLUME 91.7 fl (80.0-96.0); MONO % 6.1 % (2.0-8.0); NEUTROPHILS # 28.4 10^3/uL (1.5-8.5); NEUTROPHILS % 79.4 % (36.0-66.0); PLATELET COUNT, AUTOMATED 724 10^3/uL (150-450); RED BLOOD COUNT 4.23 10^6/uL (4.30-6.10)
[2021-10-24 07:42] LABS: MONO # 2.2 10^3/uL (0.0-0.8); WHITE BLOOD COUNT 35.7 10^3/uL (4.0-10.0)
[2021-10-24] MEDS: MEMANTINE 5MG TABLET (NAMENDA) PO SCH (09:02)
[2021-10-24] MEDS: CHLORHEXIDINE GLUCONATE 0.12 % 15ML UDC (PERIDEX ORAL RINSE) MT SCH (09:02)
[2021-10-24] MEDS: BARICITINIB 2MG TABLET (OLUMIANT) FOR EUA PO SCH (09:02)
[2021-10-24] MEDS: ASPIRIN 81 MG CHEW TABLET PO SCH (09:02)
[2021-10-24] MEDS: FUROSEMIDE 40MG/4ML VIAL (J1940) IV SCH (09:03)
[2021-10-24] MEDS: amLODIPine 5 MG TAB PO SCH (09:03)
[2021-10-24] MEDS: PANTOPRAZOLE 40MG VIAL (C9113 PER 1) IV SCH (09:03)
[2021-10-24] MEDS: ENOXAPARIN 40MG/0.4ML SYRINGE (J1650 PER 10MG) SC SCH (09:04)
[2021-10-24] MEDS: dexameTHASONE 20MG/5ML VIAL (J1100 PER 1MG) IV SCH (09:04)
[2021-10-24] MEDS ORDERED: fentaNYL CITRATE 1,000 MCG in NS 80 ML IV SCH (11:00)
[2021-10-24 14:21] LABS: ABG BASE EXCESS -0.7 (-2.0-2.0); ABG HCO3 26.8 MEQ/L (22.0-26.0); ABG PARTIAL PRESSURE CO2 55.8 mmHg (35.0-45.0); ABG PARTIAL PRESSURE O2 77.5 mmHg (75.0-100.0); ABG STANDARD HCO3 23.8 MEQ/L (22.0-26.0); ABG TOTAL CO2 28.5 MEQ/L (23.0-31.0); ABG pH (ARTERIAL) 7.299 UNITS (7.350-7.450)
[2021-10-24] MEDS ORDERED: MORPHINE 2 MG/ML 1ML VIAL (J2270) IV PRN (16:00)
[2021-10-24] MEDS ORDERED: SCOPOLAMINE 1MG TRANSDERMAL PATCH TOP PRN (16:00)
[2021-10-24] MEDS: LORazepam 2 MG/ML VIAL IV PRN ×2 (16:17→19:29)
[2021-10-24] MEDS: MORPHINE 2 MG/ML 1ML VIAL (J2270) IV PRN ×3 (17:55→20:52)
[2021-10-24] MEDS: MORPHINE 10MG/0.5ML ORAL CONCENTRATE SOLUTION U/D SL PRN (19:30)
[2021-10-25] MEDS: MORPHINE 10MG/0.5ML ORAL CONCENTRATE SOLUTION U/D SL PRN (00:17)
[2021-10-25 05:47] LABS: RSV AMPLIFICATION NEGATIVE (NEGATIVE)
== END 2021-10-25 06:14 | disposition expired | DRG 870 ==
LOC: M ED 08:07 → M ICU 12:31 → ENRESERV 12:44 → M ICU 10-16 09:30
PROVIDERS: ADMIT Internal Medicine Nephrology; ATTEND Internal Medicine Pulmonary Disease
PROC: 5A1955Z Respiratory Ventilation, Greater than 96 Consecutive Hours (ICD-10-PCS; principal; 2021-10-14)
PROC: 0BH17EZ Insertion of Endotracheal Airway into Trachea, Via Natural or Artificial Opening (ICD-10-PCS; 2021-10-14)
PROC: 06HM33Z Insertion of Infusion Device into Right Femoral Vein, Percutaneous Approach (ICD-10-PCS; 2021-10-14)
PROC: 02HV33Z Insertion of Infusion Device into Superior Vena Cava, Percutaneous Approach (ICD-10-PCS; 2021-10-19)
DX: A41.9 Sepsis, unspecified organism (principal); J15.211 Pneumonia due to Methicillin susceptible Staphylococcus aureus; J96.01 Acute respiratory failure with hypoxia; R65.21 Severe sepsis with septic shock; U07.1 COVID-19; I48.92 Unspecified atrial flutter; E87.2 Acidosis; E78.5 Hyperlipidemia, unspecified; Z51.5 Encounter for palliative care; F32.A Depression, unspecified; N40.0 Benign prostatic hyperplasia without lower urinary tract symptoms; Z66 Do not resuscitate; E03.9 Hypothyroidism, unspecified; I25.10 Atherosclerotic heart disease of native coronary artery without angina pectoris; Z85.828 Personal history of other malignant neoplasm of skin; G31.84 Mild cognitive impairment of uncertain or unknown etiology; L28.1 Prurigo nodularis; Z87.891 Personal history of nicotine dependence; I50.9 Heart failure, unspecified; I11.0 Hypertensive heart disease with heart failure; Z95.3 Presence of xenogenic heart valve; Z79.82 Long term (current) use of aspirin; Z79.899 Other long term (current) drug therapy